=== PATIENT | female | born 1945 | race Caucasian/White ===

== ENCOUNTER 2022-11-24 15:46 | Emergency (ER) | payer MEDICARE, SELFPAY ==
[2022-11-24] VITALS (25 sets, daily range): BP systolic 111–147; BP diastolic 54–84; PULSE 69–82; RESP 18; TEMP 36.1; O2SAT 91–99; BMI 26.5
--- NOTE | 2022-11-24 16:37 | ED.DIZZY ---
HPI - Dizziness General Chief Complaint: Dizziness/Vertigo Stated Complaint: elevated heartrate Time Seen by Provider: 11/24/22 16:24 History of Present Illness HPI Narrative: This 77-year-old female comes in by ambulance because of feeling lightheaded with heart palpitations. She states that she felt some nausea and did have 1 vomiting episode yesterday. Today she was sitting at a stool with her and figuring out some health insurance issues. She began to feel lightheaded and her heart was pounding hard and fast according to her report. She did not have loss of consciousness. She did not have any chest pain. She did feel some shortness of breath. She did not report any diaphoresis. She states that she feels back to normal now. She does have a follow-up appointment tomorrow with Cardiology at [facility]. She did have a stent placed 10 years ago. She is currently taking Eliquis and aspirin. Her street engineer had her discontinue her metoprolol. She was on 50 mg twice a day and this was tapered down to where her last dose was yesterday. She does arrive with normal vital signs. Related Data Home Medications Medication Instructions Recorded Confirmed apixaban 5 mg tablet (Eliquis) 5 mg PO Q12H 11/24/22 11/24/22 atorvastatin 40 mg tablet 40 mg PO DAILY 11/24/22 11/24/22 estradiol 0.01% (0.1 mg/gram) 1 appful vaginal 11/24/22 vaginal cream metoprolol tartrate 50 mg tablet mg 11/24/22 Allergies Allergy/AdvReac Type Severity Reaction Status Date / Time No Known Drug Allergies Allergy Verified 11/24/22 16:02 Review of Systems Status of ROS: Reports: 10 or more systems reviewed and unremarkable except as noted in History and below Narrative: Constitutional: No fevers, no weight gain or loss. Eyes: No discharge. No vision changes. HENT: No congestion, no sore throat, no ear pain. Cardiovascular: No chest pain. She reports pounding heart with increased rate prior to arrival here. Respiratory: No shortness of breath, no wheezes, no cough. Gastrointestinal: No abdominal pain, no diarrhea. She has had some nausea and did have vomiting episode yesterday. Genitourinary: No dysuria, no hematuria. Musculoskeletal: Normal range of motion. Skin: No rashes, no pruritis. Neurological: No dizziness, weakness, sensory change, speech change. Endo/Heme/Allergies: No bruising or bleeding. No polydipsia. Pysch: no suicidality, no anxiety, no insomnia. All other systems reviewed and are negative. PFSH PFSH Social History Smoking Status: Former smoker How often do you have a drink containing alcohol: monthly or less How often do you have six or more drinks on one occasion: Never AUDIT-C Alcohol total score: 1 Non-prescribed substance use: denies use Exam Narrative: Exam Narrative: Constitutional: Well-developed, well-nourished, no acute distress. HEENT: Normocephalic, atraumatic. Neck: Normal range of motion. Nontender. Supple. Heart: Regular. No murmurs. Normal rate. Intact distal pulses. Lungs: Clear to auscultation. No chest discomfort. No wheezes, rhonchi, or rales. Abdomen: Normal bowel sounds. Nontender. No rebound tenderness. Genitalia: Deferred. Back: No midline tenderness. Normal range of motion. Extremities: Normal range of motion. No injury. Skin: Intact. No rash. Warm. No erythema or pallor. Neurologic: No altered sensation. No weakness. Alert and oriented. Psychiatric: No suicidality. No anxiety or depression. No insomnia. Nursing notes and vitals signs are reviewed. Const: Vital Signs, click to edit/add: Vital Signs - 24 hr 11/24/22 15:56 11/24/22 16:12 11/24/22 16:15 Temperature 97.0 F L Pulse Rate 81 69 Pulse Rate [Right Pulse Oximeter] 81 Respiratory Rate 18 Blood Pressure Blood Pressure [Ri ght Upper Arm] 147/84 H Pulse Oximetry 96 96 99 Oxygen Delivery Me thod Room Air 11/24/22 16:16 11/24/22 16:30 11/24/22 16:32 Temperature Pulse Rate 80 82 73 Pulse Rate [Right Pulse Oximeter] Respiratory Rate Blood Pressure 125/68 134/77 Blood Pressure [Ri ght Upper Arm] Pulse Oximetry 91 95 92 Oxygen Delivery Me thod 11/24/22 16:45 11/24/22 16:47 11/24/22 17:00 Temperature Pulse Rate 73 74 Pulse Rate [Right Pulse Oximeter] Respiratory Rate Blood Pressure 130/72 Blood Pressure [Ri ght Upper Arm] Pulse Oximetry 97 97 Oxygen Delivery Me thod 11/24/22 17:02 11/24/22 17:15 11/24/22 17:17 Temperature Pulse Rate 73 81 82 Pulse Rate [Right Pulse Oximeter] Respiratory Rate Blood Pressure 124/57 L 128/54 L Blood Pressure [Ri ght Upper Arm] Pulse Oximetry 98 98 97 Oxygen Delivery Me thod 11/24/22 17:18 11/24/22 17:30 11/24/22 17:32 Temperature Pulse Rate 80 73 74 Pulse Rate [Right Pulse Oximeter] Respiratory Rate Blood Pressure 113/55 L Blood Pressure [Ri ght Upper Arm] Pulse Oximetry 97 97 96 Oxygen Delivery Me thod 11/24/22 17:45 11/24/22 17:46 11/24/22 18:00 Temperature Pulse Rate 72 77 79 Pulse Rate [Right Pulse Oximeter] Respiratory Rate Blood Pressure 119/57 L Blood Pressure [Ri ght Upper Arm] Pulse Oximetry 97 97 98 Oxygen Delivery Me thod 11/24/22 18:02 11/24/22 18:15 11/24/22 18:16 Temperature Pulse Rate 77 82 74 Pulse Rate [Right Pulse Oximeter] Respiratory Rate Blood Pressure 112/78 126/58 L Blood Pressure [Ri ght Upper Arm] Pulse Oximetry 96 95 96 Oxygen Delivery Me thod 11/24/22 18:17 11/24/22 18:30 11/24/22 18:31 Temperature Pulse Rate 81 74 74 Pulse Rate [Right Pulse Oximeter] Respiratory Rate Blood Pressure 111/60 Blood Pressure [Ri ght Upper Arm] Pulse Oximetry 93 97 97 Oxygen Delivery Me thod Course Vital Signs Vital signs: Initial Vital Signs Temperature 97.0 F L 11/24/22 15:56 Temperature Source Temporal Artery Scan 11/24/22 15:56 Pulse Rate 81 11/24/22 15:56 Respiratory Rate 18 11/24/22 15:56 Blood Pressure 147/84 H 11/24/22 15:56 Blood Pressure Mean 105 11/24/22 15:56 Blood Pressure Position Sitting 11/24/22 15:56 Pulse Oximetry 96 11/24/22 15:56 Oxygen Delivery Method 11/24/22 15:56 Vital Signs Temperature 97.0 F L 11/24/22 15:56 Pulse Rate 81 11/24/22 15:56 Respiratory Rate 18 11/24/22 15:56 Blood Pressure 147/84 H 11/24/22 15:56 Pulse Oximetry 96 11/24/22 15:56 Oxygen Delivery Method 11/24/22 15:56 Temperature 97.0 F L 11/24/22 15:56 Pulse Rate 74 11/24/22 18:31 Respiratory Rate 18 11/24/22 15:56 Blood Pressure 111/60 11/24/22 18:31 Pulse Oximetry 97 11/24/22 18:31 Oxygen Delivery Method 11/24/22 15:56 MDM - Dizziness MDM Narrative Medical decision making narrative: This patient comes in reporting some palpitations and lightheadedness in an episode that occurred prior to arrival. She arrives here feeling back to normal and has normal vital signs. EKG and lab results also returned with reassuring findings. She is now finishing a taper off from metoprolol 50 mg twice a day. She followed instructions of her doctor to taper off of this medicine over these 5 days. There may be some rebound effect that contributed to her symptoms today. She was also sitting and working on a matter that was a bit stressful. Additionally she did not have much to eat or drink today. In any event amidst the various contributors toward these symptoms, she feels back to normal at this time and is okay to be discharged home. She does have a follow-up appointment with cardiology clinic tomorrow. Lab Data Labs: Lab Results 11/24/22 11/24/22 11/24/22 Range/Units 16:37 16:45 16:45 WBC 6.51 (4.50-11.00) K/uL RBC 4.85 (4.00-5.20) m/uL Hgb 15.4 (12.0-16.0) gm/dL Hct 44.4 (33.0-51.0) % MCV 92 (80-100) fL MCH 32 (26-34) pg MCHC 35 (32-36) gm/dL RDW Coeff of Shorty 11.6 (11.5-15.5) % Plt Count 218 (140-440) K/uL Neut % (Auto) 78.4 H (42.0-72.0) % Lymph % (Auto) 14.4 L (20-44) % Wilkinson % (Auto) 5.8 (0.0-11.0) % Eos % (Auto) 0.6 (0.0-7.0) % Baso % (Auto) 0.8 (0.0-3.0) % Neut # (Auto) 5.10 (1.7-7.0) K/uL Lymph # (Auto) 0.90 (0.90-2.90) K/uL Wilkinson # (Auto) 0.40 (0.00-0.90) K/UL Eos # (Auto) 0.04 (0.00-0.50) K/uL Baso # (Auto) 0.05 (0.00-0.30) K/uL Sodium 139 (135-149) mmol/L Potassium 3.7 (3.6-5.1) mmol/L Chloride 107 (96-114) mmol/L Carbon Dioxide 25 (20-32) mmol/L BUN 15 (7-30) mg/dL Creatinine 0.6 (0.5-1.5) mg/dL Estimated Creat Clear 36.67 Estimated GFR 92 ml/min Glucose 99 (60-115) mg/dL Calcium 9.4 (8.4-10.6) mg/dL POC Troponin I 0.00 L (0.01-0.04) ng/ml ECG Data Attestation: I personally reviewed and interpreted this ECG as follows: Interpretation: Sinus rhythm with premature atrial complexes. There are no ST changes but there is T-wave inversion in the inferior leads. Rate is 81 beats per minute. Discharge Plan Discharge Clinical Impression: Episodic lightheadedness, Palpitations Patient Disposition: Home w/ Parent or Adult Condition: Improved Additional Instructions: Continue current plans. Follow up with Cardiology Clinic as scheduled tomorrow. Return if worsening. Prescriptions: No Action Eliquis 5 mg tablet 5 mg PO Q12H Label Comments: TAKE 1 TABLET BY MOUTH TWICE DAILY atorvastatin 40 mg tablet 40 mg PO DAILY Label Comments: TAKE 1 TABLET BY MOUTH EVERY DAY estradiol 0.01 % (0.1 mg/gram) cream 1 appful VAGINAL Label Comments: PLACE A PEA-SIZED AMOUNT INSIDE THE VAGINAL CANAL NIGHTLY FOR 2 WEEKS THEN 2 NIGHTS PER WEEK AFTER metoprolol tartrate 50 mg tablet Label Comments: TAKE 1 TABLET BY MOUTH TWICE A DAY Follow Up/Referrals: Kathy Larose MD [Primary Care Provider] - Stand Alone Forms: [employer] Info Instructions
[2022-11-24 16:57] LABS: Basophils Absolute Auto 0.05 K/uL (0.00-0.30); Basophils Percent Auto 0.8 % (0.0-3.0); Eosinophils Absolute Auto 0.04 K/uL (0.00-0.50); Eosinophils Percent Auto 0.6 % (0.0-7.0); Hematocrit 44.4 % (33.0-51.0); Hemoglobin* 15.4 gm/dL (12.0-16.0); Lymphocytes Percent Auto 14.4 % (20-44); Mean Corpuscular HGB Conc 35 gm/dL (32-36); Mean Corpuscular Hemoglobin 32 pg (26-34); Mean Corpuscular Volume 92 fL (80-100); Monocytes Percent Auto 5.8 % (0.0-11.0); Neutrophils Percent Auto 78.4 % (42.0-72.0); Platelet Count* 218 K/uL (140-440); RDW Coefficient of Variation % 11.6 % (11.5-15.5); Red Blood Count 4.85 m/uL (4.00-5.20); White Blood Count* 6.51 K/uL (4.50-11.00)
[2022-11-24 17:05] LABS: Slide Review Reflex No
[2022-11-24 17:19] LABS: Chloride* 107 mmol/L (96-114); Potassium* 3.7 mmol/L (3.6-5.1); Sodium* 139 mmol/L (135-149)
[2022-11-24 17:21] LABS: Creatinine* 0.6 mg/dL (0.5-1.5); Est. Creatinine Clearance* 36.67; Estimated Glomerular Filt Rate 92 ml/min
[2022-11-24 17:22] LABS: Blood Urea Nitrogen* 15 mg/dL (7-30); Calcium* 9.4 mg/dL (8.4-10.6); Carbon Dioxide* 25 mmol/L (20-32); Glucose* 99 mg/dL (60-115)
== END 2022-11-24 19:23 | disposition home or self-care (01) ==
PROVIDERS: Emergency Provider Emergency Medicine Emergency Medical Services; PCP Family Medicine
DX: R42 Dizziness and giddiness (principal); R00.2 Palpitations
CPT/HCPCS: 36415; 80048; 84443; 84484; 85025; 99284; 99285

== ENCOUNTER 2023-06-04 00:30 | Emergency (ER) | payer MEDICARE, SELFPAY ==
[2023-06-04] VITALS (20 sets, daily range): BP systolic 119–144; BP diastolic 60–71; PULSE 56–75; RESP 16–18; TEMP 36.5; O2SAT 93–98; BMI 26.9
--- NOTE | 2023-06-04 00:58 | ED.GENADULT ---
HPI - General Adult General Chief complaint: Arrhythmia/Palpitations Stated complaint: irregular heartbeat Time Seen by Provider: 06/04/23 00:52 History of Present Illness HPI narrative: since about 2200 has been feeling her heart has been irregular, hx of afib. reports feeling a bit run down , states she took a nitro sublingual proir to arrival due to feeling her heartbeat felt off, denies any pain. a week ago she changed her meds and started on diltiazem. also on elequis for her afib. denies SOB or chest pain. hx stent placement in 2013 at [facility] 77-year-old woman with concern of irregular heartbeat. Underlying history of atrial fibrillation anticoagulated with Eliquis. Says was trying to go to bed tonight her heart was flip-flopping. Measured blood pressures in noting 154 systolic. Concerned about having stroke or heart attack. Did take a nitro. Was never having any chest pain or shortness of breath. I thought initially when she was describing this to me that her pulse was 154; this was not the case. She was not lightheaded or diaphoretic. No nausea. Was initiated on diltiazem a week ago. History of cardiac stenting, I believe just 1. Related Data Home Medications Medication Instructions Recorded Confirmed apixaban 5 mg tablet (Eliquis) 5 mg PO Q12H 11/24/22 11/24/22 atorvastatin 40 mg tablet 40 mg PO DAILY 11/24/22 11/24/22 estradiol 0.01% (0.1 mg/gram) 1 appful vaginal 11/24/22 vaginal cream diltiazem HCl 120 mg 120 mg PO DAILY 06/04/23 06/04/23 capsule,extended release 24 hr Allergies Allergy/AdvReac Type Severity Reaction Status Date / Time No Known Drug Allergies Allergy Verified 11/24/22 16:02 Review of Systems Status of ROS: Reports: 6 or more systems reviewed and unremarkable except as noted in History and below PFSH PFS Social History Smoking Status: Former smoker Do you use any of these nicotine containing products: None How often do you have a drink containing alcohol: monthly or less How often do you have six or more drinks on one occasion: Never AUDIT-C Alcohol total score: 1 Non-prescribed substance use: denies use Exam Narrative: Exam Narrative: Pleasant. NAD. Mildly anxious perhaps. Skin is warm and dry. Extremities are without edema. Lungs are clear heart is in a regular rhythm. Normal rate. Cranial nerves 2-12 intact. She is breathing easily. Lungs are clear. Abdomen is soft. Well-perfused peripherally. Const: Vital Signs, click to edit/add: Vital Signs - 24 hr 06/04/23 00:35 06/04/23 00:54 06/04/23 01:00 Temperature 97.7 F Pulse Rate 71 75 Pulse Rate [Pulse Oximeter] 62 Respiratory Rate 18 Blood Pressure Blood Pressure [Ri ght Upper Arm] 137/68 Pulse Oximetry 96 96 97 Oxygen Delivery Me thod Room Air 06/04/23 01:07 06/04/23 01:08 06/04/23 01:15 Temperature Pulse Rate 64 67 71 Pulse Rate [Pulse Oximeter] Respiratory Rate 16 Blood Pressure 126/67 Blood Pressure [Ri ght Upper Arm] Pulse Oximetry 96 95 95 Oxygen Delivery Me thod 06/04/23 01:17 06/04/23 01:25 06/04/23 01:30 Temperature Pulse Rate 72 56 L 72 Pulse Rate [Pulse Oximeter] Respiratory Rate 16 16 Blood Pressure 126/66 144/60 H Blood Pressure [Ri ght Upper Arm] Pulse Oximetry 96 93 94 Oxygen Delivery Me thod 06/04/23 01:32 06/04/23 01:45 06/04/23 01:47 Temperature Pulse Rate 64 58 L 65 Pulse Rate [Pulse Oximeter] Respiratory Rate 18 16 Blood Pressure 137/63 119/62 Blood Pressure [Ri ght Upper Arm] Pulse Oximetry 97 96 97 Oxygen Delivery Me thod 06/04/23 02:00 06/04/23 02:02 06/04/23 02:03 Temperature Pulse Rate 67 64 58 L Pulse Rate [Pulse Oximeter] Respiratory Rate 18 Blood Pressure 128/67 Blood Pressure [Ri ght Upper Arm] Pulse Oximetry 96 96 96 Oxygen Delivery Me thod 06/04/23 02:15 06/04/23 02:17 06/04/23 02:18 Temperature Pulse Rate 67 64 66 Pulse Rate [Pulse Oximeter] Respiratory Rate 18 Blood Pressure 132/65 Blood Pressure [Ri ght Upper Arm] Pulse Oximetry 98 96 98 Oxygen Delivery Me thod 06/04/23 02:30 06/04/23 02:32 Temperature Pulse Rate 68 66 Pulse Rate [Pulse Oximeter] Respiratory Rate Blood Pressure 142/71 H Blood Pressure [Ri ght Upper Arm] Pulse Oximetry 98 96 Oxygen Delivery Me thod Documenting provider has reviewed patient's vital signs: yes Course Vital Signs Vital signs: Initial Vital Signs Temperature 97.7 F 06/04/23 00:35 Temperature Source Temporal Artery Scan 06/04/23 00:35 Pulse Rate 62 06/04/23 00:35 Respiratory Rate 18 06/04/23 00:35 Blood Pressure 137/68 06/04/23 00:35 Blood Pressure Mean 91 06/04/23 00:35 Blood Pressure Position Supine 06/04/23 00:35 Pulse Oximetry 96 06/04/23 00:35 Oxygen Delivery Method Room Air 06/04/23 00:35 Vital Signs Temperature 97.7 F 06/04/23 00:35 Pulse Rate 62 06/04/23 00:35 Respiratory Rate 18 06/04/23 00:35 Blood Pressure 137/68 06/04/23 00:35 Pulse Oximetry 96 06/04/23 00:35 Oxygen Delivery Method Room Air 06/04/23 00:35 Temperature 97.7 F 06/04/23 00:35 Pulse Rate 66 06/04/23 02:32 Respiratory Rate 18 06/04/23 02:17 Blood Pressure 142/71 H 06/04/23 02:32 Pulse Oximetry 96 06/04/23 02:32 Oxygen Delivery Method Room Air 06/04/23 00:35 Medical Decision Making MDM Narrative Medical decision making narrative: We did place an IV. I think usually IV hydration helps in the circumstances. Was given a L normal saline. 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 Initial EKG shows normal sinus at a rate of 72 Labs are reassuring. She is already anticoagulated. Continues to feel ?better? during time in the emergency department. Then talking with her a seems to be going in and out of atrial fibrillation. Repeat EKG confirms rate controlled AFib. Was looking forward to leaving and returning home. See patient discharge plan Lab Data Lab results reviewed: Yes I reviewed the patient's lab results Labs: Lab Results 06/04/23 Range/Units 01:25 WBC 6.24 (4.50-11.00) K/uL RBC 4.65 (4.00-5.20) m/uL Hgb 14.6 (12.0-16.0) gm/dL Hct 43.5 (33.0-51.0) % MCV 94 (80-100) fL MCH 31 (26-34) pg MCHC 34 (32-36) gm/dL RDW Coeff of Shorty 11.8 (11.5-15.5) % Plt Count 193 (140-440) K/uL Neut % (Auto) 63.0 (42.0-72.0) % Lymph % (Auto) 22.4 (20-44) % Day % (Auto) 9.1 (0.0-11.0) % Eos % (Auto) 4.0 (0.0-7.0) % Baso % (Auto) 1.3 (0.0-3.0) % Neut # (Auto) 3.93 (1.7-7.0) K/uL Lymph # (Auto) 1.40 (0.90-2.90) K/uL Day # (Auto) 0.60 (0.00-0.90) K/UL Eos # (Auto) 0.25 (0.00-0.50) K/uL Baso # (Auto) 0.08 (0.00-0.30) K/uL Abs Immat Gran (auto) 0.01 (0.00-0.30) K/uL Imm/Tot Granulo (auto) 0.2 % Sodium 137 (135-149) mmol/L Potassium 3.4 L (3.6-5.1) mmol/L Chloride 106 (96-114) mmol/L Carbon Dioxide 24 (20-32) mmol/L BUN 13 (7-30) mg/dL Creatinine 0.7 (0.5-1.5) mg/dL Estimated Creat Clear 36.67 Estimated GFR 88 ml/min Glucose 103 (60-115) mg/dL Calcium 8.9 (8.4-10.6) mg/dL ECG Data Attestation: I personally reviewed and interpreted this ECG as follows: (Sinus rhythm. Rate of 72 repeat EKG then shows atrial fibrillation rate controlled at 76) Discharge Plan Discharge Clinical Impression: Paroxysmal atrial fibrillation Patient Disposition: Home w/ Parent or Adult Condition: Improved Additional Instructions: I am glad you are feeling better. Please take care to stay well-hydrated. Return for persistently rapid heart rate, persistent/increasing lightheadedness or shortness of breath. Looks like you had been in out of rate controlled atrial fibrillation during your time here. You can follow-up with your primary care provider to discuss this further. You may also call to Cardiology. Prescriptions: No Action Eliquis 5 mg tablet 5 mg PO Q12H Patient Comments: TAKE 1 TABLET BY MOUTH TWICE DAILY atorvastatin 40 mg tablet 40 mg PO DAILY Patient Comments: TAKE 1 TABLET BY MOUTH EVERY DAY estradiol 0.01 % (0.1 mg/gram) cream 1 appful VAGINAL Patient Comments: PLACE A PEA-SIZED AMOUNT INSIDE THE VAGINAL CANAL NIGHTLY FOR 2 WEEKS THEN 2 NIGHTS PER WEEK AFTER diltiazem HCl 120 mg capsule,extended release 24hr 120 mg PO DAILY Follow Up/Referrals: Kathy Larose MD [Primary Care Provider] - Stand Alone Forms: [employer] Info Instructions
[2023-06-04] MEDS: 0.9 % SODIUM CHLORIDE 1000 ml 1,000 ML IV (01:27)
[2023-06-04 01:34] LABS: Basophils Absolute Auto 0.08 K/uL (0.00-0.30); Basophils Percent Auto 1.3 % (0.0-3.0); Eosinophils Absolute Auto 0.25 K/uL (0.00-0.50); Hematocrit 43.5 % (33.0-51.0); Hemoglobin* 14.6 gm/dL (12.0-16.0); Immature Granulocytes Abs Auto 0.01 K/uL (0.00-0.30); Immature Granulocytes Pct Auto 0.2 %; Lymphocytes Percent Auto 22.4 % (20-44); Mean Corpuscular HGB Conc 34 gm/dL (32-36); Mean Corpuscular Hemoglobin 31 pg (26-34); Mean Corpuscular Volume 94 fL (80-100); Monocytes Percent Auto 9.1 % (0.0-11.0); Neutrophils Absolute Auto 3.93 K/uL (1.7-7.0); Platelet Count* 193 K/uL (140-440); RDW Coefficient of Variation % 11.8 % (11.5-15.5); Red Blood Count 4.65 m/uL (4.00-5.20); White Blood Count* 6.24 K/uL (4.50-11.00)
[2023-06-04 01:36] LABS: Slide Review Reflex No
[2023-06-04 02:04] LABS: Sodium* 137 mmol/L (135-149)
[2023-06-04 02:05] LABS: Blood Urea Nitrogen* 13 mg/dL (7-30); Calcium* 8.9 mg/dL (8.4-10.6); Carbon Dioxide* 24 mmol/L (20-32); Chloride* 106 mmol/L (96-114); Creatinine* 0.7 mg/dL (0.5-1.5); Est. Creatinine Clearance* 36.67; Estimated Glomerular Filt Rate 88 ml/min; Glucose* 103 mg/dL (60-115); Potassium* 3.4 mmol/L (3.6-5.1)
--- NOTE | 2023-06-04 02:50 | PC.NURSE ---
patient DC with , states understanding of DC instructions with no further questions
== END 2023-06-04 02:46 | disposition home or self-care (01) ==
PROVIDERS: Emergency Provider Family Medicine; PCP Family Medicine
DX: I48.0 Paroxysmal atrial fibrillation (principal)
CPT/HCPCS: 36415; 80048; 85025; 93005; 96360; 99284; J7030

== ENCOUNTER 2023-10-12 12:36 | Emergency (ER) | payer MEDICARE, SELFPAY ==
[2023-10-12 12:59] VITALS: BP 148/80; PULSE 94; RESP 18; TEMP 36.2; O2SAT 94; BMI 26.0
--- NOTE | 2023-10-12 15:54 | ED.GENADULT ---
HPI - General Adult General Chief complaint: Unspecified Complaint, Adult Stated complaint: half of head feels numb, feels bad Time Seen by Provider: 10/12/23 15:42 History of Present Illness HPI narrative: This 77-year-old female comes in reporting a mild headache this morning and had some tingling sensation in the left side of her face and head. She waited here for several hours to be seen as it was a busy day and now states at the time of my initial visit that her tingling sensations are much better. She does report a history of paroxysmal atrial fibrillation and is taking Eliquis. She does not report any speech change or unilateral weakness or other neurologic symptoms. She arrives here with normal vital signs. Her blood pressure on arrival is 148/80. She states that she measured a systolic pressure around 180 earlier today when she was not feeling right. Related Data Home Medications Medication Instructions Recorded Confirmed apixaban 5 mg tablet (Eliquis) 5 mg PO Q12H 11/24/22 11/24/22 atorvastatin 40 mg tablet 40 mg PO DAILY 11/24/22 11/24/22 estradiol 0.01% (0.1 mg/gram) 1 appful vaginal 11/24/22 vaginal cream diltiazem HCl 120 mg 120 mg PO DAILY 06/04/23 06/04/23 capsule,extended release 24 hr Allergies Allergy/AdvReac Type Severity Reaction Status Date / Time No Known Drug Allergies Allergy Verified 11/24/22 16:02 Review of Systems Status of ROS: Reports: 10 or more systems reviewed and unremarkable except as noted in History and below Narrative: Constitutional: No fevers, no weight gain or loss. Eyes: No discharge. No vision changes. HENT: No congestion, no sore throat, no ear pain. Cardiovascular: No chest pain, no palpitations. Respiratory: No shortness of breath, no wheezes, no cough. Gastrointestinal: No abdominal pain, no vomiting, no diarrhea. Genitourinary: No dysuria, no hematuria. Musculoskeletal: Normal range of motion. Skin: No rashes, no pruritis. Neurological: No dizziness, weakness, speech change. She reported some tingling sensation on the left side of her face and head which is now resolved. Endo/Heme/Allergies: No bruising or bleeding. No polydipsia. Pysch: no suicidality, no anxiety, no insomnia. All other systems reviewed and are negative. [facility] Social History Smoking Status: Former smoker Do you use any of these nicotine containing products: None How often do you have a drink containing alcohol: monthly or less How often do you have six or more drinks on one occasion: Never AUDIT-C Alcohol total score: 1 Non-prescribed substance use: denies use Exam Narrative: Exam Narrative: Constitutional: Well-developed, well-nourished, no acute distress. HEENT: Normocephalic, atraumatic. Neck: Normal range of motion. Nontender. Supple. Heart: Regular. No murmurs. Normal rate. Intact distal pulses. Lungs: Clear to auscultation. No chest discomfort. No wheezes, rhonchi, or rales. Abdomen: Normal bowel sounds. Nontender. No rebound tenderness. Genitalia: Deferred. Back: No midline tenderness. Normal range of motion. Extremities: Normal range of motion. No injury. Skin: Intact. No rash. Warm. No erythema or pallor. Neurologic: No altered sensation. No weakness. Alert and oriented. No facial asymmetry. Tongue is midline. Speech is normal. [id number] is normal. No pronator drift. 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 She is able to raise each leg to my hand. Psychiatric: No suicidality. No anxiety or depression. No insomnia. Nursing notes and vitals signs are reviewed. Const: Vital Signs, click to edit/add: Vital Signs - 24 hr 10/12/23 12:59 Temperature 97.1 F L Pulse Rate [Right Pulse Oximeter] 94 Respiratory Rate 18 Blood Pressure [Ri ght Upper Arm] 148/80 H Pulse Oximetry 94 Oxygen Delivery Me thod Room Air Course Vital Signs Vital signs: Initial Vital Signs Temperature 97.1 F L 10/12/23 12:59 Temperature Source Temporal Artery Scan 10/12/23 12:59 Pulse Rate 94 10/12/23 12:59 Respiratory Rate 18 10/12/23 12:59 Blood Pressure 148/80 H 10/12/23 12:59 Blood Pressure Mean 102 10/12/23 12:59 Blood Pressure Position Sitting 10/12/23 12:59 Pulse Oximetry 94 10/12/23 12:59 Oxygen Delivery Method Room Air 10/12/23 12:59 Vital Signs Temperature 97.1 F L 10/12/23 12:59 Pulse Rate 94 10/12/23 12:59 Respiratory Rate 18 10/12/23 12:59 Blood Pressure 148/80 H 10/12/23 12:59 Pulse Oximetry 94 10/12/23 12:59 Oxygen Delivery Method Room Air 10/12/23 12:59 Temperature 97.1 F L 10/12/23 12:59 Pulse Rate 94 10/12/23 12:59 Respiratory Rate 18 10/12/23 12:59 Blood Pressure 148/80 H 10/12/23 12:59 Pulse Oximetry 94 10/12/23 12:59 Oxygen Delivery Method Room Air 10/12/23 12:59 Medical Decision Making MDM Narrative Medical decision making narrative: This patient arrives with report of some tingling sensation on her side of her face which has now resolved. She did have a mild headache also this morning at the same time. She has not had any neurologic deficits. Her neurologic exam here today is completely normal. She also reported some palpitations and states that she has a history of paroxysmal atrial fibrillation. She is taking Eliquis. EKG today shows normal sinus rhythm without any evidence of ST or T-wave abnormalities. I did discuss other lab and imaging options with the patient but gave reassurance is regarding her exam and vital signs. In a process of shared decision-making she declined any further studies for now. She is in regular touch with a couple physicians and will follow-up as needed. ECG Data Attestation: I personally reviewed and interpreted this ECG as follows: Interpretation: Normal sinus rhythm. Rate is 62 beats per minute. There are no ST or T-wave abnormalities. Discharge Plan Discharge Clinical Impression: Feared condition not demonstrated Patient Disposition: Home, Self-Care Condition: Stable Additional Instructions: Continue current plans. Follow up with MD or return if worsening. Prescriptions: No Action Eliquis 5 mg tablet 5 mg PO Q12H Patient Comments: TAKE 1 TABLET BY MOUTH TWICE DAILY atorvastatin 40 mg tablet 40 mg PO DAILY Patient Comments: TAKE 1 TABLET BY MOUTH EVERY DAY estradiol 0.01 % (0.1 mg/gram) cream 1 appful VAGINAL Patient Comments: PLACE A PEA-SIZED AMOUNT INSIDE THE VAGINAL CANAL NIGHTLY FOR 2 WEEKS THEN 2 NIGHTS PER WEEK AFTER diltiazem HCl 120 mg capsule,extended release 24hr 120 mg PO DAILY Follow Up/Referrals: Hegland,Kathy I, MD [Primary Care Provider] - Stand Alone Forms: [employer] Info Instructions
--- OUTSIDE RECORDS SUMMARY | 2023-10-12 16:03 | XMS_ITS | Patient Health Record ---
Author Name Unknown Organization [facility] Address [id number] [place], [place] [id number] Care Team Providers Care Vc++ Developer Name Role Phone KATHERINEYOGIMARTI Primary Care Provider [phone] ALLERGIES Allergen (clinical drug ingredient) Drug/Non Drug Allergy documented on EMR Reaction Allergy Type Onset Date Status amoxicillin Amoxicillin (uncoded) Does not work Allergy Active REASON FOR REFERRAL No Information MEDICATIONS Medication SIG (Take, Route, Frequency, Duration) Notes Start Date End Date Status Eye Drops Relief Act dwaine Aldo Aspirin EC Low Dose 81 MG 1 tablet Orally Once a day Active Spironolactone 50 MG 1 tablet with food Orally Once a day Active Vitamin B-12 100 MCG Orally pt states 200mcg maybe Active Calcium 600-200 MG-UNIT Orally pt state s she take 600mg but is not sure Active Metoprolol Tartrate 25 MG 1 tablet Orally Twice a day Active Atorvastatin Calcium 40 MG 1 tablet Orally Once a day Active SOCIAL HISTORY Tobacco Use: Social History Observation Description Date Details (start date - stop date) Former Smoker NA - NA Sex Assigned At : Social History Observation Description Sex Assigned At Unknown Tobacco Use: Question Answer Notes Are you a: former smoker How long has it been since you last smoked? > 10 years Sexual Hx: Question Answer Notes Had sex in the last 12 months (vaginal, oral, or anal)? Yes with Men only Use protection? No Have you ever had an STD? No Alcohol Screening: Question Answer Notes Did you have a drink containing alcohol in the p ast year? No Points 0 Interpretation Negative PLAN OF TREATMENT No Information Insurance Providers Payer Name Payer Address Payer Phone Subscriber Number Group Number Insured Name Patient Relationship to Insured Coverage Start Date Coverage End Date NGS Medicare FQHC ATTN Claims [address] NAZARIO Connor [id number] YANICK ESPINAL Self - patient is the insured [employer] [address] [employer] [place] [id number] YANICK ESPINAL Self - patient is the insured MEDICAL (GENERAL) HISTORY Medical History History ICD Code HTN Cataracts Heart problems Surgical History Surgery Date(Month/Year) stent 2010 Hospitalization History Reason Date(Month/Year) heart
== END 2023-10-12 17:10 | disposition home or self-care (01) ==
PROVIDERS: Emergency Provider Emergency Medicine Emergency Medical Services; PCP Family Medicine
DX: R51.9 Headache, unspecified (principal); Z71.1 Person with feared health complaint in whom no diagnosis is made
CPT/HCPCS: 93005; 99284

== ENCOUNTER 2023-12-22 20:05 | Outpatient (CLI) | payer MEDICARE, SELFPAY ==
--- OUTSIDE RECORDS SUMMARY | 2023-12-22 20:10 | XMS_ITS | Clinical Summary ---
Author Name Unknown Organization [facility] Address [address] [place] [address] Care Team Providers Care Philosophy Instructor Name Role Phone Sofy Acuna PA-C Primary Care Provider Unav ailable Allergies Active Allergy Reactions Criticality Noted Date Comments Adhesive Tape Rash Medium 06/21/2018 Amoxicillin Muscle Pain (Myalgia) Medium 01/20/2017 No Known Allergies 10/25/2003 Medications Medication Sig Dispensed Refills Start Date End Date Status VITAMIN E 200 IU OR CAPS 0 10/25/2003 Active OSCAL 500/200 D-3 500-200 MG-IU OR TABS 1 TABLET DAILY 30 0 10/25/2003 Active VITAMIN C 1000 MG OR CHEW 1 TABLET DAILY 30 0 10/25/2003 Active MULTIVITAMINS OR TABS 1 qd 100 0 10/25/2003 Active OCUVITE EXTRA OR TABS 1 TABLET DAILY 30 0 10/25/2003 Active GARLIC 100 MG OR TABS 0 10/25/2003 Act dwaine ESTRACE VAGINAL 0.1 MG/GM VA CREA 0 10/25/2003 Active apixaban ANTICOAGULANT (ELIQUIS) 5 MG tablet Take 5 mg by mouth 2 times daily 0 Active atorvastatin (LIPITOR) 40 MG tablet Take 40 mg by mouth daily 0 Active spironolactone (ALDACTONE) 50 MG tablet Take 25 mg by mouth daily 0 Active cycloSPORINE (RESTASIS) 0.05 % ophthalmic emulsion Place 1 drop into both eyes 2 times daily 0 Active dexamethasone (DECADRON) 0.1 % ophthalmic suspension Place 1-2 drops into both ears 4 times daily as needed (itching) 0 Active Immunizations Name Administration Dates Next Due Influenza Vaccine 65+ (FLUAD) 09/05/2022, 021 Social History Tobacco Use Types Packs/Day Years Used Date Smoking Tobacco: Former Smokeless Tobacco: Never Alcohol Use Standard Drinks/Week Comments Not Currently 0 (1 standard drink = 0.6 oz pur e alcohol) Adolescent Education Answer Date Record ed Getting School Help Needed Not on file 08/30 Sex and Gender Information Value Date Recorded Sex Assigned at Not on file Gender Identity Not on file Sexual Orientation Not on file Last Filed Vital Signs Vital Sign Reading Time Taken Comments Blood Pressure 130/67 12/04/2022 9:38 AM MANAGEMENT PLANNER Pulse 85 12/04/2022 9:39 AM MANAGEMENT PLANNER Temperature 36.6 ??C (97.9 ??F) 12/04/2022 7:49 AM CS T Respiratory Rate 21 12/04/2022 9:39 AM MANAGEMENT PLANNER Oxygen Saturation 99% 12/04/2022 7:49 AM MANAGEMENT PLANNER Inhaled Oxygen Concentration - - Weight 70.7 kg (155 lb 13.8 oz) 03/07/2022 1:19 PM CDT Height 157.5 cm (5' 2) 03/07/2022 1:19 PM CDT Body Mass Index 28.51 03/07/2022 1:19 PM CDT Plan of Treatment Health Maintenance Due Date Last Done Comments ADVANCE CARE PLANNING 1945 ANNUAL REVIEW OF HM ORDERS 1945 DEXA 1945 HEPATITIS C SCREENING 1962 LIPID 1984 LUNG CANCER SCREENING 1994 RSV VACCINE ( & 60+) (1 - 1-dose 60+ series) 2004 FALL RISK ASSESSMENT 2009 DTAP/TDAP/TD IMMUNIZATION (2 - Td or Tdap) 08/03/2022 08/03/2012, 05/13/2006 COVID-19 Vaccine ( - season) 2023 11/13/2021, 02/01/2021, 01/04/2021 INFLUENZA VACCINE (#1) 2023 , 08/14/2021, 08/02/2020, Additional history exists MEDICARE ANNUAL WELLNESS VISIT 10/02/2023 10/02/2022, 09/11/2021 PHQ-2 (once per calendar year) 2023 GLUCOSE 12/03/2025 12/03/2022, 02/15, 02/11/2021 Pneumococcal Vaccine: 65+ Years Completed 11/02/2015, 05/28/2010 ZOSTER IMMUNIZATION Completed 09/27/2019, 01/06/2019, 08/03/2012 HPV IMMUNIZATION Aged Out No longer e ligible based on patient's age to complete this topic IPV IMMUNIZATION Aged Out No longer e ligible based on patient's age to complete this topic MENINGITIS IMMUNIZATION Aged Out No l onger eligible based on patient's age to complete this topic RSV MONOCLONAL ANTIBODY Aged Out No l onger eligible based on patient's age to complete this topic Advance Directives For more information, please contact: [phone] Latest Code Status on File Code Status Date Activated Date Inactivated Comments Full Code 12/03/2022 10:30 PM 12/04/2022 12:06 PM All basic and advanced life-sustaining interventions are performed as appropriate Question Answer Comments Code status determined by: Discussion with patient/ legal decision maker Care Teams Philosophy Instructor Relationship Specialty Start Date End Date Sofy Acuna PA-C PCP - General 02/11/21
--- OUTSIDE RECORDS SUMMARY | 2023-12-22 20:10 | XMS_ITS | Clinical Summary ---
Author Name Unknown Organization [facility] Address [address], [place] [address] Care Team Providers Care Sand Filler Name Role Phone Malka Montenegro APRN, JANAE Primary Care Prov ider Unavailable Source Comments You are receiving this document as you are listed as the primary care provider,follow-up provider, or the patient has been referred to you for consultation.This is in compliance with the Medicare and[facility] EHR Incentive Program,which states Providers who transition their patient to another setting of careor provider of care or refers their patient to another provider of care shouldprovide summary care record for each transition of care or referral. [facility] Allergies No known active allergies Medications Medication Sig Dispensed Refills Start Date End Date Status ATENOLOL 100 MG OR TABS Take one tablet by mouth every day. 0 Active RANITIDINE HCL 150 MG OR TABS Take one tablet by mouth two times each day (morning and evening). 60 11 05/20/2008 Active metoprolol tartrate (LOPRESSOR) 12.5 mg Take by mouth two times a day. 0 Active SPIRONOLACTONE OR 0 Active Social History Tobacco Use Types Packs/Day Years Used Date Smoking Tobacco: Never Smokeless Tobacco: Never Sex and Gender Information Value Date Recorded Sex Assigned at Not on file Gender Identity Not on file Sexual Orientation Not on file Last Filed Vital Signs Vital Sign Reading Time Taken Comments Blood Pressure 128/65 08/25/2018 3:39 PM CDT Pulse 58 08/25/2018 3:39 PM CDT Temperature 37.1 ??C (98.7 ??F) 08/25/2018 3:39 PM CD T Respiratory Rate 16 01/10/2017 4:24 PM WAREHOUSE DELIVERY MANAGER Oxygen Saturation 98% 08/25/2018 3:39 PM CDT Inhaled Oxygen Concentration - - Weight 72.1 kg (159 lb) 08/25/2018 3:39 PM CDT Height - - Body Mass Index - - Plan of Treatment Health Maintenance Due Date Last Done Comments Hep C Screening (Preventive Services) 1945 Medicare Annual Wellness Visit 1945 Dexa 2009 DTaP/Tdap/Td (2 - Tdap) 08/03/2022 08/03/2012, 05/13 COVID-19 Vaccine (3 - season) 2023 02/01/2021, 01/04/2021 Influenza (#1) 2023 08/02/2020, 08/16, 08/30/2018, Additional history exists Pneumococcal 65+ Yrs Completed 11/02/2015, 05/28/20 10 Zoster/Shingles Completed 09/27/2019, 12/18, 08/03/2012 HepA Aged Out No longer eligi ble based on patient's age to complete this topic HepB Aged Out No longer eligi ble based on patient's age to complete this topic Hib Aged Out No longer eligi ble based on patient's age to complete this topic IPV (Polio) Aged Out No longer eligi ble based on patient's age to complete this topic MCV4 Aged Out No longer eligi ble based on patient's age to complete this topic Care Teams Sand Filler Relationship Specialty Start Date End Date Malka Montenegro, SPACE BUYER, ROUTE SALESMAN AND DRIVER PCP - General Nurse Practitioner 01/10/17
--- OUTSIDE RECORDS SUMMARY | 2023-12-22 20:10 | XMS_ITS | Referral Summary ---
Author Name Unknown Organization [facility] Address [address] [place] [address] Care Team Providers Care Inspector Watch Train Name Role Phone Sofy Acuna PA-C Primary [...] Comments Blood Pressure 130/67 12/04/2022 9:38 AM CYBER SECURITY CONSULTANT Pulse 85 12/04/2022 9:39 AM CYBER SECURITY CONSULTANT Temperature 36.6 ??C (97.9 ??F) 12/04/2022 7:49 AM CS T Respiratory Rate 21 12/04/2022 9:39 AM CYBER SECURITY CONSULTANT Oxygen Saturation 99% 12/04/2022 7:49 AM CYBER SECURITY CONSULTANT Inhaled Oxygen Concentration - - Weight 70.7 kg (155 lb 13.8 oz) 03/07/2022 1:19 PM CDT Height 157.5 cm (5' 2) 03/07/2022 1:19 PM CDT Body Mass Index 28.51 03/07/2022 1:19 PM CDT Plan of Treatment Not on file Advance Directives For more information, please contact: [phone] Latest Code Status on File Code Status Date Activated Date Inactivated Comments Full Code 12/03/2022 10:30 PM 12/04/2022 12:06 PM All basic and advanced life-sustaining interventions are performed as appropriate Question Answer Comments Code status determined by: Discussion with patient/ legal decision maker Care Teams Inspector Watch Train Relationship Specialty Start Date End Date Sofy Acuna PA-C PCP - General 02/11/21
--- OUTSIDE RECORDS SUMMARY | 2023-12-22 20:11 | XMS_ITS | Clinical Summary ---
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 0 2 Active cyanocobalamin (VITAMIN B-12) 500 mcg tablet Take 1 tablet by mouth once daily. 0 3 Active Propylene Glycol-Glycerin (ARTIFICIAL TEARS,GLYCERIN-P EG,) 1-0.3 % drop Place into the eye(s). 0 4 Active multivitamin (DAILY MULTI-VITAMIN) tablet Take by mouth. 0 Active Calcium Citrate-Vitamin D2 1,500-200 mg-unit tablet Take 150 mg by mouth. 0 Active eucalyptus-peppe rmint oil (PONARIS) solnIndications: Rhinitis sicca 3 drops in each nostril in the morning and at bedtime. 15 mL 11 8 Active biotin 5,000 mcg TbDi Take 5,000 mcg by mouth once daily. 0 Active polyethylene glycoL (MIRALAX) 17 gram/dose powder Take 17 g by mouth once daily. 1 jar 3 8 Active famotidine (PEPCID) 20 mg tabletIndication s:Nausea Take 1 Tablet (20 mg) by mouth 2 times daily if needed for Heartburn. 180 Tablet 3 2 Active guaiFENesin (MUCINEX) 600 mg Extended-Release tablet Take 2 Tablets (1,200 mg) by mouth 2 times daily if needed for Expectoration. 0 3 Active fluticasone (50 mcg per actuation) nasal solution (FLONASE)Indicat ions:Acute non-recurrent frontal sinusitis Inhale 2 Sprays to both nostrils once daily. 16 g 0 3 Active nitroglycerin (NITROSTAT) 0.4 mg sublingual tabletIndication s:Arteriosclerot ic heart disease (ASHD) PLACE 1 UNDER THE TONGUE EVERY 5 MINUTES IF NEEDED FOR CHEST PAIN (UP TO 3 DOSES). 25 Tablet 6 3 Active azelastine 137 mcg/actuation (ASTELIN) nasal sprayIndications :Post-nasal drainage Inhale 1 [place] into affected nostril(s) two times daily. 30 mL 0 3 Active atorvastatin (LIPITOR) 40 mg tabletIndication s:Arteriosclerot ic heart disease (ASHD) TAKE 1 TABLET BY MOUTH EVERY DAY 90 Tablet 1 3 Active omeprazole (PRILOSEC) 20 mg Delayed-Release capsuleIndicatio ns:Positive occult stool blood test TAKE 1 CAPSULE BY MOUTH EVERY DAY BEFORE MEALS 90 Capsule 0 3 Active apixaban (ELIQUIS) 5 mg tabletIndication s:Paroxysmal atrial fibrillation (HC) Take 1 Tablet (5 mg) by mouth two times daily. 180 Tablet 3 3 Active cycloSPORINE (Restasis MultiDose) 0.05 % dropIndications: Bilateral keratitis sicca (HC) Place 1 Drop into the eye(s) two times daily. 5 mL 6 3 Active budesonide (PULMiCORT) 1 mg/2 mL neb suspensionIndica tions:Chronic rhinitis Put one respule in sinus rinse kit and irrigate twice daily 120 mL 0 4 Active dilTIAZem CD (CARDIZEM CD) 120 mg extended release 24 hr capsuleIndicatio ns:Paroxysmal atrial fibrillation (HC) Take 1 Capsule (120 mg) by mouth once daily AND 2 Capsules (240 mg) at bedtime. TAKE 2 CAPSULES BY MOUTH AT BEDTIME AND ONE CAPSULE IN THE MORNING.. 300 Capsule 3 4 Active cephalexin (KEFLEX) 500 mg capsuleIndicatio ns:Acute UTI Take 1 Capsule (500 mg) by mouth two times daily for 7 days. 14 Capsule 0 4 12/28/19 24 Active meclizine (ANTIVERT) 25 mg tabletIndication s:Cough Take 1 Tablet (25 mg) by mouth every 8 hours if needed for Vertigo. 30 Tablet 0 2 12/04/19 24 Discontinued(*Pa tient states no longer taking) hydrOXYzine HCL (ATARAX) 25 mg tabletIndication s:Situational stress Take 1-2 Tablets (25-50 mg) by mouth every 6 hours if needed for Anxiety. 30 Tablet 2 3 12/04/19 24 Discontinued(*Pa tient states no longer taking) budesonide (PULMiCORT) 1 mg/2 mL neb suspensionIndica tions:Chronic rhinitis Put one respule in sinus rinse kit and irrigate twice daily 120 mL 0 3 12/04/19 24 Discontinued(Reo rder (E-cancel not sent)) polyethylene glycol-electroly te (GOLYTELY) 236-22.74-6.74 -5.86 gram suspensionIndica tions:Encounter for screening colonoscopy Drink 2 liters (half the bottle) the day before colonoscopy and 2 liters (remaining prep) 6 hours prior to colonoscopy appointment. 4000 mL 0 3 11/25/19 24 Discontinued(*Pa tient states no longer taking) dilTIAZem CD (CARDIZEM CD) 120 mg extended release 24 hr capsuleIndicatio ns:Paroxysmal atrial fibrillation (HC) TAKE 2 CAPSULES BY MOUTH AT BEDTIME AND ONE CAPSULE IN THE MORNING. 90 Capsule 1 3 12/08/19 24 Discontinued Active Problems Problem Noted Date Diagnosed Date S/P hysterectomy 12/21/2023 Cystocele, unspecified 12/21/2023 Paroxysmal atrial fibrillation 10/02/2022 Chronic bronchitis, unspecified chronic bronchit is type 01/28/2022 Paroxysmal SVT (supraventricular tachycardia) Coronary artery disease of n ative artery of [place] heart with stable angina pectoris 11/27/2021 Bilateral keratitis sicca 09/11/2021 Hyperopia of both eyes with astigmatism and pres byopia 02/01/2018 Chronic thoracic back pain 12/01/2017 Bilateral pseudophakia 01/29/2017 Acute gastric erosion 01/21/2017 Overview: EGD 01/2017 erosions ASCVD (arteriosclerotic cardiovascular disease) 10/08/2015 Overview: -Stenting to diagonal one 05/2010 -Angiogram 06/2013: Patent diagonal one stent -Stress Myoview 09/2015 Small area of mild ischemia in the apical anterior wall and apex EF 65% Osteopenia 09/15/2013 Overview: 2005 Chest pain 06/27/2013 Dyslipidemia 06/06/2010 Arteriosclerotic heart disease (ASHD) 05/27/2010 Overview: - 05/27/10 Cor angio: 90% Prox D1, otherwise mild CAD, EF 65% by LV gram; s/p BMS to Diagonal Diverticulosis of colon (without mention of hemo rrhage) 05/13/2006 Overview: Colonoscopy January 2006 Colonoscopy 03/2012 diverticulosis repeat in 10 years VITREOUS DEGENERATION 03/18/2000 Essential hypertension 03/19/1999 Resolved Problems Problem Noted Date Diagnosed Date Resolved Date Palpitations 06/15/2023 10/19/2023 Episodic lightheadedness 06/15/202302/2023 Acute right-sided low back p ain without sciatica 12/01/2017 10/19/2023 Dyspnea 10/08/2015 10/19/2023 SOB (shortness of breath) 06/28/2013 Abdominal pain, epigastric 04/09/2012 1 12/20/2022 Overview: EGD 03/2012 Reactive gastropathy Other prolapse of vaginal wa lls without mention of uterine prolapse 04/12/2010 10/19/2023 HYPERCHOLESTEROLEMIA, PURE 05/24/2001 1 12/08/2014 LACRIMAL INSUFFICIENCY 03/18/200010/19 Encounters Date Type Department Care Team Description 12/21/2023 1:30 PM BOTTLE FEEDER Office Visit [facility] [address] [place] [address] Dia Glaser PA Vaginal Problem (Burning And Itching Since Thursday) 12/21/2023 Travel 12/17/2023 9:00 AM BOTTLE FEEDER Office Visit [facility] [address] [place] [address] Tammy Gregorio MD Follow Up (Abdominal pain and constipation, some relief but still having pain); Derm Problem (Purple spots on left leg and foot x 2 weeks ) 12/17/2023 Travel 12/08/2023 9:20 AM BOTTLE FEEDER Office Visit [facility] [address] [place] [address] Adarsh Degroot, OD Eye Exam (CEE) 12/08/2023 Travel 12/06/2023 Refill [facility] [address] [place] [address] Hayden Arcos MD Refill Request (Diltiazem Cd) 12/04/2023 10:00 AM BOTTLE FEEDER Office Visit [facility] [address] [place] [address] Parul Gambino, Sinus Problem (ongoing sinus issues for over a year. using a humidifier and nasal spray with little to no relief ) 12/04/2023 Travel 11/25/2023 2:40 PM BOTTLE FEEDER Ancillary Procedure [facility] [address] [place] [address] 11/25/2023 2:10 PM BOTTLE FEEDER Office Visit [facility] [address] [place] [address] Leola Jacob NP Gi Problem 11/25/2023 Travel 11/04/2023 Telephone [facility] [address] [place] [address] Damien Gates MD Appointment 10/19/2023 11:20 AM BOTTLE FEEDER Office Visit [facility] [address] [place] [address] Yeni Thompson MD [employer] Exam (Frequency and voiding in small amounts. Also, pt states has a prolapse. Tried a pessary fitting 3 months ago and all of them fell out. ) 10/19/2023 Travel 10/12/2023 Telephone [facility] [address] [place] [address] Kathy Larose MD Refill Request (METOPROLOL TARTRATE) 10/11/2023 Refill [facility] [address] [place] [address] Cortney Alcantar DO Refill Request (Omeprazole) 10/11/2023 Refill [facility] [address] [address] Paulie Valdovinos MD Refill Request (Eliquis, Atorvastatin) 10/10/2023 4:50 PM BOTTLE FEEDER Office Visit [address] [phone] Fatemeh Kumar NP Vaginal Problem 10/10/2023 Travel 10/09/2023 Refill [facility] [address] [place] [address] Hayden Arcos MD Refill Request (Diltiazem Cd) 10/02/2023 8:45 AM BOTTLE FEEDER Procedure Only [facility] [address] [place] [address] Wilfrid Rosales MD Procedure (Colonoscopy) 10/02/2023 Travel 09/30/2023 10:30 AM BOTTLE FEEDER Office Visit [facility] [address] [address] Paulie Valdovinos MD Heart Problem (Paroxysmal atrial fibrillation (HC)); Primary MD (Kathy Larose MD/) 09/30/2023 Travel 09/28/2023 Telephone [facility] [address] [place] [address] Wilfrid Rosales MD Screening 09/25/2023 11:30 AM BOTTLE FEEDER Office Visit [facility] [address] [place], [place] [phone] Rachel Norman PA Sinus Problem (Chronic sinusitis) 09/25/2023 Travel 09/21/2023 7:00 AM BOTTLE FEEDER Orders Only [facility] [address] [place], [place] [address] Lab from Last 3 Months Immunizations Name Administration Dates Next Due AMB Influenza, IIV3 (Age >=3 years)(Flu Clinic Only) 09/06/2013,09/20/2011,09/06/2008 COVID-19 vaccine (Moderna 100mcg/0.5mL) PF, MDV 02/01/2021,01/04/2021 COVID-19 vaccine (Pfizer-Bio NTech 30mcg/0.3mL) PF, MDV 11/13/2021 Hepatitis B (Peds) 06/30/2000,01/23/2000, 000 Influenza, High-dose Inactivated 020,08/25/2019,07/29/2016,2014,09/06/2014 Influenza, High-dose Quadriv alent Inactivated 12/14/2022 Influenza, IIV3 (Age 6-35 mos) 09/20/2011,2008 Influenza, IIV3 (Age >=3 years) 09/06/20 13,08/03/2012,09/25/2010,2007,09/23/2007,10/17/2005,09/27/2002 Influenza, Inactivated AIIV4 (Age 65+ Years) Preserv Free 07/17/2023,09/05/2022,08/14/2021 Influenza, Inactivated IIV3 (Age 65+ Years) Preserv Free 08/30/2018,07/27/2017 Pneumococcal Poly,23-Valent (Pneumovax) 05/28/2010 Pneumococcal conj 13-Valent (Prevnar 13) 11/02/2015 Td, Preservative Free (age > = 7 Years) 05/13/2006 Tdap 12/14/2022,08/03/2012 Zoster (Shingrix-RZV, recombinant) 09/27/2019, Zoster (Zostavax-ZVL, live) 08/03/2012 Family History Medical History Relation Name Comments Hypertension Brother 1 Hypertension Brother 2 Depression Brother 3 Mark Heart Disease Brother 3 Mark Hypertension Brother 3 Mark Thyroid Disease Daughter Other Father vascular dis Arthritis Mother Genetic Other cataract-sister s, mother~detached retina-sister~hypertension- mother, sisters~CAD- sister Hypertension Sister 1 Macular degeneration Sister 1 Hypertension Sister 2 Hypertension Sister 3 Cancer-breast No Family History Cancer-ovarian No Family History Relation Name Status Comments Brother 1 Alive Brother 2 Alive Brother 3 Mark Daughter Father lived till 90 Mother lived till 90 Other Sister 1 Sister 2 Sister 3 Alive Social History Tobacco Use Types Packs/Day Years Used Date Smoking Tobacco: Former Cigarettes 1 20 0 11/16/1959 - 11/16/1979 Smokeless Tobacco: Never Tobacco Cessation:Counseling Given: Yes Alcohol Use Standard Drinks/Week Comments Not Currently 0 (1 standard drink = 0.6 oz pur e alcohol) PHQ-2 Answer Date Recorded PHQ-2 TOTAL SCORE 1 08/13/2023 Social Connections Answer Date Recorded Frequency of Communication with Friends and Fami ly 0 09/09/2023 Financial Resource Strain Answer Date R ecorded Difficulty of Paying Living Expenses 3 09/09/2023 Difficulty of Paying Living Expenses Not on file 09/09/2023 Food Insecurity Answer Date Recorded Worried About Running Out of Food in the Last Ye ar 1 09/09/2023 Transportation Needs Answer Date Record ed Lack of Transportation (Medical) 1 09/09/2023 Housing Stability Answer Date Recorded Unable to Pay for Housing in the Last Year 1 09/09/2023 Sex and Gender Information Value Date Recorded Sex Assigned at Not on file Gender Identity Not on file Sexual Orientation Not on file Obstetrics History Para Term AB IAB SAB Ectopic Multiple Livin g Live Births 5 3 3 2 2 3 Date Outcome GA Total Labor Labor/2nd/3rd Weight Sex Delivery Anes PTL Rin A1 A5 Name Cl in SAB SAB Term Term Term Last Filed Vital Signs Vital Sign Reading Time Taken Comments Blood Pressure 130/62 12/21/2023 1:28 PM BOTTLE FEEDER Pulse 93 12/21/2023 1:28 PM BOTTLE FEEDER Temperature 36.6 ??C (97.9 ??F) 12/21/2023 1:28 PM CS T Respiratory Rate 16 12/21/2023 1:28 PM BOTTLE FEEDER Oxygen Saturation 96% 12/21/2023 1:28 PM BOTTLE FEEDER Inhaled Oxygen Concentration - - Weight 66.7 kg (147 lb) 12/21/2023 1:28 PM BOTTLE FEEDER Height 160 cm (5' 3) 09/30/2023 10:20 AM BOTTLE FEEDER Body Mass Index 26.04 09/30/2023 10:20 AM BOTTLE FEEDER Plan of Treatment Upcoming Encounters Date Type Department Care Team (Late st Contact Info) Description 12/23/2023 9:30 AM BOTTLE FEEDER Procedure Only [facility] [address] [place] [address] 01/08/2024 12:45 PM BOTTLE FEEDER Office Visit [facility] [address] [place] [address] Carlos Newman MD [address] [place] [address] 02/15/2024 10:00 AM CDT Office Visit [facility] [address] [place] [address] Damien Gates MD [address] [place] [address] Health Maintenance Due Date Last Done Comments COVID-19 vaccine series ( season) 2023 11/13/2021, 02/01/2021, 01/04/2021 Medicare Wellness for age 65+ 10/03/2023, 09/11/2021, 08/30/2018, Additional history exists Depression screening for age 12+ 08/14/2024 08/14/2023, 08/13/2023, 05/15/2023, Additional history exists BMI (ht and wt on same day) for age 18+ 09/30/2024 09/30/2023, 08/20/2023, 08/13/2023, Additional history exists Tetanus booster 12/14/2032 12/14/2022, 07/17, 05/13/2006 DEXA/DXA scan for age 65+ Completed 2012, 05/28/2011 (Declined) Pneumococcal series for age 65+ Completed 5, 05/28/2010 Zoster (shingles) series for age 50+ Completed 09/27/2019, 01/06/2019, 08/03/2012 Hepatitis C screening for ag e 18-79 Completed 09/11/2021 Tdap Completed 12/14/2022, 08/03/2012 Influenza for age 65+ Completed 07/17/2023 , 12/14/2022, 09/05/2022, Additional history exists Medical Devices Implanted Type Area [place] Device Identifier Shelf Expiration Date Model / Serial / Lot Lens Iol 22.0 Wf [id number]. 0 - [id number] Implanted:Qty: 1 on 09/18/2014 by Efrem Norman MD at [facility] Right: Eye [employer] 05/15/2019 [id number]-89. 0# / [id number] 180 / Lens Iol 22.5 Wf [id number]. 5 - [id number] Implanted:Qty: 1 on 02/18/2016 by Efrem Norman MD at [facility] Left: Eye [employer] 10/15/2020 [id number]. 5# / [id number] 112 / Procedures Procedure Name Priority Date/Time Associated Diagnosis Comments TRICHOMONAS, ANYA, AND BACTERIAL VAGINOSIS BY LENO Routine 12/21/2023 2:00 PM BOTTLE FEEDER Vaginal itching URINALYSIS MICROSCOPIC Routine 12/21/2023 1:54 PM BOTTLE FEEDER Dysuria URINE CULTURE Routine 12/21/2023 1:54 PM BOTTLE FEEDER Dysuria UA W/ SEDIMENT EXAM REFLEXED PER CRITERIA Routine 12/21/2023 1:54 PM BOTTLE FEEDER Dysuria XR ABDOMEN 1 VIEW Patient wait 11/25/2023 2:4 3 PM BOTTLE FEEDER Abdominal pain, LLQ (left lower quadrant) CBC WITH AUTO DIFFERENTIAL Routine 11/25/2023 2:39 PM BOTTLE FEEDER Abdominal pain, LLQ (left lower quadrant) COMP METABOLIC PANEL Routine 11/25/2023 2:39 PM BOTTLE FEEDER Abdominal pain, LLQ (left lower quadrant) CBC WITH AUTO DIFFERENTIAL Routine 11/25/2023 2:39 PM BOTTLE FEEDER Abdominal pain, LLQ (left lower quadrant) TRICHOMONAS, ANYA, AND BACTERIAL VAGINOSIS BY LENO Routine 10/10/2023 7:00 PM BOTTLE FEEDER Vaginal discharge URINALYSIS MICROSCOPIC STAT 10/10/2023 6:18 PM BOTTLE FEEDER Dysuria URINE CULTURE STAT 10/10/2023 6:18 PM BOTTLE FEEDER Dysuria UA W/ SEDIMENT EXAM REFLEXED PER CRITERIA STAT 10/10/2023 6:18 PM BOTTLE FEEDER Dysuria COLONOSCOPY 10/02/2023 8:41 AM BOTTLE FEEDER COLONOSCOPY DIAGNOSTIC LEROY 10/02/2023 8:20 AM BOTTLE FEEDER Fecal occult blood test positive OCCULT BLOOD IFOBT STOOL Routine 09/21/2023 10:24 AM BOTTLE FEEDER Dark stools from Last 3 Months Results * TRICHOMONAS, ANYA, AND BACTERIAL VAGINOSIS BY LENO (12/21/2023 2:00 PM BOTTLE FEEDER) Only the most recent of2 resultswithin the time period is included. ANYA SPECIES Negative Negative 10:29 PM BOTTLE FEEDER [facility] ANYA GLABRATA Negative Negative 12/21/2023 10:29 PM BOTTLE FEEDER [facility] TRICHOMONAS VVA Negative Negative 10:29 PM BOTTLE FEEDER [facility] BACTERIAL VAGINOSIS Negative Negative 12/21/2023 10:29 PM BOTTLE FEEDER [facility] TR[facility] LAB[facility] Other VAGINAL SWAB / Unknown Non-Blood / Unknown 12/21/2023 2:00 PM BOTTLE FEEDER 12/21/2023 2:07 PM BOTTLE FEEDER Dia [facility]IZ MICROBIOLOGY Performing Organization Address City/[facility]/ZIP Co de Phone Number [facility] [address] [place] [address], [place] * (ABNORMAL) URINALYSIS MICROSCOPIC (12/21/2023 1:54 PM BOTTLE FEEDER) Only the most recent of2 resultswithin the time period is included. RBC 3-5(A) 0-2, None Seen /HPF 12/21/2023 2:03 PM BOTTLE FEEDER [facility] WBC 11-25(A) 0-2, 3-5, None Seen /HPF 12/21/2023 2:03 PM BOTTLE FEEDER [facility] BACTERIA Moderate(A ) None Seen, Rare, Few Bacteria/H PF 12/21/2023 2:03 PM BOTTLE FEEDER [facility] EPITHELIAL CELLS Few None Seen, Few Epi/HPF 12/21/2023 2:03 PM BOTTLE FEEDER [facility] WHITE CELL CLUMPS Present(A) (none) 12/21/2023 2:03 PM BOTTLE FEEDER [facility] Urine URINE SPECIMEN / Unknown Non-Blood / Unknown 12/21/2023 1:54 PM BOTTLE FEEDER 12/21/2023 1:54 PM BOTTLE FEEDER Dia FELIZ URINE Performing Organization Address City/[facility]/ZIP Co de Phone Number [facility] [address] [place] [address], [place] [phone] * URINE CULTURE (12/21/2023 1:54 PM BOTTLE FEEDER) Only the most recent of2 resultswithin the time period is included. CULTURE <10,000 CFU/mL multiple organisms 12/22/2023 3:48 PM BOTTLE FEEDER [facility] TRAL LABORATORY Urine URINE SPECIMEN / Unknown Non-Blood / Unknown 12/21/2023 1:54 PM BOTTLE FEEDER 12/21/2023 1:54 PM BOTTLE FEEDER Dia [facility]ELIZ MICROBIOLOGY [facility] [facility] LAB[facility]AT[facility]-CENTRAL LABORATORY [address] [place] [address], [place] * (ABNORMAL) UA W/ SEDIMENT EXAM REFLEXED PER CRITERIA (12/21/2023 1:54 PM BOTTLE FEEDER) Only the most recent of2 resultswithin the time period is included. COLOR Yellow Yellow Color 12/21/2023 2:00 PM BOTTLE FEEDER [facility] CLARITY Slightly Cloudy(A) Clear Clarity 12/21/2023 2:00 PM BOTTLE FEEDER [facility] SPECIFIC GRAVITY,URINE 1.010 1.010, 1.015, 1.020, 1.025 12/21/2023 2:00 PM BOTTLE FEEDER [facility] PH,URINE 6.0 6.0, 7.0, 8.0, 5.5, 6.5, 7.5, 8.5 12/21/2023 2:00 PM BOTTLE FEEDER [facility] UROBILINOGEN, QUALITATIVE Normal Normal EU/dl 12/21/2023 2:00 PM BOTTLE FEEDER [facility] PROTEIN, URINE Negative Negative mg/dL 12/21/2023 2:00 PM BOTTLE FEEDER [facility] GLUCOSE, URINE Negative Negative mg/dL 12/21/2023 2:00 PM BOTTLE FEEDER [facility] KETONES,URINE Negative Negative mg/dL 12/21/2023 2:00 PM BOTTLE FEEDER [employer] KADIE BILIRUBIN,URI NE Negative Negative 12/21/2023 2:00 PM BOTTLE FEEDER [facility] OCCULT BLOOD,URINE Trace(A) Negative 12/21/2023 2:00 PM BOTTLE FEEDER [employer] KADIE NITRITE Negative Negative 12/21/2023 2:00 PM BOTTLE FEEDER [employer] KADIE LEUKOCYTE ESTERASE Large(A) Negative 12/21/2023 2:00 PM BOTTLE FEEDER [employer] KADIE Urine URINE SPECIMEN / Unknown Non-Blood / Unknown 12/21/2023 1:54 PM BOTTLE FEEDER 12/21/2023 1:54 PM BOTTLE FEEDER Dia Cristiana Alfredito FELIZ URINE [facility]AHMAN ENGLE [address] [place] [address], * XR ABDOMEN 1 VIEW (11/25/2023 2:43 PM BOTTLE FEEDER) Anatomical Region Laterality Modality Abdomen Computed Radiogr aphy 11/26/2023 2:36 PM BOTTLE FEEDER Narrative 11/26/2023 2:36 PM BOTTLE FEEDER For Patients: ??As a result of the Cures Act, medical imaging exams and procedure reports are released immediately into your electronic medical record. ??You may view this report before your referring provider. ??If you have questions, please contact your health care provider. INDICATION: Abdominal pain. TECHNIQUE: Supine abdomen IMPRESSION : Prior exam December 16, 2019 The bowel gas pattern is nonobstructive. Upright exam shows no free air under the hemidiaphragms. Moderate-large volume of colonic stool. No pathologic abdominal calcifications. Stable phleboliths in the pelvis Dictated by Presley Martinez MD @ Nov 26 2023 ??2:36PM (Electronically Signed) Pediatric and Body Radiology [email or web address] ?? Procedure Note Presley Martinez MD - 11/26/2023 For Patients: As a result of the Cures Act, medical imagingexams and procedure reports are released immediately into your electronicmedical record. You may view this report before your referring provider.If you have questions, please contact your health care provider. INDICATION: Abdominal pain. TECHNIQUE: Supine abdomen IMPRESSION : Prior exam December 16, 2019 The bowel gas pattern is nonobstructive. Upright exam shows no free air under the hemidiaphragms. Moderate-large volume of colonic stool. No pathologic abdominal calcifications. Stable phleboliths in the pelvis Dictated by Presley Martinez MD @ Nov 26 2023 2:36PM (Electronically Signed) Pediatric and Body Radiology [email or web address] Leola Jacob CASE FITTER GENERAL IMAGING * CBC WITH AUTO DIFFERENTIAL (11/25/2023 2:39 PM BOTTLE FEEDER) WHITE BLOOD COUNT 7.8 4.5 - 11.0 thou/cu mm 11/25/2023 2:42 PM [facility] RED BLOOD COUNT 4.65 4.00 - 5.20 mil/cu mm 11/25/2023 2:42 PM [facility] HEMOGLOBIN 14.5 12.0 - 16.0 g/dL 11/25/2023 2:42 PM [facility] HEMATOCRIT 43.2 33.0 - 51.0 % 11/25/2023 2:42 PM [facility] MCV 93 80 - 100 fL 11/25/2023 2:42 PM [facility] MCH 31.2 26.0 - 34.0 pg 11/25/2023 2:42 PM [facility] MCHC 33.6 32.0 - 36.0 g/dL 11/25/2023 2:42 PM [facility] RDW 12.9 11.5 - 15.5 % 11/25/2023 2:42 PM [facility] PLATELET COUNT 231 140 - 440 thou/cu mm 11/25/2023 2:42 PM [facility] MPV 9.5 6.5 - 11.0 fL 11/25/2023 2:42 PM [facility] % NEUT 70.9 % 11/25/2023 2:42 PM [facility] % LYMPH 18.0 % 11/25/2023 2:42 PM [facility] % MONO 6.7 % 11/25/2023 2:42 PM [facility] % EOS 3.6 % 11/25/2023 2:42 PM [facility] % BASO 0.8 % 11/25/2023 2:42 PM [facility] ABSOLUTE NEUTROPHILS 5.5 1.7 - 7.0 thou/cu mm 11/25/2023 2:42 PM [facility] ABSOLUTE LYMPHOCYTES 1.4 0.9 - 2.9 thou/cu mm 11/25/2023 2:42 PM [facility] ABSOLUTE MONOCYTES 0.5 <0.9 thou/cu mm 11/25/2023 2:42 PM [facility] ABSOLUTE EOSINOPHILS 0.3 <0.5 thou/cu mm 11/25/2023 2:42 PM [facility] ABSOLUTE BASOPHILS 0.1 <0.3 thou/cu mm 11/25/2023 2:42 PM [facility] Blood BLOOD SPECIMEN / Unknown Venipuncture / Unknown 11/25/2023 2:39 PM BOTTLE FEEDER 11/25/2023 2:39 PM BOTTLE FEEDER Leola Jacob NP HEMATOLOGY [facility] [address] [place] [address], * (ABNORMAL) COMP METABOLIC PANEL (11/25/2023 2:39 PM BOTTLE FEEDER) SODIUM 140 136 - 145 mmol/L 11/25/2023 10:06 PM [facility]AL [facility] POTASSIUM 3.8 3.5 - 5.1 mmol/L 11/25/2023 10:06 PM [facility] CHLORIDE 104 98 - 107 mmol/L 11/25/2023 10:06 PM [facility] CO2,TOTAL 26 22 - 29 mmol/L 11/25/2023 10:06 PM [facility] ANION GAP 10 5 - 18 11/25/2023 10:06 PM [facility] GLUCOSE 136(H) 70 - 99 mg/dL 11/25/2023 10:06 PM [facility] CALCIUM 9.1 8.8 - 10.2 mg/dL 11/25/2023 10:06 PM [facility] BUN 13 8 - 23 mg/dL 11/25/2023 10:06 PM [facility] CREATININE 0.68 0.50 - 0.90 mg/dL 11/25/2023 10:06 PM [facility] TRA LABORATORY BUN/CREAT RATIO 19 10 - 20 10:06 PM [facility] eGFR 89(L) >90 mL/min/1.7 3m2 11/25/2023 10:06 PM [facility] Comment:As of 2022, eG FR is calculated by the CKD-EPI creatinine equation without race adjustment. ??eGFR can be influenced by muscle mass, exercise, and diet. ??The reported eGFR is an estimation only and is only applicable if the renal function is stable. ALBUMIN 4.3 4.0 - 4.9 g/dL 11/25/2023 10:06 PM [facility] PROTEIN,TOTAL 6.6 6.0 - 8.0 g/dL 11/25/2023 10:06 PM [facility] BILIRUBIN,TOTAL 0.3 0.0 - 1.2 mg/dL 11/25/2023 10:06 PM [facility] ALK PHOSPHATASE 85 35 - 104 IU/L 11/25/2023 10:06 PM [facility] ALT (SGPT) 19 10 - 35 IU/L 11/25/2023 10:06 PM [facility] AST (SGOT) 26 10 - 35 IU/L 11/25/2023 10:06 PM [facility] Blood BLOOD SPECIMEN / Unknown Venipuncture / Unknown 11/25/2023 2:39 PM BOTTLE FEEDER 11/25/2023 2:39 PM BOTTLE FEEDER Leola Jacob NP CHEMISTRY [facility] [address] [place] [address], * COLONOSCOPY (10/02/2023 8:41 AM BOTTLE FEEDER) 10/02/2023 8:41 AM BOTTLE FEEDER Narrative Transcriptions Wilfrid Rosales MD - 10/02/2023 10:01 AM CST Patient Name: Maryellen Garland Procedure Date: 10/02/2023 Gender: Female Date of : 1945 Admit Type: Outpatient Procedure: Colonoscopy Proceduralist: Wilfrid Rosales MD , Lizteh Thibodeaux RN (Nurse), Angelic Haywood (Nurse) Indications/Pre-Op Diagnosis: Evaluation of unexplained GI bleeding presenting with Hematochezia, Lastcolonoscopy: January 2020, Positive fecal immunochemicaltest Medications: Fentanyl 100 micrograms IV, Midazolam 2 mgIV, The level of sedation administered wasmoderate Procedure Description: The patient had risks, benefits and alternatives explained to andgave informed consent. The patient had a stable cardiopulmonary status and judged an adequate candidate for conscious sedation. The [id number] was passed through the anus and advanced to the cecum, identified by appendiceal orifice and ileocecal valve. Thecolonoscopy was performed without difficulty. The patient tolerated the procedure well. The quality of the bowel preparation was good. The ileocecal valve, appendiceal orifice, and rectum were photographed. Complications: No immediate complications. Estimated Blood Loss & Specimen: Estimated blood loss: none. Specimen collected - None Findings: The perianal and digital rectal examinations were normal. Multiple medium-mouthed and small-mouthed diverticula were found inthe entire colon. There was no evidence of diverticular bleeding. The exam was otherwise without abnormality. Impressions/Post-Op Diagnosis: - Moderate diverticulosis in the entire examined colon. There was no evidence of diverticular bleeding. - The examination was otherwise normal. - No specimens collected. Recommendation: - Patient has a contact number available for emergencies. The signsand symptoms of potential delayed complications were discussed with the patient. Return to normal activities tomorrow. Written discharge instructions were provided to the patient. - Resume previous diet. - Continue present medications. - No repeat colonoscopy due to current age (66 years or older) andthe absence of colonic polyps. - Miralax 1 capful (17 grams) in 8 ounces of water PO dailyindefinitely. Moderate Sedation: A time out was performed before the procedure. Moderate (conscious) sedation was administered by the endoscopy nurse and supervised bythe endoscopist. The following parameters were monitored: oxygensaturation, heart rate, blood pressure, EKG, CO2, respiratory rate, adequacy of pulmonary ventilation and reponse to care. Please refer to the patient's medical record flowsheets and nursing notes for moderate sedation details. Total physician intraservice time was 23 minutes. Wilfrid Rosales MD 10/02/2023 10:01:10 AM This report has been signed electronically. Note Initiated On: 10/02/2023 8:41 AM Procedure Code(s): --- Professional --- 88951, Colonoscopy, flexible; diagnostic, including collection of specimen(s) bybrushing or washing, when performed (separateprocedure) Diagnosis Code(s): --- Professional --- K92.1, Melena (includes Hematochezia) R19.5, Other fecal abnormalities K57.30, Diverticulosis of large intestine without perforation or abscess withoutbleeding CPT copyright 2021 [employer]. All rights reserved. The codes documented in this report are preliminary and upon rice cleaning machine tender reviewmay be revised to meet current compliance requirements. Scope In: 9:21:21 AM Scope Withdrawal Time 0 hours 6 minutes 39 seconds Scope Out: 9:42:13 AM Wilfrid Rosales MD PROCEDURE ORD * (ABNORMAL) OCCULT BLOOD IFOBT STOOL (09/21/2023 10:24 AM BOTTLE FEEDER) STOOL BLOOD ,IFOBT Positive(A ) Negative 09/25/2023 11:17 AM BOTTLE FEEDER [facility] Stool STOOL SPECIMEN / Unknown Non-Blood / Unknown 09/21/2023 10:24 AM BOTTLE FEEDER 09/25/2023 10:24 AM BOTTLE FEEDER Cortney Alcantar LABORATORY [facility] [address] [place] [address], from Last 3 Months Advance Directives Latest Code Status on File Code Status Date Activated Date Inactivated Comments Full Code 07/05/2018 2:00 PM 07/06/2018 2:10 AM Code Status History Code Status Date Activated Date Inactivated Comments Full Code 06/21/2018 1:10 PM 06/22/2018 2:15 AM Full Code 02/18/2016 6:45 AM 02/18/2016 11:14 AM Full Code 10/08/2015 7:35 AM 10/08/2015 2:37 PM Full Code 09/18/2014 8:04 AM 09/18/2014 12:50 PM Care Teams Poultry Field Service Technician Relationship Specialty Start Date End Date Kathy Larose MD [address] [place] [address] PCP - General Family Practice 10/02/22
--- OUTSIDE RECORDS SUMMARY | 2023-12-22 20:11 | XMS_ITS | Patient Health Record ---
Author Name Unknown Organization [facility] Address [id number] [place], [place] [id number] Care Team Providers Care External Grinder Name Role Phone KATHERINEYOGIMARTI Primary Care Provider ALLERGIES Allergen (clinical drug ingredient) Drug/Non Drug [...] ATTN Claims [address] NAZARIO Connor [id number] YANICK ESPINAL Self - patient is the insured coin4ce [address] [place] [id number] YANICK ESPINAL Self - patient is the insured MEDICAL (GENERAL) HISTORY Medical History History ICD Code HTN Cataracts Heart problems Surgical History Surgery Date(Month/Year) stent 2010 Hospitalization History Reason Date(Month/Year) heart
== END 2023-12-22 20:06 | disposition home or self-care (01) ==
LOC: SLEEP 20:08
PROVIDERS: PCP Family Medicine; Visit Provider Internal Medicine
DX: G47.10 Hypersomnia, unspecified (principal)
CPT/HCPCS: 95810

== ENCOUNTER 2025-07-27 10:02 | Emergency (ER) | payer MEDICARE, SELFPAY ==
--- OUTSIDE RECORDS SUMMARY | 2025-06-27 13:12 | XMS_ITS | Encounter Summary ---
Author Organization [facility] Address [address] [place] [address] Care Team Providers Care Garnett Room Worker Name Role Phone Unavailable Primary Care Provider Unavailabl e Reason for Visit * Reason Comments Urinary Problem Presents with urethr al burning for 2 days Encounter Details Date Type Department Care Team (Late st Contact Info) Description 06/27/2025 1:12 PM CDT - 06/27/2025 2:24 PM CDT Emergency [facility] [address] [place] [id number] Nghia Anders, PKojoAKojo-C., P.A. 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 - 06/27/2025 2:18 PM CDT Take the antibiotics as prescribed. Consider azo for the pain with urination. Make sure to drink plenty of fluids. Come back to the emergency department if you worsen. * Attachments The following attachments cannot be sent through Care Everywhere. * Urinary Tract Infection Female (Botswanan) documented in this encounter Medications at Time of Discharge nitrofurantoin monohydrate (Macrobid) 100 mg capsuleIndication s:Cystitis Acute Take 1 capsule (100 mg total) by mouth 2 (two) times a day for 5 days. 10 capsule 06/27/2025 07/02/2025 documented as of this encounter ED Notes * Nghia Anders P.A.-C., P.A. - 06/27/2025 1:48 PM CDT SUBJECTIVE CHIEF COMPLAINT/REASON FOR VISIT Urinary Problem (Presents with urethral burning for 2 days) HISTORY OF PRESENT ILLNESS Maryellen Garland is an 79-year-old female presents to the Emergency Department with a two-day history of dysuria, increased urinary frequency, and urgency. She reports associated abdominal bloating and constipation, for which she has been using stool softeners and MiraLax. She attributes her constipation and overall symptoms to decreased activity and poor fluid intake. She denies fever, chills, flank pain, hematuria, specific abdominal pain, or diarrhea. Her past medical history is significant foratrial fibrillation, a remote pelvic fracture, and a mild cystocele. Her medications include Eliquis, atorvastatin, diltiazem, losartan, pantoprazole, and Fosamax. 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 HENT: Negative for congestion, ear pain, rhinorrhea and sore throat. Respiratory: Negative for cough, chest tightness and shortness of breath. Cardiovascular: Negative for chest pain. Gastrointestinal: Positive for abdominal distention and constipation. Negative for abdominal pain, diarrhea, nausea and vomiting. Genitourinary: Positive for dysuria, frequency and urgency. Negative for flank pain and hematuria. Musculoskeletal: Negative for back pain. Skin: Negative for rash. OBJECTIVE Initial Vitals [06/27/25 1318] Temperature 36.8 ??C Pulse Rate 68 Heart Rate Resp Rate 16 Blood Pressure 132/63 SpO2 98 % Pain Score 2 PHYSICAL EXAMINATION Constitutional: Nursing note and vitals reviewed. Vital signs are normal. She is active. She does not appear ill. No distress. HENT: Head: Normocephalic and atraumatic. Eyes: Conjunctivae and lids are normal. Neck: Phonation normal. Cardiovascular: Normal rate. Pulmonary/Chest: Effort normal. No tachypnea. No respiratory distress. Abdominal: Normal appearance. exhibits no distension. There is no abdominal tenderness. There is norebound and no guarding. Musculoskeletal: Cervical back: No pain with movement. Neurological: Alert and oriented to person, place, and time. Normal speech. Skin: Skin is warm, dry and normal color. No rash noted. Psychiatric: She has a normal mood and affect. Relaxed. ASSESSMENT/PLAN Assessment and Plan Maryellen Garland is a 79-year-old female presenting with classic symptoms of a urinary tract infection(UTI). Her urinalysis is consistent with this diagnosis, showing moderate leukocyte esterase, traceblood, and greater than 50 WBCs per high-power field. Given her history of a mild cystocele and recent constipation with decreased fluid intake, these factors likely contributed to the development ofthe UTI. Her vital signs are stable, and she is afebrile and non-toxic appearing, without any signsof pyelonephritis (e.g., CVA tenderness) or sepsis. Due to her age, a urinary culture with sensitivities was sent to ensure appropriate antibiotic coverage. She is being discharged home with oral anti biotics and clear return precautions. Plan: Labs: Urinalysis with microscopic (results reviewed), and urine culture with sensitivities sent. Treatment: The patient was started on a course of nitrofurantoin (Macrobid) 100 mg orally twice daily for 5 days. Discharge: The patient is stable for discharge to home. She was instructed on the importance of completing the full course of antibiotics, increasing her fluid intake, and using her stool softeners as needed. Detailed discharge instructions, including signs and symptoms of worsening infection, were provided.. DIFFERENTIAL DIAGNOSES Urinary Tract Infection (UTI): This is the leading diagnosis based on the patient's classic symptoms of dysuria, frequency, and urgency, along with a urinalysis showing significant pyuria (WBC >50), positive leukocyte esterase, and bacteria. Pyelonephritis: This is less likely given the patient is afebrile and denies any flank pain or CVA tenderness. However, given her age, a less pronounced presentation is possible, and it remains in the differential until ruled out by her stable clinical course and urinalysis findings without systemic signs of infection. Vaginitis/Atrophic Urethritis: In an 79-year-old female, these conditions can present with similar symptoms. However, the urinalysis showing significant pyuria makes an infectious etiology more probable. Interstitial Cystitis: This is a chronic condition and is not likely to present with an acute onsetof symptoms with a pyuric urinalysis. Urethral Syndrome: This is a diagnosis of exclusion for symptoms of UTI with a sterile urine culture. Given the current findings, this is less likely. Nephrolithiasis (Kidney Stones): Although hematuria is present, the absence of acute, severe flank pain makes this less likely.. PROBLEMS ADDRESSED THIS VISIT Dysuria/Urinary Tract Infection: Diagnosed clinically and with urinalysis. Treated with antibiotics. Abdominal Bloating/Constipation: Addressed with non-pharmacological advice (increased fluids) and reinforcement of current home medications (stool softeners, MiraLax).. I reviewed the following external records: primary care records. ED Course as of 06/27/251651Jun 27, 2025 1403 Urinalysis with Microscopic if Indicated: Urine, Midstream(!): Source Urine, Urine, Midstream Clarity Clear Color, U Yellow Blood Trace(!) Nitrite, U Negative Leukocyte Esterase Moderate(!) Protein Urine Random Negative Glucose Negative Ketones, QL(U) Negative Bilirubin Negative pH 6.5 Specific Golden 1.010 Urobilinogen 0.2 1413 Microscopic Manual(!): White Blood Cells 51-100(!) Red Blood Cells 3-10(!) Dysmorphic Red Blood Cells <=25 Bacteria Present(!) Final Diagnoses: as of 06/27/251651 Cystitis Acute The following tests were considered but ultimately not performed: Comprehensive Metabolic Panel (CMP): Considered but not performed due to the absence of vomiting, diarrhea, or other signs of dehydration or electrolyte imbalance. The patient is non-toxic and tolerating oral intake. Blood Cultures: Not performed as the patient is afebrile, hemodynamically stable, and does not exhibit signs of systemic inflammatory response syndrome (SIRS) or sepsis.. Escalation of care, including admission/observation, considered: Admission was not warranted. The patient is hemodynamically stable, tolerating oral intake, and does not show signs of systemic infection or pyelonephritis. She has a safe home environment and the ability to follow up.. Nghia Anders P.A.-C., P.A. 06/27/251654 documented in this encounter Plan of Treatment Not on file documented as of this encounter Procedures Procedure Name Priority Date/Time Associated Diagnosis Comments URINALYSIS WITH MICROSCOPIC IF INDICATED, U STAT 06/27/2025 1:50 PM CDT HC URINALYSIS AUTO W MICRO STAT 06/27/2025 1:50 PM CDT BACTERIAL CULTURE, AEROBIC + SUSC, URINE STAT 06/27/2025 1:40 PM CDT documented in this encounter Results * (ABNORMAL) Microscopic Manual (06/27/2025 1:50 PM CDT) White Blood Cells 51-100(A) /hpf 06/27/2025 2:12 PM CDT CNFL Comment: ----REFERENCE VALUE---- Males: 0-3 Females: 0-10 Unknown: 0-10 Red Blood Cells 3-10(A) 0 - 2 /hpf 2:12 PM CDT CNFL Dysmorphic Red Blood Cells <=25 <=25 % 06/27/2025 2:12 PM CDT [facility] Bacteria Present(A) None Seen 06/27/2025 2:12 PM CDT CNFL Urine 06/27/2025 1:50 PM CDT 06/27/2025 1:50 PM CDT us Nghia Anders P.A.-C. P.A. LAB URINE ORDERABL ES Final Result [facility] [address] [place] [address], [facility] CNFL [facility] [place] [address] * (ABNORMAL) Urinalysis with Microscopic if Indicated: Urine, Midstream (06/27/2025 1:50 PM CDT) Source Urine, Urine, Midstream 06/27/2025 1:50 PM CDT CNFL Clarity Clear Clear 06/27/2025 1:53 PM CDT CNFL Color Yellow 06/27/2025 1:53 PM CDT CNFL Comment: ----REFERENCE VALUE---- Colorless Yellow Lisa Blood Trace(A) Negative 06/27/2025 1:53 PM CDT CNFL Nitrite Negative Negative 06/27/2025 1:53 PM CDT CNFL Leukocyte Esterase Moderate(A) Negative 06/27/2025 1:53 PM CDT CNFL Protein Negative mg/dL 06/27/2025 1:53 PM CDT CNFL Comment: ----REFERENCE VALUE---- Negative Trace Glucose Negative Negative mg/dL 06/27/2025 1:53 PM CDT CNFL Ketones, QI(U) Negative Negative mg/dL 06/27/2025 1:53 PM CDT CNFL Bilirubin Negative Negative 06/27/2025 1:53 PM CDT CNFL pH 6.5 5.0 - 8.0 06/27/2025 1:53 PM CDT CNFL Specific Golden 1.010 1.001 - 1.035 06/27/2025 1:53 PM CDT CNFL Urobilinogen 0.2 0.2 - 1.0 mg/dL 06/27/2025 1:53 PM CDT CNFL Urine (Urine, Midstream) 06/27/2025 1:50 PM CDT 06/27/2025 1:50 PM CDT us Nghia Anders P.A.-C., P.A. LAB URINE ORDERABL ES Final Result [facility] [address] [place] [id number], [facility] in [address] [address] * (ABNORMAL) Bacterial Culture, Aerobic + Susceptibility, Urine (06/27/2025 1:40 PM CDT) Urine Culture ESCHERICHIA COLI >100,000 cfu/mL (A) 06/29/2025 8:31 AM CDT ECLR Urine (Urine, Midstream) 06/27/2025 1:40 PM CDT 06/27/2025 8:46 PM CDT Comment:Specimen Source Site : Urine Narrative Organism Antibiotic Method Susceptibility Escherichia coli Ampicillin SUSCEPTIBILITY, KAIT (MCG/ML) 8 mcg/mL: Susceptible Escherichia coli Piperacillin + Tazobactam SUSCE PTIBILITY, KAIT (MCG/ML) <=4 mcg/mL: Susceptible Escherichia coli Cefazolin SUSCEPTIBILITY, KAIT (MCG/ML) <=4 mcg/mL: Susceptible Comment: The interpretation applies to uncomplicated urinary tract infections only. It also applies to these oral cephalosporins: cefuroxime, cephalexin, and cefprozil. Escherichia coli Ceftazidime SUSCEPTIBILITY, KAIT (MCG/ML) <=1 mcg/mL: Susceptible Escherichia coli Ceftriaxone SUSCEPTIBILITY, KAIT (MCG/ML) <=1 mcg/mL: Susceptible Escherichia coli Cefepime SUSCEPTIBILITY, KAIT (MCG/ML) <=1 mcg/mL: Susceptible Escherichia coli Aztreonam SUSCEPTIBILITY, KAIT (MCG/ML) <=1 mcg/mL: Susceptible Escherichia coli Ertapenem SUSCEPTIBILITY, KAIT (MCG/ML) <=0.5 mcg/mL: Susceptible Escherichia coli Meropenem SUSCEPTIBILITY, KAIT (MCG/ML) <=0.25 mcg/mL: Susceptible Escherichia coli Gentamicin SUSCEPTIBILITY, KAIT (MCG/ML) <=1 mcg/mL: Susceptible Escherichia coli Tobramycin SUSCEPTIBILITY, KAIT (MCG/ML) <=1 mcg/mL: Susceptible Escherichia coli Levofloxacin SUSCEPTIBILITY, KAIT (MCG/ML) <=0.12 mcg/mL: Susceptible Escherichia coli Nitrofurantoin SUSCEPTIBILITY, KAIT (MCG/ML) <=16 mcg/mL: Susceptible Escherichia coli Trimethoprim + Sulfamethoxazole SUSCEPTIBILITY, KAIT (MCG/ML) <=20 mcg/mL: Susceptible Nghia Anders P.A.-C., P.A. LAB MICROBIOLOGY - GENERAL ORDERABLES Final Result [facility] [address] [place] [id number], [facility] ECLR [facility] in [address] [address] documented in this encounter Visit Diagnoses Diagnosis Cystitis Acute- Primary documented in this encounter
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
--- OUTSIDE RECORDS SUMMARY | 2025-07-27 10:05 | XMS_ITS | Encounter Summary ---
Author Organization [facility] Address [address] [place] [address] Care Team Providers Care Reduction Plant Supervisor Name Role Phone Unavailable Primary Care Provider Unavailabl e Encounter Details Date Type Department Care Team (Late st Contact Info) Description 06/29/2025 Results Follow-Up [facility] [address] [place] [address] Jaimee Casanova M.S.N., R.N. 

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
[2025-07-27 10:11] VITALS: BP 145/83; PULSE 78; RESP 18; TEMP 36.8; O2SAT 97; BMI 25.3
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
--- NOTE | 2025-07-27 11:23 | ED.GENADULT ---
HPI - General Adult General Date Seen: 07/27/25 Chief complaint: Abdominal Pain Stated complaint: pain in lower stomach Time Seen by Provider: 07/27/25 11:01 History of Present Illness HPI narrative: Patient is an 79-year-old here for evaluation of some generalized lower abdominal pain which she thinks has been there for 2 or 3 weeks. She says she was seen about a month ago with some urinary symptoms at [facility], diagnosed with UTI and took 5 days of an antibiotic. She feels that the urinary symptoms have resolved, and she does not recall having abdominal pain like this when she was having her bladder infection. She says she has had a normal appetite, she has been eating and drinking fine, has had occasional nausea but no significant vomiting. She has not had any black or bloody stools. She does tend have bouts of constipation alternating with diarrhea, was constipated a couple of days ago but uses MiraLax and suppositories and says she did have a bowel movement earlier today. This does not seem to have any effect on her pain. She denies any prior abdominal surgeries. She last had a colonoscopy many years ago but that was unremarkable. Her weight has been stable. She does note that she feels fatigued and somewhat weaker than usual. She lives independently, does not smoke or drink. Related Data Home Medications ?Medication ?Instructions ?Recorded ?Confirmed apixaban 5 mg tablet (Eliquis) 5 mg PO Q12H 11/24/22 07/27/25 atorvastatin 40 mg tablet 40 mg PO DAILY 11/24/22 07/27/25 estradiol 0.01% (0.1 mg/gram) 1 appful vaginal 11/24/22 vaginal cream diltiazem HCl 120 mg 120 mg PO DAILY 06/04/23 07/27/25 capsule,extended release 24 hr Allergies Allergy/AdvReac Type Severity Reaction Status Date / Time No Known Drug Allergies Allergy Verified 07/27/25 10:20 Review of Systems Status of ROS: Reports: 10 or more systems reviewed and unremarkable except as noted in History and below PFSH PFS Social History Smoking Status: Former smoker Do you use any of these nicotine containing products: None How often do you have a drink containing alcohol: monthly or less How often do you have six or more drinks on one occasion: Never AUDIT-C Alcohol total score: 1 Non-prescribed substance use: denies use Exam Narrative: Exam Narrative: Vital signs reviewed In general, alert, nontoxic Head: Normocephalic, atraumatic. Eyes: Sclera clear. Pupils equal and reactive. ENT: Mucous membranes moist. Neck: Supple without adenopathy. Heart: Regular rate and rhythm without murmur. Lungs: Clear. No increased work of breathing, crackles or wheezes. Abdomen: Soft, nontender to palpation. No masses. Bowel sounds present, active. Extremities: Well perfused, pulses intact. No significant edema. Neurologic: Alert, conversant. Speech fluent, face symmetric. Moves all extremities equally. Skin: Warm, dry well perfused. Affect: Normal. Const: Vital Signs, click to edit/add: Vital Signs - 24 hr 07/27/25 10:11 Temperature 98.3 F Pulse Rate [Right Pulse Oximeter] 78 Respiratory Rate 18 Blood Pressure [Le ft Upper Arm] 145/83 H Pulse Oximetry 97 Oxygen Delivery Me thod Room Air Course Course ED Course: We established an IV, give 500 mL of normal saline. Abdominal exam is really quite benign, diagnostic considerations would include recurrent UTI, diverticulitis, colitis, colon cancer, uterine fibroids, other mass or inflammation among others. I did elect to do CT scan given her age and duration of symptoms. Labs are all reviewed and are normal including a CBC, lactate, CRP. Urinalysis shows trace leukocytes and few bacteria but no red cells or white cells. CT scan by my review shows a couple bubbles of air in the bladder, radiology report reviewed, no little bit of air in the bladder which could be due to recent catheterization but double checking with her she says she has not had a catheter recently. Other considerations would be gas producing bacteria or fistula. She does note a history of bladder prolapse but does not seem to have significant prolapse, does not seem that that is likely to be related to the air in her bladder. To be cautious, I am going to put her on some Keflex to cover for possible infection, but reviewed with her do not think we have a clear diagnosis yet. I have asked her to follow-up closely with primary care, urology follow-up for cystoscopy or other evaluation may be warranted to look for fistula or other abnormalities in the bladder. Return any time for severe pain, fevers, chills, vomiting or other worsening. Vital Signs Vital signs: Initial Vital Signs Temperature 98.3 F 07/27/25 10:11 Temperature Source Temporal Artery Scan 07/27/25 10:11 Pulse Rate 78 07/27/25 10:11 Pulse Rhythm Regular, Irregular 07/27/25 10:11 Respiratory Rate 18 07/27/25 10:11 Blood Pressure 145/83 H 07/27/25 10:11 Blood Pressure Mean 103 07/27/25 10:11 Blood Pressure Position Sitting 07/27/25 10:11 Pulse Oximetry 97 07/27/25 10:11 Oxygen Delivery Method Room Air 07/27/25 10:11 Vital Signs Temperature 98.3 F 07/27/25 10:11 Pulse Rate 78 07/27/25 10:11 Respiratory Rate 18 07/27/25 10:11 Blood Pressure 145/83 H 07/27/25 10:11 Pulse Oximetry 97 07/27/25 10:11 Oxygen Delivery Method Room Air 07/27/25 10:11 Temperature 98.3 F 07/27/25 10:11 Pulse Rate 78 07/27/25 10:11 Respiratory Rate 18 07/27/25 10:11 Blood Pressure 145/83 H 07/27/25 10:11 Pulse Oximetry 97 07/27/25 10:11 Oxygen Delivery Method Room Air 07/27/25 10:11 Medications Administered Medications: Discontinued Medications Generic Name Dose Route Start Last Admin Trade Name Freq PRN Reason Stop Dose Admin Sodium Chloride 500 mls @ 500 mls/hr 07/27/25 11:10 07/27/25 11:44 0.9 % Sodium Chloride 500 Ml IV 07/27/25 12:09 500 mls/hr .Q1H ONE Administration Medical Decision Making Lab Data Labs: Lab Results 07/27/25 07/27/25 Range/Units 11:12 11:45 WBC 4.94 (4.50-11.00) K/uL RBC 4.92 (4.00-5.20) m/uL Hgb 15.4 (12.0-16.0) gm/dL Hct 46.0 (33.0-51.0) % MCV 94 (80-100) fL MCH 31 (26-34) pg MCHC 34 (32-36) gm/dL RDW Coeff of Shorty 11.8 (11.5-15.5) % Plt Count 206 (140-440) K/uL Neut % (Auto) 68.7 (42.0-72.0) % Lymph % (Auto) 19.2 L (20-44) % [place] % (Auto) 8.5 (0.0-11.0) % Eos % (Auto) 2.6 (0.0-7.0) % Baso % (Auto) 1.0 (0.0-3.0) % Neut # (Auto) 3.39 (1.7-7.0) K/uL Lymph # (Auto) 0.90 (0.90-2.90) K/uL [place] # (Auto) 0.40 (0.00-0.90) K/UL Eos # (Auto) 0.13 (0.00-0.50) K/uL Baso # (Auto) 0.05 (0.00-0.30) K/uL Abs Immat Gran (auto) 0.00 (0.00-0.30) K/uL Imm/Tot Granulo (auto) 0.0 % Sodium 140 (135-149) mmol/L Potassium 4.5 (3.6-5.1) mmol/L Chloride 106 (96-114) mmol/L Carbon Dioxide 27 (20-32) mmol/L Anion Gap 7 (7-15) mEq/L BUN 9 (7-30) mg/dL Creatinine 0.6 (0.5-1.5) mg/dL Estimated Creat Clear 35.49 Estimated GFR 91 ml/min Glucose 84 (60-115) mg/dL Lactate 1.1 (0.5-1.9) mmol/L Calcium 9.5 (8.4-10.6) mg/dL Total Bilirubin 0.5 (0.1-1.5) mg/dL Direct Bilirubin 0.0 (0.0-0.5) mg/dL AST 39 H (12-35) U/L ALT 26 (4-35) U/L Alkaline Phosphatase 47 (40-150) U/L C-Reactive Protein < 0.5 L (0.5-1.0) mg/dL Total Protein 7.8 (6.0-8.3) g/dL Albumin 4.5 (3.3-5.0) g/dL Lipase 96 (23-300) U/L Urine Color Yellow (Yellow) Urine Appearance Clear (Clear) Urine pH 7.0 (5.0-8.5) Ur Specific [place] 1.015 (1.000-1.030) Urine Protein Negative (Negative) Urine Glucose (UA) Negative (Negative) Urine Ketones Negative (Negative) Urine Blood Negative (Negative) Urine Nitrite Negative (Negative) Urine Bilirubin Negative (Negative) Urine Urobilinogen 0.2 (0.2-1.0) Ur Leukocyte Esterase Trace A (Negative) Urine RBC 0-2 (0-2) Urine WBC 0-2 (0-5) Ur Squamous Epith Cells Few (None-Few) Urine Bacteria Few A (None) POC Creatinine 0.7 (0.6-1.3) mg/dl Discharge Plan Discharge Clinical Impression: Abdominal pain, Abnormal CT scan, bladder Patient Disposition: Home, Self-Care Condition: Stable Instructions: Abdominal Pain (ED) Additional Instructions: Your CT scan today shows some air in the bladder, of indeterminate cause. Sometimes this can be related to bacteria in the bladder, but other possibilities such as a fistula between the bladder and the bowel have not been ruled out. Please make a follow-up appointment with your primary clinic in the next week for recheck. Take the antibiotic, Keflex, as prescribed. If you have more severe abdominal pain, new symptoms such as fevers, chills, vomiting, return to the ER at any time. Prescriptions: No Action Eliquis 5 mg tablet 5 mg PO Q12H Patient Comments: TAKE 1 TABLET BY MOUTH TWICE DAILY atorvastatin 40 mg tablet 40 mg PO DAILY Patient Comments: TAKE 1 TABLET BY MOUTH EVERY DAY estradiol 0.01 % (0.1 mg/gram) cream 1 appful VAGINAL Patient Comments: PLACE A PEA-SIZED AMOUNT INSIDE THE VAGINAL CANAL NIGHTLY FOR 2 WEEKS THEN 2 NIGHTS PER WEEK AFTER diltiazem HCl 120 mg capsule,extended release 24hr 120 mg PO DAILY Follow Up/Referrals: Kathy Larose MD [Primary Care Provider, Obstetrics] Stand Alone Forms: [facility] Info Instructions
[2025-07-27 11:24] LABS: Appearance Urine Clear (Clear)
[2025-07-27] MEDS: 0.9 % SODIUM CHLORIDE 500 ML 500 ML IV (11:44)
[2025-07-27 11:57] LABS: Lactate Sepsis w/Reflex* 1.1 mmol/L (0.5-1.9)
[2025-07-27 11:58] LABS: Hematocrit* 46.0 % (33.0-51.0); Hemoglobin* 15.4 gm/dL (12.0-16.0); Immature Granulocytes Abs Auto 0.00 K/uL (0.00-0.30); Immature Granulocytes Pct Auto 0.0 %; Mean Corpuscular HGB Conc 34 gm/dL (32-36); Mean Corpuscular Hemoglobin 31 pg (26-34); Mean Corpuscular Volume 94 fL (80-100); RDW Coefficient of Variation % 11.8 % (11.5-15.5); Red Blood Count* 4.92 m/uL (4.00-5.20); White Blood Count* 4.94 K/uL (4.50-11.00)
[2025-07-27 12:00] LABS: Creatinine, Point-of-Care* 0.7 mg/dl (0.6-1.3)
[2025-07-27 12:01] LABS: Lymphocytes Absolute Auto 0.90 K/uL (0.90-2.90); Slide Review Reflex No
[2025-07-27 12:13] LABS: Albumin* 4.5 g/dL (3.3-5.0); Chloride* 106 mmol/L (96-114)
[2025-07-27 12:14] LABS: Potassium* 4.5 mmol/L (3.6-5.1); Sodium* 140 mmol/L (135-149)
[2025-07-27 12:16] LABS: Blood Urea Nitrogen* 9 mg/dL (7-30); Creatinine* 0.6 mg/dL (0.5-1.5); Est. Creatinine Clearance* 35.49; Estimated Glomerular Filt Rate 91 ml/min
[2025-07-27 12:17] LABS: Alanine Aminotransferase* 26 U/L (4-35); Alkaline Phosphatase* 47 U/L (40-150); Anion Gap 7 mEq/L (7-15); Aspartate Amino Transferase* 39 U/L (12-35); Bilirubin Direct* 0.0 mg/dL (0.0-0.5); Bilirubin Total* 0.5 mg/dL (0.1-1.5); Calcium* 9.5 mg/dL (8.4-10.6); Carbon Dioxide* 27 mmol/L (20-32); Glucose* 84 mg/dL (60-115); Total Protein* 7.8 g/dL (6.0-8.3)
== END 2025-07-27 13:25 | disposition home or self-care (01) ==
PROVIDERS: Emergency Provider Emergency Medicine; PCP Family Medicine
DX: R10.30 Lower abdominal pain, unspecified (principal); R93.41 Abnormal radiologic findings on diagnostic imaging of renal pelvis, ureter, or bladder
CPT/HCPCS: 36415; 74177; 80048; 80076; 81001; 82565; 83605; 83690; 85025; 86140; 87086; 99284; J7030; Q9967

== ENCOUNTER 2025-09-27 13:20 | Emergency (ER) | payer MEDICARE, SELFPAY ==
[2025-09-27 13:31] VITALS: BP 166/72; PULSE 72; RESP 16; TEMP 36.8; O2SAT 98; BMI 25.1
--- NOTE | 2025-09-27 13:41 | ED.GENADULT ---
HPI - General Adult General Date Seen: 09/27/25 Chief complaint: Abdominal Pain Stated complaint: stomach ache, weak, tired, sent by clinic Time Seen by Provider: 09/27/25 13:22 History of Present Illness HPI narrative: 79-year-old female with a history of paroxysmal AFib, on Eliquis and diltiazem, Per medical record... House in ER on 07/27/2025 about 2 months ago for abdominal pain. Or workup showed a white count of 4.9, hemoglobin 15.4, platelet count 206. Sodium 140, potassium 4.5, BUN 9, creatinine 0.6. Lactic 1.1. Total bili 0.5. AST 39, ALT 26. Lipase 96. Urinalysis normal. CT scan whowed: 1. There is gas within the bladder. No wall thickening. The 2 most common cause of this are infection or recent instrumentation. Urinary tract otherwise unremarkable. Correlate with urinalysis. Per [facility] medical record she has a history of hypertension, arteriosclerotic cardiovascular disease, paroxysmal AFib, dyslipidemia, osteopenia, her gastric erosions, duodenal polyps, diverticulosis She did have a visit on August 28 to her primary care provider, Dr. Almonte. Per that note she had several symptoms including dizziness, constipation, swelling and pain in her prolapse bladder, urinary frequency Was seen in the clinic on 09/25 for URI symptoms with a week of cough, congestion, generalized weakness. She had had an episode of AFib several days ago which self-resolved. She had some ?heart pain? 2 days ago and took a nitro. In clinic she had a chest x-ray that showed no acute findings. Diagnosed with viral URI shortness of breath. COVID swab was taken but resulted as ?invalid. ? BMP showed sodium 138, potassium 4.0, bicarb 28, glucose 91, BUN 13, creatinine 0.67, glucose 91. TSH was normal at 3.46. Vitamin-D was normal at 57. White blood cell count was 6.3, hemoglobin 14.8, platelet count 249. She had a follow-up nasal swab done yesterday that was negative for COVID, influenza a and B, RSV. She apparently developed lower abdominal pain more on the right side today. She called the [facility] clinic and was told to come to the ER. She says she has been having some abdominal pain off and on for the past few months. It sounds like it had been better for a while but has been flaring up again for the past several days and in particular was much more severe today. This morning the pain was mostly in her right lower quadrant note seems to have moved, ?like a mouse walking around in there!? And is now mostly centered in her left upper quadrant. She is not nauseous. No vomiting but she has had a poor appetite. Bowel movements have been soft. She had been having having trouble with constipation so has been on her regimen of MiraLax and stool softeners and has resultant is now having soft, nonbloody stools. She does have urinary frequency which she thinks is related to her previously known bladder prolapse. No definite dysuria. No bloody urine. No fever. Related Data Home Medications ?Medication ?Instructions ?Recorded ?Confirmed apixaban 5 mg tablet (Eliquis) 5 mg PO Q12H 11/24/22 09/27/25 atorvastatin 40 mg tablet 40 mg PO DAILY 11/24/22 09/27/25 estradiol 0.01% (0.1 mg/gram) 1 appful vaginal 11/24/22 vaginal cream diltiazem HCl 120 mg 120 mg PO DAILY 06/04/23 09/27/25 capsule,extended release 24 hr alendronate 70 mg tablet mg PO 09/27/25 budesonide 1 mg/2 mL suspension mg BID 09/27/25 for nebulization losartan 25 mg tablet 25 mg PO DAILY 09/27/25 09/27/25 nitroglycerin 0.4 mg sublingual 0.4 mg sublingual DAILY 09/27/25 09/27/25 tablet pantoprazole 40 mg tablet,delayed 40 mg PO DAILY 09/27/25 09/27/25 release Previous Rx's ?Medication ?Instructions ?Recorded omeprazole 40 mg capsule,delayed 40 mg PO DAILY #30 caps 09/27/25 release Allergies Allergy/AdvReac Type Severity Reaction Status Date / Time No Known Drug Allergies Allergy Verified 09/27/25 16:53 [facility] Social History Smoking Status: Former smoker Do you use any of these nicotine containing products: None How often do you have a drink containing alcohol: monthly or less How often do you have six or more drinks on one occasion: Never AUDIT-C Alcohol total score: 1 Non-prescribed substance use: denies use Exam Narrative: Exam Narrative: Constitutional: Appears well-developed and well-nourished. Alert. Conversant and polite. Non toxic. HENT: Head: Atraumatic. Nose: Nose normal. Mouth/Throat: Oral mucosa is clear and moist. no trismus. Pharynx normal Eyes: Conjunctivae normal. EOM normal. Pupils equal, round, and reactive to light. No scleral icterus. Neck: Normal range of motion. Neck supple. No tracheal deviation present. Cardiovascular: Normal rate, regular rhythm. No gallop. No friction rub. No murmur heard. Symmetric radial artery pulses Pulmonary/Chest: Effort normal. No stridor. No respiratory distress. No wheezes. No rales. No rhonchi . No tenderness. Abdominal: Soft. Bowel sounds normal. No distension. No mass. Left upper> right lower quadrant> Suprapubic tenderness. No rebound. No guarding. No CVA tenderness. No definite mass. Musculoskeletal: RUE: Normal range of motion. No tenderness. No deformity LUE: Normal range of motion. No tenderness. No deformity RLE: Normal range of motion. No edema. No tenderness. No deformity LLE: Normal range of motion. No edema. No tenderness. No deformity Neurological: Alert and oriented to person, place, and time. Normal strength. CN II-VII intact. No sensory deficit. GCS eye subscore is 4. GCS verbal subscore is 5. GCS motor subscore is 6. Normal coordination Skin: Skin is warm and dry. No rash noted. No pallor. Normal capillary refill. Psychiatric: Normal mood. Normal affect. Const: Vital Signs, click to edit/add: Vital Signs - 24 hr 09/27/25 13:31 Temperature 98.2 F Pulse Rate [Pulse Oximeter] 72 Respiratory Rate 16 Blood Pressure [Ri ght Upper Arm] 166/72 H Pulse Oximetry 98 Oxygen Delivery Me thod Room Air Course Course ED Course: Recheck- patient and family requesting discharge. Waiting on CT. Reevaluation(s) Reevaluation #1: Recheck - discussed with patient and . They are here for discharge. Discussed plan of care for outpatient follow-up. Vital Signs Vital signs: Initial Vital Signs Temperature 98.2 F 09/27/25 13:31 Temperature Source Temporal Artery Scan 09/27/25 13:31 Pulse Rate 72 09/27/25 13:31 Respiratory Rate 16 09/27/25 13:31 Blood Pressure 166/72 H 09/27/25 13:31 Blood Pressure Mean 103 09/27/25 13:31 Pulse Oximetry 98 09/27/25 13:31 Oxygen Delivery Method Room Air 09/27/25 13:31 Vital Signs Temperature 98.2 F 09/27/25 13:31 Pulse Rate 72 09/27/25 13:31 Respiratory Rate 16 09/27/25 13:31 Blood Pressure 166/72 H 09/27/25 13:31 Pulse Oximetry 98 09/27/25 13:31 Oxygen Delivery Method Room Air 09/27/25 13:31 Temperature 98.2 F 09/27/25 13:31 Pulse Rate 72 09/27/25 13:31 Respiratory Rate 16 09/27/25 13:31 Blood Pressure 166/72 H 09/27/25 13:31 Pulse Oximetry 98 09/27/25 13:31 Oxygen Delivery Method Room Air 09/27/25 13:31 Medications Administered Medications: Discontinued Medications Generic Name Dose Route Start Last Admin Trade Name Freq PRN Reason Stop Dose Admin Omeprazole 20 mg 09/27/25 18:52 09/27/25 18:57 Omeprazole [address] PO 09/27/25 18:53 20 mg ONCE ONE Administration Ondansetron HCl 4 mg 09/27/25 14:35 09/27/25 18:57 Ondansetron 2 Mg/Ml Inj IVP 09/27/25 14:36 Not Given ONCE ONE Medical Decision Making MDM Narrative Medical decision making narrative: Presented to the Emergency Department with abdominal pain. She has actually had abdominal pain it sounds like off and on for the past couple of months but it has been worse again today initially in the right lower quadrant and now mostly in the left upper quadrant.The differential diagnosis of abdominal pain includes: Appendicitis, Bowel Obstruction, Ulcer, Ischemia, Cholecystitis, Diverticulitis, Pancreatitis, UTI, kidney stone, Enteritis/Colitis, amongst many other etiologies. Laboratory testing does not reveal a cause for the patient's pain. CTImaging is noted to be normal. previous gas in the bladder that was noted on her last ER visit is now gone. No other signs of new pathology on CT. The exact etiology of the abdominal pain is not clear at this time. No life threatening cause or need for emergent surgery or hospital admission is detected today. Would recommend close outpatient follow-up with PCP with consideration for endoscopy. Will start the patient empirically on a PPI in case her left upper quadrant pain might be a symptom of gastritis or peptic ulcer disease. She is not having any radiographic signs of perforation and no history, exam, or laboratory findings suggesting a recent GI bleeding.The patient was advised that if symptoms do not completely resolve within another 24-36 hours re-evaluation with primary care or return to the ED is indicated. The patient also understands that if they worsen, they should return to the ER right away. I discussed the uncertainty about the diagnosis and answered the patient's questions. Abdominal pain return precautions discussed. Lab Data Labs: Lab Results 09/27/25 09/27/25 Range/Units 15:29 Unknown WBC 6.93 (4.50-11.00) K/uL RBC 4.94 (4.00-5.20) m/uL Hgb 15.5 (12.0-16.0) gm/dL Hct 46.1 (33.0-51.0) % MCV 93 (80-100) fL MCH 31 (26-34) pg MCHC 34 (32-36) gm/dL RDW Coeff of Shorty 11.9 (11.5-15.5) % Plt Count 185 (140-440) K/uL Neut % (Auto) 72.7 H (42.0-72.0) % Lymph % (Auto) 18.2 L (20-44) % [place] % (Auto) 6.2 (0.0-11.0) % Eos % (Auto) 1.6 (0.0-7.0) % Baso % (Auto) 0.7 (0.0-3.0) % Neut # (Auto) 5.00 (1.7-7.0) K/uL Lymph # (Auto) 1.30 (0.90-2.90) K/uL [place] # (Auto) 0.40 (0.00-0.90) K/UL Eos # (Auto) 0.11 (0.00-0.50) K/uL Baso # (Auto) 0.05 (0.00-0.30) K/uL Abs Immat Gran (auto) 0.04 (0.00-0.30) K/uL Imm/Tot Granulo (auto) 0.6 % Sodium 137 (135-149) mmol/L Potassium 3.8 (3.6-5.1) mmol/L Chloride 100 (96-114) mmol/L Carbon Dioxide 25 (20-32) mmol/L Anion Gap 12 (7-15) mEq/L BUN 13 (7-30) mg/dL Creatinine 0.6 (0.5-1.5) mg/dL Estimated Creat Clear 35.49 Estimated GFR 91 ml/min Glucose 98 (60-115) mg/dL Lactate 1.1 (0.5-1.9) mmol/L Calcium 9.4 (8.4-10.6) mg/dL Total Bilirubin 0.8 (0.1-1.5) mg/dL AST 32 (12-35) U/L ALT 19 (4-35) U/L Alkaline Phosphatase 61 (40-150) U/L Total Protein 7.7 (6.0-8.3) g/dL Albumin 4.5 (3.3-5.0) g/dL Lipase 123 (23-300) U/L Urine Color Yellow (Yellow) Urine Appearance Cloudy A (Clear) Urine pH 7.0 (5.0-8.5) Ur Specific [place] 1.015 (1.000-1.030) Urine Protein Negative (Negative) Urine Glucose (UA) Negative (Negative) Urine Ketones Negative (Negative) Urine Blood Negative (Negative) Urine Nitrite Negative (Negative) Urine Bilirubin Negative (Negative) Urine Urobilinogen 0.2 (0.2-1.0) Ur Leukocyte Esterase 1+ A (Negative) Urine RBC 0-2 (0-2) Urine WBC 2-5 (0-5) Ur Squamous Epith Cells Few (None-Few) Urine Bacteria None (None) Imaging Data CT scan - abdomen: Attestation: I have reviewed the pertinent imaging results. Radiologist's impression: IMPRESSION: 1. No acute findings, no explanation for the patient`s left upper quadrant pain. 2. Resolved prior foci of gas within the bladder. Discharge Plan Discharge Clinical Impression: Abdominal pain Patient Disposition: Home, Self-Care Condition: Stable Instructions: Abdominal Pain (ED) Additional Instructions: As we discussed, so far your workup is reassuring but we do not have an explanation for your pain. I wonder if he might be having acid contreras on the inner lining of your stomach or intestine. For now we will start you on a stomach acid medicine. Take it once per day. Please follow-up with your doctor at the [facility] within the next 1-2 days for recheck. Ask your doctor to reassess her abdominal pain and consider whether not you might need a camera into your stomach ( called an endoscopy ). as we discussed, please come back to the ER right away if you get worse -especially if you have worsening pain, fever, vomiting, bloody or black stools, or if have any other problems. Prescriptions: New omeprazole 40 mg capsule,delayed release(DR/EC) 40 mg PO DAILY Qty: 30 2RF No Action alendronate 70 mg tablet PO pantoprazole 40 mg tablet,delayed release (DR/EC) 40 mg PO DAILY losartan 25 mg tablet 25 mg PO DAILY nitroglycerin 0.4 mg tablet, sublingual 0.4 mg sublingual DAILY budesonide 1 mg/2 mL suspension for nebulization BID Eliquis 5 mg tablet 5 mg PO Q12H Patient Comments: TAKE 1 TABLET BY MOUTH TWICE DAILY atorvastatin 40 mg tablet 40 mg PO DAILY Patient Comments: TAKE 1 TABLET BY MOUTH EVERY DAY estradiol 0.01 % (0.1 mg/gram) cream 1 appful VAGINAL Patient Comments: PLACE A PEA-SIZED AMOUNT INSIDE THE VAGINAL CANAL NIGHTLY FOR 2 WEEKS THEN 2 NIGHTS PER WEEK AFTER diltiazem HCl 120 mg capsule,extended release 24hr 120 mg PO DAILY Follow Up/Referrals: Kathy Larose MD [Primary Care Provider, Obstetrics] Stand Alone Forms: [employer] Info Instructions
--- OUTSIDE RECORDS SUMMARY | 2025-09-27 13:50 | XMS_ITS | Clinical Summary ---
Author Organization [facility] Address [address] [place] [id number] Care Team Providers Care Bond Manager Name Role Phone No Ref-Primary, Physician Primary [...] in an abandoned building, in an overnight care home, or couch-surfing.) Yes 08/05/2024 Are you worried [...] on file Legal Sex Female 4:31 AM [employer] Gender Identity Not on file Sexual Orientation [...] BLOOD ORDERABLES F inal Result [facility] [address] [facility] (1st floor, no room number) [place] [address], [facility] from Last 3 Months or Most Recently Relevant to Health Maintenance Insurance [employer] MEDICARE AD[facility]ANTAGE [facility] Advance Directives For more information, please contact: [phone] * Full Code (Latest Code Status on [...] adin nt/ legal decision maker Care Teams Bond Manager Relationship Specialty Start Date End Date No Ref-Primary, Physician PCP - General 08/09/24
--- OUTSIDE RECORDS SUMMARY | 2025-09-27 13:50 | XMS_ITS | Clinical Summary ---
Author Organization [facility] Address [address] [place] [address] Care Team Providers Care Harp Repairer Name Role Phone Kathy Larose MD Primary Care Provider [phone] Source Comments You are receiving this document as you are listed as the primary care provider,follow-up provider, or the patient has been referred to you for consultation.This is in compliance with the Medicare and[facility] Clinic[facility] EHR Incentive Program,which states Providers who transition their patient to another setting of careor provider of care or refers their patient to another provider of care shouldprovide summary care record for each transition of care or referral. [employer] Allergies No known active allergies Medications ATENOLOL [...] pelvic fract ures without disruption of pelvic [place] 07/23/2024 Social History Tobacco Use Types Packs/Day Years Used Date Smoking Tobacco: Never Smokeless Tobacco: Never [facility] Utilities Answer Date Recorded In the [...] any time in the past [address] [facility], were you homeless or living in a care home (including now)? No 07/24/2024 Comments No Sex [...] to complete this topic Insurance MEDICARE ADVANTAGE [place] [id number] MEDICARE ADVANTAGE [place] [id number] C MEDICARE ADVANTAGE Advance Directives * Full Code (Latest Code Status on File) Date Activated Date Inactivated Comments 07/23/2024 9:23 PM 07/27/2024 5:23 PM Care Teams Harp Repairer Relationship Specialty Start Date End Date Kathy Larose MD [address] [place] [address] PCP - General Obstetrics Gynecology 07/26/24
--- OUTSIDE RECORDS SUMMARY | 2025-09-27 13:50 | XMS_ITS | Clinical Summary ---
Author Organization [facility] Address [address] [place] [address] Care Team Providers Care Information Management Officer Name Role Phone Unavailable Primary Care Provider Unavailabl e Source Comments Patient records contain information from all sites at [facility]. For routine questions regarding patient records, call [phone] during business hours, M-F 8:00 AM - 5:00 PM Central Time. 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 Bacterial Culture, Aerobic + Susceptibility, Urine 06/27/2025 1:12 PM CDT - 06/27/2025 2:24 PM CDT Emergency [facility] [address] [place] [address], [place] [address] Nghia Anders, P.A.-C., P.A. 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 Gender Identity Not on file Sexual [...] 1945 RSV vaccine - (32-36 weeks) or 50+ years (1 - 1-dose 75+ series) 2019 Depression Screening (Annual PHQ-2) 11/16/2024 Fall Risk Screen (Annual) 11/16/2024 COVID-19 Vaccine (2024- season) 2025 11/13/2021, 02/01/2021, 01/04/2021 Influenza Vaccine (#1) 2025 , 07/17/2023, 12/14/2022, Additional history exists Creatinine Level (Kidney Function Test) 11/22/2025 11/22/2024, 08/06/2024, 08/05/2024, Additional history exists Potassium Level 11/22/2025 11/22/2024, 0911/2023, 08/05/2024, Additional history exists Sodium Level 11/22/2025 [...] 8.0 06/27/2025 1:53 PM CDT [facility] Specific [place] 1.010 1.001 - 1.035 06/27/2025 1:53 PM CDT [facility] Urobilinogen 0.2 0.2 - 1.0 mg/dL 06/27/2025 1:53 PM CDT [facility] Urine (Urine, Midstream) 06/27/2025 1:50 PM CDT 06/27/2025 1:50 PM CDT Nghia Anders P.A.-C., P.A. LAB URINE ORDERABL ES Final Result Performing Organization Address [facility] [place] [address], [facility] CNFL [facility] [place] [address] * (ABNORMAL) Microscopic Manual (06/27/2025 1:50 PM [...] P.A. LAB URINE ORDERABL ES Final Result Performing Organization Address [facility]/ZIP Co de Phone Number [address] [address], [facility] in [address] [address] * (ABNORMAL) Bacterial Culture, Aerobic + Susceptibility, [...] Sulfamethoxazole SUSCEPTIBILITY, KAIT (MCG/ML) <=20 mcg/mL: Susceptible us Nghia Anders P.A.-C. P.AKojo LAB MICROBIOLOGY - GENERAL ORDERABLES Final Result [facility] [address] [place] [address], [place] ECLR [facility] in [place] [address] [place] [address] from Last 3 Months Insurance [employer] [facility]
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
--- NOTE | 2025-09-27 14:35 | CRLHL7_ITS ---
For Patients: As a result of the Century Cures Act, medical imaging exams and procedure reports are released immediately into your electronic medical record. You may view this report before your referring provider. If you have questions, please contact your health care provider. INDICATION: Left upper quadrant abdominal pain TECHNIQUE: CT abdomen and pelvis acquired with 67 cc Isovue 370 IV contrast. COMPARISON: CT abdomen pelvis 07/27/2025 and 01/15/2017 FINDINGS: Lower chest: Bibasilar atelectasis. Coronary artery calcifications Liver: Scattered subcentimeter hypoattenuating lesions are grossly unchanged compared to 2017 and likely cysts in the absence of malignancy history. Normal in size and attenuation. No suspicious masses. Gallbladder and bile ducts: Unremarkable. No stones or inflammation. No biliary dilatation. Pancreas: Unremarkable. No mass or inflammation. Spleen: Unremarkable. Normal in size. No masses. Adrenal glands: Unremarkable. No nodules. Kidneys: Bilateral renal hypoattenuating lesions are likely cysts. No suspicious masses, stones, or hydronephrosis. GI tract: Unremarkable. Normal in caliber. No sign of mass or inflammation. Normal appendix. Vasculature: Abdominal aorta is normal in caliber. Mesenteric arteries are patent. Moderate atherosclerotic calcifications Lymph nodes: No lymphadenopathy. Peritoneum/Abdominal Wall: Unremarkable. No sign of mass or infiltration. No free air or significant free fluid. Pelvis: Resolved prior foci of within bladder. Prior hysterectomy Bones: Healed left pubic rami fractures IMPRESSION: 1. No acute findings, no explanation for the patient`s left upper quadrant pain. 2. Resolved prior foci of gas within the bladder. Please note that all CT scans at this facility use dose modulation, iterative reconstruction, and/or weight-based dosing when appropriate to reduce radiation dose to as low as reasonably achievable. Dictated by Iram Lorenzana MD @ 09/27/2025 5:35:55 PM (Electronically Signed)
[2025-09-27 15:33] LABS: Lactate* 1.1 mmol/L (0.5-1.9)
[2025-09-27 15:37] LABS: Hematocrit* 46.1 % (33.0-51.0); Hemoglobin* 15.5 gm/dL (12.0-16.0); Immature Granulocytes Abs Auto 0.04 K/uL (0.00-0.30); Immature Granulocytes Pct Auto 0.6 %; Mean Corpuscular HGB Conc 34 gm/dL (32-36); Mean Corpuscular Hemoglobin 31 pg (26-34); Mean Corpuscular Volume 93 fL (80-100); RDW Coefficient of Variation % 11.9 % (11.5-15.5); Red Blood Count* 4.94 m/uL (4.00-5.20); White Blood Count* 6.93 K/uL (4.50-11.00)
[2025-09-27 15:41] LABS: Lymphocytes Absolute Auto 1.30 K/uL (0.90-2.90); Slide Review Reflex No
[2025-09-27 16:04] LABS: Appearance Urine Cloudy (Clear)
[2025-09-27 16:43] LABS: Albumin* 4.5 g/dL (3.3-5.0); Chloride* 100 mmol/L (96-114); Potassium* 3.8 mmol/L (3.6-5.1); Sodium* 137 mmol/L (135-149)
[2025-09-27 16:46] LABS: Alanine Aminotransferase* 19 U/L (4-35); Alkaline Phosphatase* 61 U/L (40-150); Anion Gap 12 mEq/L (7-15); Aspartate Amino Transferase* 32 U/L (12-35); Bilirubin Total* 0.8 mg/dL (0.1-1.5); Blood Urea Nitrogen* 13 mg/dL (7-30); Calcium* 9.4 mg/dL (8.4-10.6); Carbon Dioxide* 25 mmol/L (20-32); Creatinine* 0.6 mg/dL (0.5-1.5); Est. Creatinine Clearance* 35.49; Estimated Glomerular Filt Rate 91 ml/min; Glucose* 98 mg/dL (60-115); Total Protein* 7.7 g/dL (6.0-8.3)
[2025-09-27] MEDS: OMEPRAZOLE 20 MG CAPSULE DR PO (18:57)
== END 2025-09-27 19:03 | disposition home or self-care (01) ==
PROVIDERS: Emergency Provider Emergency Medicine; PCP Family Medicine
DX: R10.9 Unspecified abdominal pain (principal)
CPT/HCPCS: 36415; 74177; 80053; 81001; 83605; 83690; 85025; 87086; 99283; 99284; 99285; A9270; Q9967

== ENCOUNTER 2025-10-27 10:22 | Outpatient (CLI) | payer MEDICARE, SELFPAY ==
--- NOTE | 2025-10-27 12:06 | P.ANES_ITS ---
Anesthesia Charges Start Date/Time Anesthesia Start Date: 10/27/25 Anesthesia Start Time: 11:50 Stop Date/Time Anesthesia Stop Date: 10/27/25 Anesthesia Stop Time: 12:03 Summary Extremes of Age - Over 70 or under 1: SENIOR ANIMAL TRAINER Coding CPT Codes CPT Codes: ANES UPR GI NDSC PX NOS - 24577 ([id number]) P3 - PATIENT W/SEVERE SYS DISEASE, QK - OIL HEATER OPERATOR 2-4 CNCRNT ANES PROC, QX - SENIOR ANIMAL TRAINER SVC W/ MD MED DIRECTION Additional Codes: Summary - Extremes of Age - Over 70 or under 1: SENIOR ANIMAL TRAINER ([id number])
--- NOTE | 2025-10-27 12:06 | W.ANESCHARGE ---
Anesthesia Charges Start Date/Time Anesthesia Start Date: 10/27/25 Anesthesia Start Time: 11:50 Stop Date/Time Anesthesia Stop Date: 10/27/25 Anesthesia Stop Time: 12:03 Summary Extremes of Age - Over 70 or under 1: BAR FINISH OPERATOR Coding CPT Codes CPT Codes: ANES UPR GI NDSC PX NOS - 93364 ([id number]) P3 - PATIENT W/SEVERE SYS DISEASE, QK - END STAPLER 2-4 CNCRNT ANES PROC, QX - BAR FINISH OPERATOR SVC W/ MD MED DIRECTION Additional Codes: Summary - Extremes of Age - Over 70 or under 1: BAR FINISH OPERATOR ([id number])
--- NOTE | 2025-10-27 12:44 | P.ANES_ITS ---
Anesthesia Charges Start Date/Time Anesthesia Start Date: 10/27/25 Anesthesia Start Time: 11:50 Stop Date/Time Anesthesia Stop Date: 10/27/25 Anesthesia Stop Time: 12:03 Summary Extremes of Age - Over 70 or under 1: MDA Coding CPT Codes CPT Codes: ANES UPR GI NDSC PX NOS - 41724 ([id number]) QK - YARN COMBER 2-4 CNCRNT ANES PROC, QX - AUTOMOTIVE REPAIR TECHNICIAN SVC W/ MD MED DIRECTION, P3 - PATIENT W/SEVERE SYS DISEASE Additional Codes: Summary - Extremes of Age - Over 70 or under 1: MDA ([id number])
== END 2025-10-27 10:23 | disposition home or self-care (01) ==
LOC: OP CLINIC 10:23
PROVIDERS: PCP Family Medicine; Visit Provider Internal Medicine Gastroenterology
DX: R10.13 Epigastric pain (principal); K31.7 Polyp of stomach and duodenum; K31.89 Other diseases of stomach and duodenum
CPT/HCPCS: 00731; 43239; 99100; J2704; J3490

== ENCOUNTER 2025-11-01 22:03 | Emergency (ER) | payer MEDICARE, SELFPAY ==
--- OUTSIDE RECORDS SUMMARY | 2025-11-01 22:05 | XMS_ITS | Encounter Summary ---
Author Organization [place] Address [facility] [place] [address] Care Team Providers Care Final Inspection Supervisor Name Role Phone No Ref-Primary, Physician Primary Care Provider Reason for Visit * ReasonOnset DateCommentsFollow Up11/01/2025 Encounter Details DateTypeDepartmentCare Team (Latest Contact Info)Dqgqbspfvzz39/17/2025Telephone [facility] [address] [place] [address] Juaquin Alvarado, RN Follow Up Social History Tobacco UseTypesPacks/DayYears UsedDateSmoking Tobacco: FormerSmokeless Tobacco: NeverAlcohol UseStandard Drinks/WeekCommentsNot Currently0 (1 standard drink = 0.6 oz pure alcohol)Adolescent EducationAnswerDate RecordedGetting School Help NeededNot on file08/30/2023Food InsecurityAnswerDate RecordedWithin the past 12 months, did you worry that your food would run out before you got money to buy more?No08/05/2024Within the past 12 months, did the food you bought just not last and you didn???t have money to getmore?No08/05/2024Housing StabilityAnswer Date RecordedDo you have housing? (Housing is defined as stable permanent housing and does not include staying outside in a car, in a tent, in an abandoned building, in an overnight intermediate, or couch-surfing.)Yes08/05/2024re you worried about losing your housing?No08/05/2024Financial Resource Strain AnswerDate RecordedWithin the past 12 months, have you or your family members you live with been unable to get utilities (heat, electricity) when it was really needed?No08/05/2024Transportation NeedsAnswerDate RecordedWithin the past 12 months, has lack of transportation kept you from medical appointments, getting your medicines, non-medical meetings or appointments, work, or from getting things that you need?No08/05/2024CommentsNoSex and Gender InformationValueDate RecordedSex Assigned at BirthNot on fileLegal SexFemale 09/19/2012 4:31 AM CSTGender IdentityNot on fileSexual OrientationNot on file documented as of this encounter Miscellaneous Notes * Telephone Encounter - Juaquin Alvarado, RN - 11/01/2025 9:27 PM CST Patient reports she was seen at [facility] 5 days ago for an endoscopy and was informed while there is she experiences stomach pain then she should return. Patient she reports she is bloatedand her stomach hurts all over RN advised that if she was instructed to return to the hospital then that is what she should do. Patient verbalized understanding and agreed with recommendation. BUILDER documented in this encounter Plan of Treatment Not on file documented as of this encounter Visit Diagnoses Not on filedocumented in this encounter Care Teams Team MemberRelationshipSpecialtyStart DateEnd Date No Ref-Primary, Physician PCP - General08/09/24documented as of this encounter
--- OUTSIDE RECORDS SUMMARY | 2025-11-01 22:05 | XMS_ITS | Clinical Summary ---
Author Organization [facility] Address [address] [place] [address] Care Team Providers Care Certified Substance Abuse Counselor Name Role Phone Rommel Larose MD Primary Care Provider [phone] Allergies Active AllergyReactionsCriticalityNoted DateCommentsAdhesive Tape-SiliconesRash Ltvzuk3406/21/20188465YnqkgihdjwrNevkquuLcclli67/07/2017 Medications MedicationSigDispense QuantityRefillsLast FilledStart DateEnd DateStatus acetaminophen (TYLENOL EXTRA STRGTH) 500 mg tablet Take 2 Tablets (1,000 mg) by mouth three times daily. Max acetaminophen dose: 4000mg in 24 hrs.07/27/2024ctive methocarbamoL (ROBAXIN) 500 mg tablet Take 1 Tablet (500 mg) by mouth every 6 hours if needed (muscle pain and spasm). 07/27/2024ctive polyethylene glycoL (MIRALAX) 17 gram/scoop powder Mix 1 scoop (17 g) in liquid then take by mouth once daily if needed for Constipation.07/27/2024ctive lidocaine 4 % topical patch Apply topically to L chest wall for 12hr per 24hr period.08/06/2024ctive diclofenac topical (VOLTAREN) 1 % gel Apply 2 g topically to affected area(s) 4 times daily if needed.08/06/2024ctive Graduated Compression Stockings Indications:Bilateral lower extremity edemaFor personal use. Length: calf Strength: 20-30 mmHg 2 Packet 4Active calcium carbonate-vitamin D3, 600 mg-400 unit, 600 mg-10 mcg (400 unit) tablet Indications:Age-related osteoporosis without current pathological fractureTake 1 Tablet by mouth two times daily with meals. 200 Tablet 4Active nitroglycerin (NITROSTAT) 0.4 mg sublingual tablet Indications:Arteriosclerotic heart disease (ASHD)PLACE 1 UNDER THE TONGUE EVERY 5 MINUTES IF NEEDED FOR CHEST PAIN (UP TO 3 DOSES). 25 Tablet 605Active apixaban (ELIQUIS) 5 mg tablet Indications:Paroxysmal atrial fibrillation (HC)Take 1 Tablet (5 mg) by mouth two times daily. 200 Tablet 5Active pantoprazole (PROTONIX) 40 mg delayed-release tablet Indications:Acute gastric erosionTake 1 Tablet (40 mg) by mouth once daily. 100 Tablet 5Active atorvastatin 40 mg tablet Indications:Arteriosclerotic heart disease (ASHD)Take 1 Tablet (40 mg) by mouth once daily. 93 Tablet 5Active losartan 25 mg tablet Indications:Essential hypertensionTake 1 Tablet (25 mg) by mouth once daily. 90 Tablet 5Active Restasis MultiDose 0.05 % drop Indications:Bilateral keratitis siccaINSTILL 1 DROP INTO THE AFFECTED EYE(S) TWICE DAILY 16.5 mL 5Active mometasone (NASONEX) (50 mcg each actuation) nasal spray Indications:Chronic nasal congestionInhale 2 Sprays in both nostrils once daily. 17 g 5Active alendronate (FOSAMAX) 70 mg tablet Indications:Age related osteoporosis, unspecified pathological fracture presence Take 1 Tablet (70 mg) by mouth once a week in the morning. Take on empty stomach with full glass ofwater. Do not lie down for 1 hr. 13 Tablet 5Active dilTIAZem CD (CARDIZEM CD) 120 mg extended release 24 hr capsule Indications:Paroxysmal atrial fibrillation (HC)TAKE 1 CAPSULE BY MOUTH ONCE DAILY AND 2 CAPSULES BY MOUTH AT BEDTIME 300 Capsule 5Active fluticasone (50 mcg per actuation) nasal solution (FLONASE) Indications:Acute non-recurrent frontal sinusitisInhale 2 Sprays in both nostrils once daily if needed for Rhinitis (Sinus Pressure or Nasal Congestion). 9.9 mL 5Active FLUoxetine (PROZAC) 10 mg capsule Indications:AnxietyTake 1 Capsule (10 mg) by mouth once daily in the morning. 30 Capsule 5Active budesonide 1 mg/2 mL neb suspension Indications:Chronic rhinitisPut one respule in sinus rinse kit and irrigate twice daily 120 mL 110/03/2025Discontinued(*Med complete/Regimen complete/Level of care change) omeprazole (PRILOSEC) 40 mg Delayed-Release capsule Take 40 mg by mouth./11/2024Discontinued(*Med complete/Regimen complete/Level of care change) FLUoxetine (PROZAC) 10 mg capsule Indications:AnxietyTake 1 Capsule (10 mg) by mouth once daily in the morning. 30 Capsule /Discontinued(*Availability/Formulary change/Cost of medication) nitrofurantoin macrocrystals/monohydrate (Macrobid) 100 mg capsule Indications:Acute cystitis with hematuriaTake 1 Capsule (100 mg) by mouth two times daily for 9 doses. Next dose 8pm tonight 9 Capsule Expired doxycycline 100 mg tablet Indications:Acute non-recurrent frontal sinusitisTake 1 Tablet (100 mg) by mouth two times daily for 5 days. 10 Tablet Expired Active Problems ProblemNoted DateDiagnosed DateOpen nondisplaced fracture of anterior wall of left acetabulum with routine smigzik8201/04/2025Open nondisplaced fracture of anterior wall of left acetabulum with routine zqgvtau6501/04/2025Open nondisplaced fracture of anterior wall of left acetabulum with routine ruvtgps0412/07/2024Pubic ramus fracture, left, with routine healing, subsequent oucshbemy54/10/2024TV accident causing injury, subsequent gktvrzcaq15/10/2024Sacral fracture, closed 09/23/2024Nondisplaced fracture of anterior wall of left acetabulum, initial encounter for closed gtemgrkw59/08/2024Pubic ramus fracture, left, closed, initial iuhhxxnlf48/08/2024TV accident causing injury, initial encounter 09/23/2024denomatous duodenal polyp03/22/2024 Overview (03/22/2024): EGD 03/2024 duodenal TA, repeat EGD in 1 year S/P gqqjvnzwzems47/05/2024Cystocele, gyduyulqvyi72/05/2024aroxysmal atrial omysfcagjklk19/17/2022aroxysmal SVT (supraventricular tachycardia)11/27/2021 Bilateral keratitis sicca1Hyperopia of both eyes with astigmatism and kkdpsgxeuu86/19/2018Chronic thoracic back pain12/01/2017Bilateral pseudophakia 01/29/2017Acute gastric gppzahv6701/21/2017 Overview (01/21/2017): EGD 01/2017 erosions ASCVD (arteriosclerotic cardiovascular disease)10/08/2015 Overview (10/08/2015): -Stenting to diagonal one 05/2010 -Angiogram 06/2013: Patent diagonal one stent -Stress Myoview 09/2015 Small area of mild ischemia in the apical anterior wall and apex EF 65% Xwkndjasxn46/31/2013 Overview (09/15/2013): 2005 Llqixzgtgjzq10/22/2010Diverticulosis of colon (without mention of hemorrhage) 05/13/2006 Overview (04/08/2012): Colonoscopy January 2006 Colonoscopy 03/2012 diverticulosis repeat in 10 years VITREOUS MDJLKIPBAHLG72/03/2000Essential lwiycebcirdc27/04/1999 Resolved Problems ProblemNoted DateDiagnosed DateResolved ErldZsfkzhihbmzt91/31/202312/02/2023 Episodic azzktqxeeedzktk61/31/202312/hronic bronchitis, unspecified chronic bronchitis type/oronary artery disease of [place] artery of [place] heart with stable angina cgvljehm25/cute right-sided low back pain without rskxruyo63yspnea10/08/2015 10/19/2023SOB (shortness of breath)hest pain06/27/2013 09/15/2024bdominal pain, rtrbrzuubn03 Overview (04/09/2012): EGD 03/2012 Reactive gastropathy Arteriosclerotic heart disease (ASHD) Overview (05/27/2010): - 05/27/10 Cor angio: 90% Prox D1, otherwise mild CAD, EF 65% by LV gram; s/p BMS to Diagonal Other prolapse of vaginal eaton without mention of uterine ypiyojpw00/28/2010 10/19/2023HYPERCHOLESTEROLEMIA, PURELACRIMAL INSUFFICIENCY Encounters DateTypeDepartmentCare AxguIhsybhyfchu07/16/2025Refill [facility] [address] [place] [address] Lizeth Horta DO Refill Request (Mometasone)10/27/2025 10:45 AM CSTProcedure Only [facility] at [facility] [address] [place] [address] Wilfrid Rosales MD 10/27/2025Refill [facility] [address] [place] [address] Rommel Larose MD Refill Request (Fluoxetine)10/27/20254466Bhypza27/08/2025Telephone [facility] [address] [place] [address] Wilfrid Rosales MD Questions (ANTIBIOTICS)10/20/2025 1:15 PM CSTOffice Visit [facility] [address] [place] [phone] Clementine Gutierrez MD Cough (The patient reports having a cough/sinus issues for about a week now. ) 10/20/2025Nurse Triage [facility] [address] [facility] [place] [address] Rommel Larose MD Sinus Ttmwhll9010/19/2025 8:00 AM CSTAncillary Procedure [facility] [address] [place] [address] 10/19/20254472Kxqenu19/01/2025 12:40 PM CSTOffice Visit [facility] [address] [place] [address] Rommel Larose MD Pre-Op Exam (10/27/2025); Hospital F/U (Seen on 10/12/2025 for UTI patient has medication concerns.)10/16/20254435Zmexgb22/27/2025 7:29 AM INVESTIGATIONS CHIEF - 10/12/2025 8:34 AM CSTEmergency [address] [address] Yesenia Walker MD Acute cystitis with hematuria (Primary Dx) Discharge Disposition: Home Self Care10/12/20258918Otelwu97/21/2025Telephone [facility] [address] [place] [address] Wilfrid Rosales MD Bscbzfeic91/20/2025 1:40 PM CSTAncillary Procedure [facility] [address] [place] [address] 10/05/2025 12:40 PM CSTOffice Visit [facility] [address] [place] [address] Rommel Larose MD ER Follow up (from stomach pain)10/05/20257226Nynmij25/14/2025Refill [facility] [address] [place] [address] Rommel Larose MD Refill Request (Diltiazem Cd)09/27/2025Orders Only [facility] Scanner 1 scan: (1-Ord) [place], ABDOMEN PELVIS W CON, 5111/27/2024Nurse Triage [facility] [address] [place] [address] Rommel Larose MD Abdominal Pain (Lower abdominal pain with greater pain on right side); Abdominal Pain/problem (Has bloating of the abdomen and stated she looks and has to unbutton her pants to sit down.)09/26/2025 1:10 PM CSTNurse/Clinic Staff Only [address] [address] Testing (VIRAL PANEL)09/26/2025Telephone [address] [address] Jailene Galdamez PA Pwfnsxn0509/25/2025 3:15 PM CSTAncillary Procedure [address] [address] 09/25/2025 2:30 PM CSTOffice Visit [facility] [address] [place] [address] Jailene Galdamez PA URI (x1 week, cough, weak, congestion)09/25/20251634Sxlrwa89/20/2025Refill [address] [address] Rommel Larose MD Refill Request (Alendronate)08/28/2025 10:00 AM CDTOffice Visit [address] [address] Rommel Larose MD Follow Up (sinus /lower back x3 days/)08/28/20255491Jofscb89/07/2025 10:30 AM CDT Procedure Only [facility] [address] [place] [address] Testing (Visual field and results)08/22/2025Travelfrom Last 3 Months Immunizations ImmunizationAdministration DatesNext DueAMB Influenza, IIV3 (Age >=3 years)(Flu Clinic Only)09/06/2013,09/20/2011,09/06/2008COVID-19 vaccine (Moderna 100mcg/0.5mL) PF, MDV02/01/2021,01/04/2021OVID-19 vaccine (Pfizer-BioNTech 30mcg/0.3mL) PF, MDV1Hepatitis B (Peds)06/30/2000,01/23/2000,12/18/1999 Influenza, High-dose Vaaxununnyl51/17/2020,08/25/2019,07/29/2016,08/02/2015, 09/06/2014Influenza, High-dose Quadrivalent Cthljhvzjlf34/29/2023Influenza, IIV3 (Age 6-35 mos)09/20/2011,10/09/2009Influenza, IIV3 (Age >=3 years)09/06/2013, 08/03/2012,09/25/2010,09/06/2008,09/23/2007,10/17/2005,09/27/2002Influenza, Inactivated AIIV4 (Age 65+ Years) Preserv Free07/17/2023,09/05/2022,08/14/2021 Influenza, Inactivated IIV3 (Age 65+ Years) Preserv Free08/30/2025,09/15/2024, 08/30/2018,07/27/2017Pneumococcal Conj 21-Valent (Capvaxive)09/04/2025 Pneumococcal Poly,23-Valent (Pneumovax)05/28/2010Pneumococcal conj 13-Valent (Prevnar 13)11/02/2015RSV, Recombinant ADJ Reconstituted (Arexvy 120MCG/0.5mL) 11/19/2024Td, Preservative Free (age >= 7 Years)05/13/2006Tdap12/14/2022, 08/03/2012Zoster (Shingrix-RZV, recombinant)09/27/2019,01/06/2019Zoster (Zostavax-ZVL, live)08/03/2012 Family History Medical HistoryRelationNameCommentsHypertensionBrother 1HypertensionBrother 2 DepressionBrother 3CharlieHeart DiseaseBrother 3CharlieHypertensionBrother 3 CharlieThyroid DiseaseDaughterOtherFathervascular disArthritisMotherGeneticOther cataract-sisters, mother~detached retina-sister~hypertension- mother, sisters~CAD- sisterHypertensionSister 1Macular degenerationSister 1Hypertension Sister 2HypertensionSister 3Cancer-breastNo Family HistoryCancer-ovarianNo Family HistoryRelationNameStatusCommentsBrother 1AliveBrother 2AliveBrother 3 CharlieDeceasedDaughterFatherDeceasedlived till 90MotherDeceasedlived till 90 OtherSister 1DeceasedSister 2DeceasedSister 3Alive Social History Tobacco UseTypesPacks/DayYears UsedDateSmoking Tobacco: SntfvuNoiptdzwnx481 11/16/1959 - 11/16/1979mokeless Tobacco: Never Tobacco Cessation:Counseling Given: Yes Alcohol UseStandard Drinks/WeekCommentsNot Currently0 (1 standard drink = 0.6 oz pure alcohol)PHQ-2AnswerDate RecordedPHQ-2 TOTAL LRLJU905Social ConnectionsAnswerDate RecordedDo you often feel lonely or isolated from those around you?lcohol UseAnswerDate RecordedHow often do you have a drink containing alcohol?How many drinks containing alcohol do you have on a typical day when you are drinking?How often do you have five or more drinks on one occasion?Financial Resource StrainAnswer Date RecordedDifficulty of Paying Living Eampiqxf033/20/2025Difficulty of Paying Living ExpensesNot on file10/05/2025Food InsecurityAnswerDate RecordedDo you worry your food will run out before you are able to buy more? Transportation NeedsAnswerDate RecordedDoes lack of transportation keep you from medical appointments?Does lack of transportation keep you from work, meetings or getting things that you need?Housing StabilityAnswerDate RecordedWhat is your housing situation today?Interpersonal Safety AnswerDate RecordedAre you being hit, kicked, pushed or yelled at (see row info)?No10/12/2025Interpersonal Safety Abuse 12 - 18Not on file10/12/2025 Interpersonal Safety Ambulatory VulnerabilityNot on file10/12/2025Utilities AnswerDate RecordedDo you have trouble paying for utilities (for example, heat, electricity, water, phone)?CommentsNoSex and Gender InformationValueDate RecordedSex Assigned at BirthNot on fileLegal SexFemale 11/29/2012 5:25 AM CSTGender IdentityNot on fileSexual OrientationNot on file 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 on fileNot on file Not on file Obstetrics History GravidaParaTermPretermABIABSABEctopicMultipleLivingLive Bqiqtb136469NkivTsgszwi GATotal LaborLabor/2nd/9amZzvioaPzdByfuEnuqKQTUsxV7D5KtvwIlzcGJPZLBYhbzKahsZuih Last Filed Vital Signs Vital SignReadingTime TakenCommentsBlood Oubmoenv735/6210/20/2025 1:59 PM INVESTIGATIONS CHIEF Wkloa319210/20/2025 1:59 PM KJABkzgermnpcc43.9 ??C (96.6 ??F)10/12/2025 7:36 AM CSTRespiratory Fuqd165512/12/2024 7:36 AM CSTOxygen Shcswohhtu26%10/20/2025 1:59 PM CSTInhaled Oxygen Concentration--Bhjqsg50.8 kg (134 lb)10/20/2025 1:59 PM INVESTIGATIONS CHIEF Iynuge870 cm (5' 2.21)10/16/2025 12:45 PM CSTBody Mass Index24.35112/17/2024 12:45 PM INVESTIGATIONS CHIEF Plan of Treatment DateTypeDepartmentCare Team (Latest Contact Info)Ckgkvtjxbff54/05/2026 10:50 AM CSTOffice Visit [facility] [address] [place] [address] Rommel Larose MD [address] [place] [address] 02/28/2026 11:00 AM CDTOffice Visit [facility] [address] [place] [address] [place] [address] [place] [address] Health MaintenanceDue DateLast DoneCommentsCOVID-19 vaccine series ( season), 02/01/2021, 01/04/2021Medicare Wellness for age 65+ , 10/02/2022, 09/11/2021, Additional history exists Depression screening for age 12+, 12/15/2024, 09/15/2024, Additional history existsBMI (ht and wt on same day) for age 18+10/16/2026 10/16/2025, 10/05/2025, 08/28/2025, Additional history existsTetanus booster /, 08/03/2012, 05/13/2006Hepatitis B series for 19+Aged Out 06/30/2000, 01/23/2000, 12/18/1999No longer eligible based on patient's age to complete this topicZoster (shingles) series for age 50+Bqgqbihjy91/12/2019, 01/06/2019, 08/03/2012DEXA/DXA scan for age 65+Lyhhnhzvb30/14/2024, 09/16/2013, 05/28/2011 (Declined)RSV vaccine for adults or joemqsphnKxavrlfzl28/04/2025 Influenza RmembwbWxynypuaw52/15/2025, 09/15/2024, 07/17/2023, Additional history existsPneumococcal series for age 50+Glsfvxjpz76/20/2025, 11/02/2015, 05/28/2010 Medical Devices ImplantedTypeAreaManufacturerDevice IdentifierShelf Expiration DateModel / Serial / LotLens Iol 22.0 Wf Qcgtvcusu42qs-17.0 - [id number] Implanted:Qty: 1 on 09/18/2014 [facility]: [employer]05/15/[id number]-35.0# / [id number] / Lens Iol 22.5 Wf Bylqainkd80uo-57.5 - [id number] Implanted:Qty: 1 on 02/18/2016 by [facility]: [employer]10/15/[id number]-60.5# / [id number] / Procedures Procedure NamePriorityDate/TimeAssociated DiagnosisComments TSDMUWXRMVFGEKQZBLFMDODJJBWxvmism50/12/2025 12:00 AM INVESTIGATIONS CHIEF Adenomatous duodenal polyp ECHO TTE COMPLETE WO DJKSKYFQATUF63/04/2025 8:09 AM INVESTIGATIONS CHIEF PRADO (dyspnea on exertion) URINE AENQZKOGccwsny34/01/2025 1:53 PM INVESTIGATIONS CHIEF Dysuria URINE CULTURE INDICATED (QUEST REFLEX ONLY)Vejlmec1410/16/2025 1:53 PM INVESTIGATIONS CHIEF Dysuria CBC WITH AUTO UTEEDFGKBDCQGowaelr68/01/2025 1:53 PM INVESTIGATIONS CHIEF Pre-op exam Dizziness PRADO (dyspnea on exertion) CBC WITH AUTO MQQIZVEZSMCGXjxavqp48/01/2025 1:53 PM INVESTIGATIONS CHIEF Pre-op exam Dizziness PRADO (dyspnea on exertion) COMP METABOLIC SGJETJbakcaa07/01/2025 1:53 PM INVESTIGATIONS CHIEF Pre-op exam Dizziness PRADO (dyspnea on exertion) URINALYSIS HWDPXHQKXDELzbtess06/01/2025 1:53 PM INVESTIGATIONS CHIEF Dysuria UA DIP W/REFLEX TO CULTURE (QUEST)Kpazqyv7710/16/2025 1:53 PM INVESTIGATIONS CHIEF Dysuria URINE LFOLYMYAXLE08/27/2025 7:54 AM INVESTIGATIONS CHIEF URINALYSIS CQXRHSKDQZBCmyrq02/27/2025 7:54 AM INVESTIGATIONS CHIEF UA W/ SEDIMENT EXAM REFLEXED PER BVSQEMFNIqvxv25/27/2025 7:54 AM INVESTIGATIONS CHIEF XR MAMMO GAY BILAT VEREABHumgiiu16/20/2025 2:03 PM INVESTIGATIONS CHIEF Encounter for other screening for malignant neoplasm of breast SCAN-CT FANWGRLYKSOXDU63/12/2025 12:00 AM CSTPR READING EKG - NO CHARGE, COMP DBJRYcygirg83/11/2025 4:24 PM INVESTIGATIONS CHIEF SOB (shortness of breath) Dizziness Chest pain, unspecified type EKG 12 CVMUJkixpsf32/11/2025 4:24 PM INVESTIGATIONS CHIEF SOB (shortness of breath) Dizziness Chest pain, unspecified type COVID/FLU/RSV OEFJMIwvypdc95/11/2025 2:09 PM INVESTIGATIONS CHIEF Viral URI XR CHEST 2 VIEWS PA AND UOZAVPBRIJN03/10/2025 3:23 PM INVESTIGATIONS CHIEF Viral URI SOB (shortness of breath) Chest pain, unspecified type CBC WITH AUTO MVRHYXSFWBXJZvoyste49/10/2025 3:09 PM INVESTIGATIONS CHIEF SOB (shortness of breath) Fatigue, unspecified type VITAMIN D 25 (DEFICIENCY)Tcfhsze4509/25/2025 3:09 PM INVESTIGATIONS CHIEF Vitamin D deficiency TSH WITH KJKIBFMfgjfpu77/10/2025 3:09 PM INVESTIGATIONS CHIEF Fatigue, unspecified type BASIC METABOLIC KNXZQXrpcuyw12/10/2025 3:09 PM INVESTIGATIONS CHIEF Fatigue, unspecified type Dizziness CBC WITH AUTO KGRJMHHPWJVALmkpyje58/10/2025 3:09 PM INVESTIGATIONS CHIEF SOB (shortness of breath) Fatigue, unspecified type COVID/FLU/RSV YOMLUFrfwopj59/10/2025 2:30 PM INVESTIGATIONS CHIEF Viral URI URINALYSIS LNRISFXTYHDDyoowoy28/13/2025 10:50 AM CDT Dysuria URINE VCZEFPXQbcxlzf58/13/2025 10:50 AM CDT Dysuria URINALYSIS MACROSCOPIC - [facility] ONLY POC DIP (QUEST)Tqfxeiu8608/28/2025 10:50 AM CDT Dysuria XR DXA BONE DENSITY 2 SITES CIBSWQviklgw66/14/2024 3:07 PM INVESTIGATIONS CHIEF Postmenopausal from Last 3 Months or Most Recently Relevant to Health Maintenance Results * ESOPHAGOGASTRODUODENOSCOPY (10/27/2025 12:00 AM INVESTIGATIONS CHIEF) Narrative Authorizing ProviderResult TypeResult StatusRobyn Scarlet MAGUIRE PROCEDURE ORD Edited Result - Final * ECHO TTE COMPLETE WO CONTRAST (10/19/2025 8:09 AM INVESTIGATIONS CHIEF)ComponentValueRef Range Test MethodAnalysis TimePerformed AtPathologist SignatureAORTIC VALVE MEAN PG5 mmHgEJECTION JWUXTNAD25%LVEDD3.8cmEJECTION UJTXVFRK64 - 65%Anatomical Region LateralityModalityUltrasoundSpecimen (Source)Anatomical Location / Laterality Collection Method / VolumeCollection TimeReceived Time10/19/2025 7:52 AM INVESTIGATIONS CHIEF Narrative 10/19/2025 8:23 AM INVESTIGATIONS CHIEF ECHOCARDIOGRAM MARYELLEN D MISSYOUGH ?Accession#: ?? [id number] : ?1945 79 years Study Date: ?? 10/19/2025 7:52:56 AM Gender: F ? BP: ? 147/68 mmHg Height: 157.00 cm ? BSA: ?1.60 m? Weight: 60.00 kg ?Tech: ? MJS ?Referring MD: ROMMEL LAROSE Site: ? [facility] Reading Location: Mobile OP Patient Location: Outpatient. Procedure: 2D, Color Doppler and Spectral Doppler. Indication for study: D.O.E. Cardiac Rhythm: Normal sinus.Study quality: Good. Final Impressions: 1. Normal LV size, normal wall thickness, normal global systolic function with an estimated EF of 60 - 65%. 2. Mildly enlarged left atrium. 3. Right ventricular cavity size is normal, global systolic RV function is normal. 4. No significant valve disease detected. Chamber Sizes and Function Normal left ventricular size, normal wall thickness, normal global systolic function with an estimated EF of 60 - 65%. No resting regional wall motion abnormality visualized. Left atrial size is mildly enlarged. Right ventricular cavity size is normal, global systolic RV function is normal. The right atrium is normal. Right atrial area is 14 cm?. The pulmonary artery is of normal size and origin. The sinus of Valsalva is normal sized. The ascending aorta is normal sized. Valves, RV Pressures and Diastolic Function The aortic valve is trileaflet, no stenosis and trivial regurgitation. The mitral valve is normal in structure, trace mitral regurgitation. Normal diastolic function. The tricuspid valve is normal instructure, regurgitation is not evident tricuspid regurgitation. The pulmonic valve is normal. Trace pulmonary regurgitation. TTE images do not appear adequate for transcather intervention with patient supine. Masses, Effusion, Shunts There is no pericardial effusion. The inferior vena cava is normal sized, respiratory size variation greater than 50%. No left to right shunting was detected by limited color flow Doppler interrogation of the interatrial septum. MEASUREMENTS AND CALCULATIONS 2-D Measurements and LV Function: LVID (d) ? 3.8 cm ? LV FS% (2D) ?? 33 % LVID (s) ? 2.6 cm ? LVOT diameter 2.0 cm IVS (d) ?1.0 cm ? HR ?64 bpm LVPW (d) ? 1.1 cm ? LA Vol index ??36 ml/m2 Ao Sinus ? 3.2 cm ? RA area ? 14 cm? Ao Sinus ULN 3.6 cm * ? RV Basal Diam 2.8 cm Asc Ao ? 3.7 cm ? RV Mid Diam ?? 1.6 cm Asc Ao ULN ?? 3.9 cm * * Input age outside of range, reported values correspond to Age = 79 Diastology: Mitral ?Tissue Doppler E Peak 1.0 m/s ??e', Septum ? 0.10 m/s A Peak 1.1 m/s ??e', Lateral ?0.11 m/s E/A ?0.9 ?E/e' Average ?? 9.23 DT ? 207 msec Aortic Valve: Vmax ? 1.5 m/s ??REMEDIOS (V) ?? 2.64 cm? VTI ?0.41 m ?? REMEDIOS (I) ?? 2.45 cm? LVOT V max 1.3 m/s ??Max PG ?9 mmHg LVOT VTI ?? 0.31 m ?? Mean PG ?? 5 mmHg SV ? 100 ml ?? Dim Index 0.77 SV index ?? 62 ml/m? CO ?6.4 l/min ?CI ?4.0 l/min/m? Mitral Valve: MVA ?3.7 cm? MV P 1/2 60 msec Tricuspid Valve and estimated PA pressures: TAPSE 3.0 cm . This study was interpreted by an [facility] accredited facility. ??Final ?? Procedure Note Carla Araujo MD - 10/19/2025 ECHOCARDIOGRAM MARYELLEN GARLAND : 1945 79 years Study Date: 10/19/2025 7:52:56 AM Gender: F BP: 147/68 mmHg Height: 157.00 cm BSA: 1.60 m? Weight: 60.00 kg Tech: CINTHYA Referring MD: ROMMEL LAROSE Site: [facility] Reading Location: Mobile OP Patient Location: Outpatient. Procedure: 2D, Color Doppler and Spectral Doppler. Indication for study: D.O.E. Cardiac Rhythm: Normal sinus.Study quality: Good. Final Impressions: 1. Normal LV size, normal wall thickness, normal global systolic functionwith an estimated EF of 60 - 65%. 2. Mildly enlarged left atrium. 3. Right ventricular cavity size is normal, global systolic RV functionis normal. 4. No significant valve disease detected. Chamber Sizes and Function Normal left ventricular size, normal wall thickness, normal globalsystolic function with an estimated EF of 60 - 65%. No resting regionalwall motion abnormality visualized. Left atrial size is mildly enlarged.Right ventricular cavity size is normal, global systolic RV function isnormal. The right atrium is normal. Right atrial area is 14 cm?. Thepulmonary artery is of normal size and origin. The sinus of Valsalva isnormal sized. The ascending aorta is normal sized. Valves, RV Pressures and Diastolic Function The aortic valve is trileaflet, no stenosis and trivial regurgitation. Themitral valve is normal in structure, trace mitral regurgitation. Normaldiastolic function. The tricuspid valve is normal in structure,regurgitation is not evident tricuspid regurgitation. The pulmonic valveis normal. Trace pulmonary regurgitation. TTE images do not appearadequate for transcather intervention with patient supine. Masses, Effusion, Shunts There is no pericardial effusion. The inferior vena cava is normal sized, respiratory size variation greater than 50%. No left to right shunting was detected by limited color flow Doppler interrogation of the interatrialseptum. MEASUREMENTS AND CALCULATIONS 2-D Measurements and LV Function: LVID (d) 3.8 cm LV FS% (2D) 33% LVID (s) 2.6 cm LVOT diameter2.0 cm IVS (d) 1.0 cm HR 64bpm LVPW (d) 1.1 cm LA Vol index 36ml/m2 Ao Sinus 3.2 cm RA area 14cm? Ao Sinus ULN 3.6 cm * RV Basal Diam2.8 cm Asc Ao 3.7 cm RV Mid Diam1.6 cm Asc Ao ULN 3.9 cm * * Input age outside of range, reported values correspond to Age = 79 Diastology: Mitral Tissue Doppler E Peak 1.0 m/s e', Septum 0.10 m/s A Peak 1.1 m/s e', Lateral 0.11 m/s E/A 0.9 E/e' Average 9.23 DT 207 msec Aortic Valve: Vmax 1.5 m/s REMEDIOS (V) 2.64 cm? VTI 0.41 m REMEDIOS (I) 2.45 cm? LVOT V max 1.3 m/s Max PG 9 mmHg LVOT VTI 0.31 m Mean PG 5 mmHg SV 100 ml Dim Index 0.77 SV index 62 ml/m? CO 6.4 l/min CI 4.0 l/min/m? Mitral Valve: MVA 3.7 cm? MV P 1/2 60 msec Tricuspid Valve and estimated PA pressures: TAPSE 3.0 cm . This study was interpreted by an IAC accredited facility. Final Authorizing ProviderResult TypeResult StatusRommel FLOOD ORDFinal Result * (ABNORMAL) UA Dip w/ reflex* to [[id number]] (10/16/2025 1:53 PM INVESTIGATIONS CHIEF) ComponentValueRef RangeTest MethodAnalysis TimePerformed AtPathologist BqhjsxqpbCZQBVTRMNJVFRBTPH34/01/2025 2:18 PM CSTALTA [facility]IST[facility]ION[facility] HOSPITALAPPEARANCESLIGHTLY CLOUDY(A)CLEAR10/16/2025 2:18 PM CSTTSAILE HEALTH CENTERPECIFIC GRAVITY1.0201.001 - 1.8939210/16/2025 2:18 PM INVESTIGATIONS CHIEF [facility] CLINICPH6.05.0 - 8.012 2:[address] [facility]ENTERGLUCOSENEGATIVENEGATIVE10/16/2025 2:[address] [facility] CENTERBILIRUBINNEGATIVENEGATIVE10/16/2025 2:18 PM CSTALTA VISTA REGIONAL HOSPITALKETONESNEGATIVENEGATIVE10/16/2025 2:18 PM CSTALTA [facility] HOSPITALOCCULT NNHNMLIQFSPNIAXRBFELH30/01/2025 2:18 PM INVESTIGATIONS CHIEF [facility]OSPITALPROTEINNEGATIVENEGATIVE10/16/2025 2:18 PM INVESTIGATIONS CHIEF [facility]OSPITALNITRITENEGATIVENEGATIVE10/16/2025 2:18 PM INVESTIGATIONS CHIEF [facility] HOSPITALLEUKOCYTE SAATYTQYEYKGMAFKRPOQWCAD24/01/2025 2:18 PM CSTTSAILE HEALTH CENTERpecimen (Source)Anatomical Location / LateralityCollection Method / VolumeCollection TimeReceived TimeUrineURINE SPECIMEN / UnknownNon-Blood / Zlbrlhd5310/16/2025 1:53 PM CST10/16/2025 1:53 PM INVESTIGATIONS CHIEF Narrative Authorizing ProviderResult TypeResult Lyudmila Larose MDURINEFinal ResultPerforming OrganizationAddressCity/State/ZIP CodePhone Number [facility] [address] [address], [address] [place] [address], [place] [phone] * URINE CULTURE INDICATED ([facility] REFLEX ONLY) (10/16/2025 1:53 PM INVESTIGATIONS CHIEF)Component ValueRef RangeTest MethodAnalysis TimePerformed AtPathologist SignatureURINE CULTURE INDICATEDSEE NOTE10/16/2025 2:18 PM CSTQUEST DIAGNOSTICSComment: CULTURE INDICATED - RESULTS TO FOLLOWSpecimen (Source)Anatomical Location / LateralityCollection Method / VolumeCollection TimeReceived TimeUrineURINE SPECIMEN / UnknownNon-Blood / Dkdjfxl9710/16/2025 1:53 PM CST10/16/2025 1:53 PM INVESTIGATIONS CHIEF Narrative Authorizing ProviderResult TypeResult StatusRobyn Scarlet Larose MDURINEFinal ResultPerforming OrganizationAddressCity/State/ZIP CodePhone Number [facility] [address] [place] [address], [place] [phone] * CBC WITH AUTO DIFFERENTIAL (10/16/2025 1:53 PM INVESTIGATIONS CHIEF) Only the most recent of2 resultswithin the time period is included. ComponentValueRef RangeTest MethodAnalysis TimePerformed AtPathologist Signature WHITE BLOOD CELL COUNT6.93.8 - 10.8 Thousand/uL10/17/2025 5:20 AM CSTQUEST DIAGNOSTICSRED BLOOD CELL COUNT4.513.80 - 5.10 Million/uL10/17/2025 5:20 AM INVESTIGATIONS CHIEF [facility] BYRHYJFQGVIGSICRPUZUW04.611.7 - 15.5 g/dL10/17/2025 5:20 AM CSTQUEST DSGZTXYZMMVLRMRLONJSX71.835.9 - 46.0 %10/17/2025 5:20 AM CSTQUEST DIAGNOSTICSMCV 94.981.4 - 101.7 fL10/17/2025 5:20 AM CSTQUEST PXGTHWJPXGQIXL35.427.0 - 33.0 pg 10/17/2025 5:20 AM CSTQUEST ILENQFCZGUHQWDV73.131.6 - 35.4 g/dL10/17/2025 5:20 AM CSTQUEST DIAGNOSTICSComment: For adults, a slight decrease in the calculated MCHC value (in the range of 30 to 32 g/dL) is most likely not clinically significant; however, it should be interpreted with caution in correlation with other red cell parameters and the patient's clinical condition. RDW12.011.0 - 15.0 %10/17/2025 5:20 AM CSTQUEST DIAGNOSTICSPLATELET RBRTL803653 - 400 Thousand/uL10/17/2025 5:20 AM CSTQUEST SRKYYLTNYWUJRU00.37.5 - 12.5 fL 10/17/2025 5:20 AM CSTQUEST VFVBLKNXUDXBEXGXECXIQC09.7%10/17/2025 5:20 AM INVESTIGATIONS CHIEF [facility] RXYJXTIDGFSPIVFIHDHHBP02.6%10/17/2025 5:20 AM [facility] MONOCYTES7.6%10/17/2025 5:20 AM CSTQUEST DIAGNOSTICSEOSINOPHILS4.1%10/17/2025 5:20 AM CSTQUEST DIAGNOSTICSBASOPHILS1.0%10/17/2025 5:20 AM [facility]ST[facility] ABSOLUTE TYUPKHNDFAG36778243 - 7800 cells/uL10/17/2025 5:20 AM CSTQUEST DIAGNOSTICSABSOLUTE CBJZEBURVGM738877 - 3900 cells/uL10/17/2025 5:20 AM CSTQUEST DIAGNOSTICSABSOLUTE ITFPXBLVJ116769 - 950 cells/uL10/17/2025 5:20 AM CSTQUEST DIAGNOSTICSABSOLUTE WUUINWKJKRV68189 - 500 cells/uL10/17/2025 5:20 AM CSTQUEST DIAGNOSTICSABSOLUTE IXKTALOAF293 - 200 cells/uL10/17/2025 5:20 AM CSTQUEST DIAGNOSTICSSpecimen (Source)Anatomical Location / LateralityCollection Method / VolumeCollection TimeReceived TimeBloodBLOOD SPECIMEN / UnknownQuest Collect / Njolgmc5210/16/2025 1:53 PM CST10/16/2025 1:53 PM INVESTIGATIONS CHIEF Narrative Authorizing ProviderResult TypeResult StatusRobyn Scarlet Larose MDHEMATOLOGYFinal ResultPerforming OrganizationAddressCity/State/ZIP CodePhone Number [facility] [place] [address], * UA Micro [[id number]] (10/16/2025 1:53 PM INVESTIGATIONS CHIEF) Only the most recent of3 resultswithin the time period is included. ComponentValueRef RangeTest MethodAnalysis TimePerformed AtPathologist Signature WBC UANONE SEEN< OR = 5 /HPF10/17/2025 4:11 AM CSTQUEST DIAGNOSTICSRBC UANONE SEEN< OR = 2 /HPF10/17/2025 4:11 AM CSTQUEST DIAGNOSTICSBACTERIA UANONE SEENNONE SEEN /HPF10/17/2025 4:11 AM CSTQUEST DIAGNOSTICSHYALINE CASTNONE SEENNONE SEEN /LPF112/18/2024 4:11 AM CSTQUEST DIAGNOSTICSSQUAMOUS EPITHELIAL CELLS UANONE SEEN < OR = 5 /HPF10/17/2025 4:11 AM CSTQUEST DIAGNOSTICSNOTE UASEE NOTE10/17/2025 4:11 AM CSTQUEST DIAGNOSTICSComment: This urine was analyzed for the presence of WBC, RBC, bacteria, casts, and other formed elements. Only those elements seen were reported. Specimen (Source)Anatomical Location / LateralityCollection Method / Volume Collection TimeReceived TimeUrineURINE SPECIMEN / UnknownNon-Blood / Unknown 10/16/2025 1:53 PM CST10/16/2025 1:53 PM INVESTIGATIONS CHIEF Narrative Authorizing ProviderResult TypeResult StatusRoblexii Larose MDURINEFinal ResultPerforming OrganizationAddressCity/State/ZIP CodePhone Number [facility] [address] [address], * URINE CULTURE (10/16/2025 1:53 PM INVESTIGATIONS CHIEF) Only the most recent of3 resultswithin the time period is included. ComponentValueRef RangeTest MethodAnalysis TimePerformed AtPathologist Signature CULTURE, URINE, ROUTINESEE NOTE10/18/2025 3:30 AM CSTQUEST DIAGNOSTICSComment: ??CULTURE, URINE, ROUTINE ?Micro Number: ?[id number] ??Test Status: ? Final ??Specimen Source: ?? Urine ??Specimen Quality: ??Adequate ??Result: ?No Growth Specimen (Source)Anatomical Location / LateralityCollection Method / Volume Collection TimeReceived TimeUrineURINE SPECIMEN / UnknownNon-Blood / Unknown 10/16/2025 1:53 PM CST10/16/2025 1:53 PM INVESTIGATIONS CHIEF Narrative Authorizing ProviderResult TypeResult StatusRobyn Scarlet Hegland MDMICROBIOLOGY Final ResultPerforming OrganizationAddressCity/State/ZIP CodePhone Number [facility] [place] [address] [place] [address], * (ABNORMAL) COMP METABOLIC PANEL (10/16/2025 1:53 PM INVESTIGATIONS CHIEF)ComponentValueRef RangeTest MethodAnalysis TimePerformed AtPathologist MfwzlyzdyIGLBIV231076 - 146 mmol/L112/18/2024 3:55 AM CSTQUEST DIAGNOSTICSPOTASSIUM3.53.5 - 5.3 mmol/L 10/17/2025 3:55 AM CSTQUEST OYBIMHLMJLODMYONEKS77539 - 110 mmol/L112/18/2024 3:55 AM CSTQUEST DIAGNOSTICSCARBON WVINRWA8852 - 32 mmol/L112/18/2024 3:55 AM CSTQUEST AMKRNXECBAYNGFAZHL925(H)65 - 99 mg/dL10/17/2025 3:55 AM CSTQUEST DIAGNOSTICSComment: ? Fasting reference interval For someone without known diabetes, a glucose value between 100 and 125 mg/dL is consistent with prediabetes and should be confirmed with a follow-up test. CALCIUM9.18.6 - 10.4 mg/dL10/17/2025 3:55 AM CSTQUEST DIAGNOSTICSCREATININE0.56 (L)0.60 - 0.95 mg/dL10/17/2025 3:55 AM CSTQUEST DIAGNOSTICSBUN/CREATININE RATIO 206 - 22 (calc)10/17/2025 3:55 AM CSTQUEST ETREJWMRTRCNLTY64> OR = 60 mL/min/1.23x65410/17/2025 3:55 AM CSTQUEST DIAGNOSTICSALBUMIN4.33.6 - 5.1 g/dL 10/17/2025 3:55 AM CSTQUEST DIAGNOSTICSPROTEIN, TOTAL6.96.1 - 8.1 g/dL10/17/2025 3:55 AM CSTQUEST DIAGNOSTICSBILIRUBIN, TOTAL0.70.2 - 1.2 mg/dL10/17/2025 3:55 AM CSTQUEST DIAGNOSTICSALKALINE LGHXLHVSLYC3833 - 153 U/L112/18/2024 3:55 AM INVESTIGATIONS CHIEF [facility] HXYAGZQFZOPZBD893 - 29 U/L112/18/2024 3:55 AM CSTQUEST VJAZYKINUVZIMV4577 - 35 U/L112/18/2024 3:55 AM CSTQUEST DIAGNOSTICSUREA NITROGEN (BUN)117 - 25 mg/dL 10/17/2025 3:55 AM CSTQUEST DIAGNOSTICSGLOBULIN2.61.9 - 3.7 g/dL (calc) 10/17/2025 3:55 AM CSTQUEST DIAGNOSTICSALBUMIN/GLOBULIN RATIO1.71.0 - 2.5 (calc) 10/17/2025 3:55 AM CSTQUEST DIAGNOSTICSSpecimen (Source)Anatomical Location / LateralityCollection Method / VolumeCollection TimeReceived TimeBloodBLOOD SPECIMEN / UnknownQuest Collect / Ayylgjq4910/16/2025 1:53 PM CST10/16/2025 1:53 PM INVESTIGATIONS CHIEF Narrative Authorizing ProviderResult TypeResult StatusRobyn Scarlet Larose MDCHEMISTRYFinal ResultPerforming OrganizationAddressCity/State/ZIP CodePhone Number [facility] [address] [address], * (ABNORMAL) UA W/ SEDIMENT EXAM REFLEXED PER CRITERIA (10/12/2025 7:54 AM INVESTIGATIONS CHIEF) ComponentValueRef RangeTest MethodAnalysis TimePerformed AtPathologist SignatureCOLORYellowYellow Color10/12/2025 8:13 AM [facility] LABCLARITYSlightly Cloudy(A)Clear Clarity 10/12/2025 8:13 AM [facility] SPECIFIC GRAVITY,URINE>=1.030(A)1.010, 1.015, 1.020, 1.3740710/12/2025 8:13 AM [facility] LABPH,URINE6.06.0, 7.0, 8.0, 5.5, 6.5, 7.5, 8. 8:13 AM [facility] LABUROBILINOGEN,QUALITATIVENormalNormal EU/dl 10/12/2025 8:13 AM [facility] PROTEIN, OKWUI561(A)Negative mg/dL10/12/2025 8:13 AM [facility] LABGLUCOSE, URINENegativeNegative mg/dL 10/12/2025 8:13 AM [facility] KETONES,URINENegativeNegative mg/dL10/12/2025 8:13 AM [facility] LABBILIRUBIN,CNSPTOysrpoplMsfszqro61/27/2025 8:13 AM [facility] LABOCCULT BLOOD,URINELarge(A)Wizvwqbp04/27/2025 8:13 AM [facility] UDOFZYKZXQPopfvoclEktpqpye42/27/2025 8:13 AM [facility] LABLEUKOCYTE ESTERASE Moderate(A)Rpqwwabg36/27/2025 8:[address] [facility] LABSpecimen (Source)Anatomical Location / Laterality Collection Method / VolumeCollection TimeReceived TimeUrineURINE SPECIMEN / UnknownNon-Blood / Lynicsl7110/12/2025 7:54 AM CST10/12/2025 7:54 AM INVESTIGATIONS CHIEF Narrative Authorizing ProviderResult TypeResult StatusKelly Marilyn Walker MDURINEFinal Result Performing OrganizationAddressCity/State/ZIP CodePhone Number [facility] [address] [place] [address], * XR MAMMO GAY BILAT SCREEN (10/05/2025 2:03 PM INVESTIGATIONS CHIEF)Anatomical RegionLaterality ModalityBREASTS, Breast Left, Breast RightBilateralMammographySpecimen (Source)Anatomical Location / LateralityCollection Method / VolumeCollection TimeReceived Time Impressions 10/05/2025 3:37 PM INVESTIGATIONS CHIEF There is no radiographic evidence for malignancy. Recommend annual mammograms. MAMMOGRAM ASSESSMENT: ??ACR 1 Negative PATIENTS: You will also receive a letter with your examination results in an easy to read format. ??If you have questions about your results, please contact your referring provider. Narrative 10/05/2025 3:37 PM INVESTIGATIONS CHIEF For Patients: As a result of the Century Cures Act, medical imaging exams and procedure reports are released immediately into your electronic medical record. You may view this report before your referring provider. If you have questions, please contact your health care provider. XR MAMMO GAY BILAT SCREEN [[id number]] CLINICAL HISTORY: ??This is an asymptomatic 79 y.o. patient. INDICATION FOR EXAM: Mammogram Screening. TECHNIQUE: CC and MLO views were obtained. ??This study was evaluated with the assistance of Computer-Aided Detection. Breast Tomosynthesis was used in interpretation. COMPARISON FILM: Yes 09/29/24 [facility] 06/09/23 wireWAX FINDINGS: ??There are scattered areas of fibroglandular density. There are no dominant masses, suspicious micro calcifications or areas of architectural distortion. Authorizing ProviderResult TypeResult StatusRobyn Scarlet Hegland MDMAMMOFinal Result * SCAN-CT INTERPRETATION (09/27/2025 12:00 AM INVESTIGATIONS CHIEF)Anatomical RegionLaterality ModalityOther Narrative Authorizing ProviderResult TypeResult StatusScannerOTHERFinal Result * EKG 12 LEAD (09/26/2025 4:24 PM INVESTIGATIONS CHIEF) Narrative Authorizing ProviderResult TypeResult StatusAbby Marcela Galdamez PAEKG ORD Final Result * OK READING EKG - NO CHARGE, COMP ONLY (09/26/2025 4:24 PM INVESTIGATIONS CHIEF) Narrative Authorizing ProviderResult TypeResult StatusAbby Marcela Galdamez PAPB - PROVIDER READINGSFinal Result * COVID/FLU/RSV PANEL (09/26/2025 2:09 PM INVESTIGATIONS CHIEF) Only the most recent of2 resultswithin the time period is included. ComponentValueRef RangeTest MethodAnalysis TimePerformed AtPathologist Signature COVID 19 [place] LQNRRXKGLUpqyuhtjYyynrsqy90/12/2025 2:12 AM [facility]-CENTRAL LABORATORYINFLUENZA A WXUOvsdpknh50/12/2025 2:12 AM [facility]-CENTRAL LABORATORYINFLUENZA B BJRNjhyyxuy18/12/2025 2:12 AM [facility] LABORATORYRespiratory Syncytial Virus Vlmxtbpo03/12/2025 2:12 AM [facility] Specimen (Source)Anatomical Location / LateralityCollection Method / Volume Collection TimeReceived TimeSwabNASOPHARYNGEAL SWAB / UnknownNon-Blood / Unknown 09/26/2025 2:09 PM CST09/26/2025 2:17 PM INVESTIGATIONS CHIEF Narrative Authorizing ProviderResult TypeResult StatusAbby Marcela FELIZ MICROBIOLOGYFinal ResultPerforming OrganizationAddressCity/State/ZIP CodePhone Number [facility] [address] [place] [address], [place] * XR CHEST 2 VIEWS PA AND LATERAL (09/25/2025 3:23 PM INVESTIGATIONS CHIEF)Anatomical Region LateralityModalityCHEST, THORAX, Lung, HEARTComputed RadiographySpecimen (Source)Anatomical Location / LateralityCollection Method / VolumeCollection TimeReceived Time09/25/2025 3:40 PM INVESTIGATIONS CHIEF Impressions 09/25/2025 3:40 PM INVESTIGATIONS CHIEF Stable negative study. Dictated by Carrington Mane MD @ 09/25/2025 3:40:29 PM (Electronically Signed) Narrative 09/25/2025 3:40 PM INVESTIGATIONS CHIEF For Patients: As a result of the Cures Act, medical imaging exams and procedure reports are released immediately into your electronic medical record. You may view this report before your referring provider. If you have questions, please contact your health care provider. INDICATION: Viral URI. Shortness of breath. TECHNIQUE: Chest 2 views. COMPARISON: July 22, 2024 FINDINGS: Tubes and devices: None. Lungs: ??Lungs are clear. ??No sign of infiltrate or mass. ?? Pleura: No pleural effusion. ??No pneumothorax. ?? Heart: ??Heart size and vasculature are normal in caliber and appearance. ?? Vielka and Mediastinum: No enlargement. Bones and soft tissues: ??No significant findings. ?? Procedure Note Carrington Mane MD - 09/25/2025 [...] MD @ 09/25/2025 3:40:29 PM (Electronically Signed) Authorizing ProviderResult TypeResult StatusAbby Marcela Galdamez PAGENERAL IMAGINGFinal Result * TSH WITH REFLEX (09/25/2025 3:09 PM INVESTIGATIONS CHIEF)ComponentValueRef RangeTest Method Analysis TimePerformed AtPathologist SignatureTSH W/REFLEX TO FT43.460.40 - 4.50 mIU/L111/26/2024 7:38 AM CSTQUEST DIAGNOSTICSSpecimen (Source)Anatomical Location / LateralityCollection Method / VolumeCollection TimeReceived Time BloodBLOOD SPECIMEN / UnknownQuest Collect / Ubzdvja0309/25/2025 3:09 PM INVESTIGATIONS CHIEF 09/25/2025 3:09 PM INVESTIGATIONS CHIEF Narrative Authorizing ProviderResult TypeResult StatusAbby Marcela Galdamez PACHEMISTRY Final ResultPerforming OrganizationAddressCity/State/ZIP CodePhone Number [facility] [address] [address], * VITAMIN D 25 (DEFICIENCY) (09/25/2025 3:09 PM INVESTIGATIONS CHIEF)ComponentValueRef RangeTest MethodAnalysis TimePerformed AtPathologist SignatureVITAMIN D,25-OH,TOTAL,IA57 30 - 100 ng/mL09/26/2025 7:38 AM CSTQUEST DIAGNOSTICSComment: Vitamin D Status ? 25-OH Vitamin D: Deficiency: <20 ng/mL Insufficiency: ? 20 - 29 ng/mL Optimal: > or = 30 ng/mL For 25-OH Vitamin D testing on patients on D2-supplementation and patients for whom quantitation of D2 and D3 fractions is required, the QuestAssureD(TM) 25-OH VIT D, (D2,D3), LC/MS/MS is recommended: order code 10648 (patients >2yrs). See Note 1 Note 1 For additional information, please refer to http://education.linkedFA.Mazu Networks/faq/WUW171 (This link is being provided for informational/ educational purposes only.) Specimen (Source)Anatomical Location / LateralityCollection Method / Volume Collection TimeReceived TimeBloodBLOOD SPECIMEN / UnknownQuest Collect / Unknown 09/25/2025 3:09 PM CST09/25/2025 3:09 PM INVESTIGATIONS CHIEF Narrative Authorizing ProviderResult TypeResult StatusAbby Marcela Galdamez PASEND OUTS Final ResultPerforming OrganizationAddressCity/State/ZIP CodePhone Number [employer] [id number] [place] [address], * BASIC METABOLIC PANEL (09/25/2025 3:09 PM INVESTIGATIONS CHIEF)ComponentValueRef RangeTest MethodAnalysis TimePerformed AtPathologist RzjjrbyajHHUDEI737515 - 146 mmol/L 09/26/2025 3:38 AM CSTQUEST DIAGNOSTICSPOTASSIUM4.03.5 - 5.3 mmol/L111/26/2024 3:38 AM CSTQUEST DIAGNOSTICSCARBON CERMGHU5625 - 32 mmol/L111/26/2024 3:38 AM CSTQUEST LXDEVUPARDUSKSLJTN7868 - 99 mg/dL09/26/2025 3:38 AM CSTQUEST DIAGNOSTICSComment: ? Fasting reference interval CALCIUM9.38.6 - 10.4 mg/dL09/26/2025 3:38 AM CSTQUEST DIAGNOSTICSCREATININE0.67 0.60 - 0.95 mg/dL09/26/2025 3:38 AM CSTQUEST DIAGNOSTICSBUN/CREATININE RATIOSEE NOTE:6 - 22 (calc)09/26/2025 3:38 AM CSTQUEST DIAGNOSTICSComment: ?? Not Reported: BUN and Creatinine are within ?? reference range. ? EGFR88> OR = 60 mL/min/1.17v69409/26/2025 3:38 AM CSTQUEST DIAGNOSTICSUREA NITROGEN (BUN)137 - 25 mg/dL09/26/2025 3:38 AM CSTQUEST DIAGNOSTICSELECTROLYTE VPEHJBR32 - 17 mmol/L (calc)09/26/2025 3:38 AM CSTQUEST BLLFYBDUXEQOQRCMWQP40675 - 110 mmol/L111/26/2024 3:38 AM CSTQUEST DIAGNOSTICSSpecimen (Source)Anatomical Location / LateralityCollection Method / VolumeCollection TimeReceived TimeBlood BLOOD SPECIMEN / UnknownQuest Collect / Ywtkndx2009/25/2025 3:09 PM CST09/25/2025 3:09 PM INVESTIGATIONS CHIEF Narrative Authorizing ProviderResult TypeResult StatusAbby Marcelamariah Galdamez PACHEMISTRY Final ResultPerforming OrganizationAddressCity/State/ZIP CodePhone Number [facility] [place] [facility] [address] [place] [address], * (ABNORMAL) POCT Urinalysis Dipstick Only [[id number]] (08/28/2025 10:50 AM CDT) ComponentValueRef RangeTest MethodAnalysis TimePerformed AtPathologist SignatureSPECIFIC GRAVITY1.0101.001 - 1.0313408/28/2025 11:16 AM [facility] OHBYYGGJOANYGTMXAMRFPBCRQNMVK79/13/2025 11:[address] [facility]ENTERGLUCOSENEGATIVENEGATIVE08/28/2025 11:16 AM [facility] XSWCEQZAHQJWVTPWUMGONBERGFIRI40/13/2025 11:[address] [facility] CENTERBILIRUBINNEGATIVENEGATIVE08/28/2025 11:[address] [facility] CENTEROCCULT CAGCDQCVAHWFTSACZVEUO70/13/2025 11:16 AM CDT [facility] UMVFMZQLFXRLGIUXYSMJTQWZQRTTF82/13/2025 11:16 AM CDT [facility] CLINICPH6.55.0 - 8.[address] 11:[address] [facility] CENTERLEUKOCYTE ESTERASETRACE(A)RAQSHTPV41/13/2025 11:16 AM [facility]ENTERpecimen (Source)Anatomical Location / LateralityCollection Method / VolumeCollection TimeReceived TimeUrineURINE SPECIMEN / UnknownNon-Blood / Mtyathu3508/28/2025 10:50 AM CDT1 11:08 AM CDT Narrative Authorizing ProviderResult TypeResult StatusRobyn Scarlet Larose MDURINEFinal ResultPerforming OrganizationAddressCity/State/ZIP CodePhone Number [facility] [place] [facility]LA [facility] [place] [address], [place] [phone] [facility] [address] [facility] [place] [address], [place] [phone] * (ABNORMAL) XR DXA BONE DENSITY 2 SITES AXIAL (09/29/2024 3:07 PM INVESTIGATIONS CHIEF) Anatomical RegionLateralityModalitySpine, HIPS, HIPL, HIPROtherSpecimen (Source)Anatomical Location / LateralityCollection Method / VolumeCollection TimeReceived Time Impressions 10/03/2024 4:29 PM INVESTIGATIONS CHIEF Osteoporosis. RECOMMENDATIONS: The National Osteoporosis Foundation recommends [...] to assess therapeutic efficacy. Linsey Rodriguez PA-C [facility] 10/03/2024 ?? Narrative 10/03/2024 4:29 PM INVESTIGATIONS CHIEF For Patients: Results are automatically released to your wireWAX (Lysanda) account once available, in compliance with federal regulations. This means that you may see your results before your provider has had a chance to review them. Please allow 2-3 business days for your provider to comment on the results. XR DXA Bone Mineral Density (BMD) EXAM LOCATION: [facility] [address] [facility] [address] PATIENT NAME: Maryellen Garland DATE OF : 1945 EXAM DATE: 09/29/2024 REQUESTING PROVIDER: Rommel Larose MD GENDER AT : female HEIGHT: 5' 4 (09/15/2024) WEIGHT: ??136 lb (09/28/2024) MENOPAUSAL STATUS: Postmenopausal RACE/ETHNICITY: White [...] two scanners are made by the same photograph mounter. PROCEDURE: Dual-energy x-ray absorptiometry performed with routine [...] - 10.4 Change from prior in 2013: ??Decrease 10.4%. RESULTS FEMUR Left femoral neck BMD: 0.685 g/cm2 T-Score: - 2.5 Z-Score: - 0.3 Change from prior in 2012: ??Decrease 15.7%. Right femoral neck BMD: 0.712 g/cm2 T-Score: - 2.3 Z-Score: - 0.1 Change from prior in 2013: ??Decrease 9.1%. Left hip BMD: 0.691 g/cm2 T-Score: - 2.5 Z-Score: - 0.4 Change from prior in 2013: ??Decrease 21.6%. Right hip BMD: 0.751 g/cm2 T-Score: - 2.0 Z-Score: + 0.0 Change from prior in 2013: ??Decrease 14.3%. WHO criteria: Normal: T-score at or above -1 SD Osteopenia: T-score between -1.1 and -2.4 SD Osteoporosis: T-score at or below -2.5 SD Authorizing ProviderResult TypeResult StatusRobyn Scarlet Larose MDDEXAFinal Result from Last 3 Months or Most Recently Relevant to Health Maintenance Insurance * Guarantor: Maryellen Garland TypeRelation to PatientDate of BirthPhone Billing AddressPersonal/KzyhnkWbxv90/08/1946 ([place]) [id number] [place] [address] * Guarantor: Maryellen Garland TypeRelation to PatientDate of BirthPhone Billing AddressMotor HyvfsgjFdrr75/08/1946 ([place]) [address] [place] [id number] Advance Directives * Full Code (Latest Code Status on File) Date ActivatedDate InactivatedComments07/05/2018 2:00 PM07/06/2018 2:10 AM * Full Code Date ActivatedDate InactivatedComments06/21/2018 1:10 PM06/22/2018 2:15 AM * Full Code Date ActivatedDate InactivatedComments02/18/2016 6:45 AM02/18/2016 11:14 AM * Full Code Date ActivatedDate UrqnrbhumsfRfduublr49/23/2015 7:35 AM10/08/2015 2:37 PM * Full Code Date ActivatedDate YtahdoiisnkZqtbhglj56/3/2014 8:04 AM09/18/2014 12:50 PM Care Teams Team MemberRelationshipSpecialtyStart DateEnd Date Rommel Larose MD [address] [place] [address] PCP - GeneralFamily Hbbheehv87/17/22
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
--- OUTSIDE RECORDS SUMMARY | 2025-11-01 22:05 | XMS_ITS | Clinical Summary ---
Author Organization [facility] Address [address] [place] [address] Care Team Providers Care Perfect Binder Feeder Offbearer Name Role Phone No Ref-Primary, Physician Primary Care Provider Allergies Active AllergyReactionsCriticalityNoted DateCommentsAdhesive TapeRashMedium 06/21/2018AmoxicillinMuscle Pain (Myalgia)Urczuh2401/20/2017No Known Allergies 10/25/2003 Medications MedicationSigDispense QuantityRefillsLast FilledStart DateEnd DateStatus apixaban ANTICOAGULANT (ELIQUIS) 5 MG tablet Take 5 mg by mouth 2 times dailyActive atorvastatin (LIPITOR) 40 MG tablet Take 40 mg by mouth dailyActive diltiazem ER COATED BEADS (CARDIZEM CD/CARTIA XT) 120 MG 24 hr capsule Take 120 mg by mouth daily.12/08/2023ctive acetaminophen (TYLENOL) 500 MG tablet Take 1,000 mg by mouth 3 times daily.Active diltiazem ER COATED BEADS (CARDIZEM CD/CARTIA XT) 120 MG 24 hr capsule Take 240 mg by mouth at bedtime.Active Lidocaine (LIDOCARE) 4 % Patch Place 1 patch onto the skin every 24 hours. To prevent lidocaine toxicity, patient should be patch free for 12 hrs daily.Active methocarbamol (ROBAXIN) 500 MG tablet Take 500 mg by mouth every 6 hours as needed for muscle spasms.Active nitroGLYcerin (NITROSTAT) 0.[address] 0.4 mg under the tongue every 5 minutes as needed for chest pain. For chest pain place 1 tablet under the tongue every 5 minutes for 3 doses. If symptoms persist 5 minutes after 1st dose call 911.Active omeprazole 20 MG tablet Take 20 mg by mouth daily.Active polyethylene glycol (MIRALAX) 17 g packet Take 17 g by mouth daily as needed for constipation.Active senna-docusate (SENOKOT-S/PERICOLACE) 8.6-50 MG tablet Take 1 tablet by mouth 2 times daily as needed for constipation.Active oxyCODONE (ROXICODONE) 5 MG tablet Indications:Hematoma of skinTake 1-2 tablets (5-10 mg) by mouth every 6 hours as needed for severe pain. For pain 1-5 - 5mg, for pain 6-10 - 10mg 6 tablet 08/06/2024ctive diclofenac (VOLTAREN) 1 % topical gel Indications:Closed nondisplaced fracture of pelvis with routine healing, unspecified part of pelvis, subsequentencounterApply 2 g topically 4 times daily as needed.08/06/2024ctive Active Problems ProblemNoted DateDiagnosed DateInfected tlmiisyb88/20/2024 Encounters DateTypeDepartmentCare PucrYmzbeyjzqsk01/17/2025Telephone [facility] [address] [place] [phone] Juaquin Alvarado, RN Follow Upfrom Last 3 Months Immunizations ImmunizationAdministration DatesNext DueInfluenza Vaccine 65+ (FLUAD)09/05/2022, 08/14/2021 Social History Tobacco UseTypesPacks/DayYears UsedDateSmoking Tobacco: FormerSmokeless [...] in an abandoned building, in an overnight prison, or couch-surfing.)Yes08/05/2024re you worried about losing your [...] Last Filed Vital Signs Vital SignReadingTime TakenCommentsBlood Vbczjyai827/5909 3:23 PM CDT Cysvt001208/06/2024 3:23 PM LVJMuswxaeytsq03.4 ??C (97.6 ??F)08/06/2024 3:23 PM CDTRespiratory Rtgv469108/06/2024 3:23 PM CDTOxygen Xzgetylhgv18%08/06/2024 3:23 PM CDTInhaled Oxygen Concentration--Vqzbac25.5 kg (144 lb 6.4 oz)08/05/2024 9:01 AM ASTTegyco718.5 cm (5' 2)08/05/2024 9:01 AM CDTBody Mass Index26.4109 9:01 AM CDT Plan of Treatment Health MaintenanceDue DateLast DoneCommentsANNUAL REVIEW OF HM WLDOFK61 1945 LIPID1944FALL RISK MGYTJJBHPB20/08/2010RSV VACCINE (1 - 1-dose 75+ series) 2019MEDICARE ANNUAL WELLNESS VISIT3112/02/2021, 1PHQ-2 (once per calendar year)5COVID-19 VACCINE ( season) , 02/01/2021, 01/04/2021INFLUENZA VACCINE (#1)2025 07/17/2023, 12/14/2022, 09/05/2022, Additional history existsDIABETES SCREENING , 08/05/2024, 12/03/2022, Additional history existsDEXA /DVANCE CARE HYCZMYIL194DTAP/TDAP/TD VACCINE (3 - Td or Tdap), 08/03/2012, 05/13/2006PNEUMOCOCCAL VACCINE 50+ JGQKIWozckkjfs38/18/2015, 05/28/2010ZOSTER VACCINECompleted 09/27/2019, 01/06/2019, 08/03/2012MAMMO XDHFUMSEUDcxbpkysdoud03/25/2023, 05/27/2022, 03/21/2021, Additional history existsLUNG CANCER SCREENING Yodcyicotvab12/07/2024HPV VACCINE (No Doses Required)CompletedMENINGITIS VACCINE Aged OutNo longer eligible based on patient's age to complete this topic Procedures Procedure NamePriorityDate/TimeAssociated DiagnosisCommentsBASIC METABOLIC PANEL Diazicq8808/06/2024 5:11 AM CDT from Last 3 Months or Most Recently Relevant to Health Maintenance Results * (ABNORMAL) Basic metabolic panel (08/06/2024 5:11 AM CDT)ComponentValueRef RangeTest MethodAnalysis TimePerformed AtPathologist ItvlhlyewYuodrg353627 - 145 mmol/L08/06/2024 5:51 AM CDTRH LABORATORYPotassium4.13.4 - 5.3 mmol/L 08/06/2024 5:51 AM CDTRH NFBMEJDXUGDceowzvu12504 - 107 mmol/L08/06/2024 5:51 AM CDTRH LABORATORYCarbon Dioxide (CO2)2422 - 29 mmol/L08/06/2024 5:51 AM CDT RH LABORATORYAnion Gap97 - 15 mmol/L08/06/2024 5:51 AM CDTRH LABORATORYUrea Ebyjhemh29.88.0 - 23.0 mg/dL08/06/2024 5:51 AM CDTRH LABORATORYCreatinine0.59 0.51 - 0.95 mg/dL08/06/2024 5:51 AM CDTRH LABORATORYGFR Estimate>90>60 mL/min/1.79m55408/06/2024 5:51 AM CDTRH LABORATORYComment:eGFR calculated using 2020 CKD-EPI equation.Calcium8.7(L)8.8 - 10.4 mg/dL08/06/2024 5:51 AM CDTRH LABORATORYComment:Reference intervals for this test were updated on 05/31/2024 to reflect our healthy population more accurately. There may be differences in the flagging of prior results with similar values performed with this method. Those prior results can be interpreted in the context of the updated reference intervals.Tdwlaii102(H)70 - 99 mg/dL08/06/2024 5:51 AM CDTRH LABORATORY Specimen (Source)Anatomical Location / LateralityCollection Method / Volume Collection TimeReceived TimeBloodSTRUCTURE OF LEFT HAND / UnknownVenipuncture / Purgtlb0508/06/2024 5:11 AM CDT08/06/2024 5:26 AM CDT Narrative Authorizing ProviderResult TypeResult StatusDerek Hayden Fuller MDLAB - BLOOD ORDERABLESFinal ResultPerforming OrganizationAddressCity/State/ZIP CodePhone Number [facility] [address] [place] [facility] (1st floor, no room number) [place] [address], [facility] from Last 3 Months or Most Recently Relevant to Health Maintenance Insurance * Guarantor: CHASE 10-17-03 WRITE ONAccount TypeRelation to PatientDate of PhoneBilling AddressWorker's CompensationEmployer [id number] [place] [address] Advance Directives For more information, please contact: [phone] * Full Code (Latest Code Status on File) Date ActivatedDate InactivatedComments08/06/2024 10:54 AMQuestionAnswerComments Code status determined by:* Discussion with patient/ legal decision maker * Full Code Date ActivatedDate InactivatedComments08/05/2024 5:33 AM08/06/2024 10:54 AMAll basic and advanced life-sustaining interventions are performed as appropriate QuestionAnswerCommentsCode status determined by:* Discussion with patient/ legal decision maker * Full Code Date ActivatedDate InactivatedComments12/03/2022 10:30 PM12/04/2022 12:06 PMAll basic and advanced life-sustaining interventions are performed as appropriate QuestionAnswerCommentsCode status determined by:* Discussion with patient/ legal decision maker Care Teams Team MemberRelationshipSpecialtyStart DateEnd Date No Ref-Primary, Physician PCP - General08/09/24
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
[2025-11-01 22:07] VITALS: BP 165/78; PULSE 63; RESP 20; TEMP 36.5; O2SAT 97; BMI 24.5
[2025-11-01 22:23] LABS: Appearance Urine Clear (Clear)
--- NOTE | 2025-11-01 22:30 | ED.ABDPAIN ---
HPI - Abdominal Pain General Chief Complaint: Abdominal Pain Stated Complaint: abdominal pain Time Seen by Provider: 11/01/25 22:15 History of Present Illness HPI narrative: This 79-year-old female comes in with her reporting abdominal pain that got worse over the past 4 5 hours. She states that the pain is 10/10 in severity but does not appear to be in much acute distress. She reports the pain is diffuse throughout her abdomen. She has been having abdominal pain and had a CT scan with normal findings about a month ago. She had another 1 about 3 months ago. She also had a upper endoscopy 5 days ago. She does not report any nausea. She has been taking some medicine like MiraLax because she does report chronic constipation. She states that she had a small stool that was somewhat hard this morning. She does not report any vomiting or diarrhea. She has not had any fevers. Related Data Home Medications ?Medication ?Instructions ?Recorded ?Confirmed apixaban 5 mg tablet (Eliquis) 5 mg PO Q12H 11/24/22 09/27/25 atorvastatin 40 mg tablet 40 mg PO DAILY 11/24/22 09/27/25 estradiol 0.01% (0.1 mg/gram) 1 appful vaginal 11/24/22 vaginal cream diltiazem HCl 120 mg 120 mg PO DAILY 06/04/23 09/27/25 capsule,extended release 24 hr alendronate 70 mg tablet mg PO 09/27/25 budesonide 1 mg/2 mL suspension mg BID 09/27/25 for nebulization losartan 25 mg tablet 25 mg PO DAILY 09/27/25 09/27/25 nitroglycerin 0.4 mg sublingual 0.4 mg sublingual DAILY 09/27/25 09/27/25 tablet pantoprazole 40 mg tablet,delayed 40 mg PO DAILY 09/27/25 09/27/25 release Previous Rx's ?Medication ?Instructions ?Recorded omeprazole 40 mg capsule,delayed 40 mg PO DAILY #30 caps 09/27/25 release Allergies Allergy/AdvReac Type Severity Reaction Status Date / Time amoxicillin Allergy Unknown Verified 10/27/25 12:11 silicone tapes AdvReac Unknown Uncoded 10/27/25 12:11 Review of Systems Status of ROS Reports: 10 or more systems reviewed and unremarkable except as noted in History and below Narrative Constitutional: No fevers, no weight gain or loss. Eyes: No discharge. No vision changes. HENT: No congestion, no sore throat, no ear pain. Cardiovascular: No chest pain, no palpitations. Respiratory: No shortness of breath, no wheezes, no cough. Gastrointestinal: No vomiting, no diarrhea. Abdominal pain as described above. Genitourinary: No dysuria, no hematuria. Musculoskeletal: Normal range of motion. Skin: No rashes, no pruritis. Neurological: No dizziness, weakness, sensory change, speech change. Endo/Heme/Allergies: No bruising or bleeding. No polydipsia. Pysch: no suicidality, no anxiety, no insomnia. All other systems reviewed and are negative. [facility] Social History Smoking Status: Former smoker Do you use any of these nicotine containing products: None How often do you have a drink containing alcohol: monthly or less How often do you have six or more drinks on one occasion: Never AUDIT-C Alcohol total score: 1 Non-prescribed substance use: denies use Exam Narrative: Exam Narrative: Constitutional: Well-developed, well-nourished, no acute distress. HEENT: Normocephalic, atraumatic. Neck: Normal range of motion. Nontender. Supple. Heart: Regular. No murmurs. Normal rate. Intact distal pulses. Lungs: Clear to auscultation. No chest discomfort. No wheezes, rhonchi, or rales. Abdomen: Normal bowel sounds. Diffuse pain throughout the abdomen. No rebound tenderness. Genitalia: Deferred. Back: No midline tenderness. Normal range of motion. Extremities: Normal range of motion. No injury. Skin: Intact. No rash. Warm. No erythema or pallor. Neurologic: No altered sensation. No weakness. Alert and oriented. Psychiatric: No suicidality. No anxiety or depression. No insomnia. Nursing notes and vitals signs are reviewed. Const: Vital Signs, click to edit/add: Vital Signs - 24 hr 11/01/25 22:07 Temperature 97.7 F Pulse Rate [Pulse Oximeter] 63 Respiratory Rate 20 Blood Pressure [Le ft Upper Arm] 165/78 H Pulse Oximetry 97 Oxygen Delivery Me thod Room Air Course Vital Signs Vital signs: Initial Vital Signs Temperature 97.7 F 11/01/25 22:07 Temperature Source Temporal Artery Scan 11/01/25 22:07 Pulse Rate 63 11/01/25 22:07 Respiratory Rate 20 11/01/25 22:07 Blood Pressure 165/78 H 11/01/25 22:07 Blood Pressure Mean 107 H 11/01/25 22:07 Blood Pressure Position Sitting 11/01/25 22:07 Pulse Oximetry 97 11/01/25 22:07 Oxygen Delivery Method Room Air 11/01/25 22:07 Vital Signs Temperature 97.7 F 11/01/25 22:07 Pulse Rate 63 11/01/25 22:07 Respiratory Rate 20 11/01/25 22:07 Blood Pressure 165/78 H 11/01/25 22:07 Pulse Oximetry 97 11/01/25 22:07 Oxygen Delivery Method Room Air 11/01/25 22:07 Temperature 97.7 F 11/01/25 22:07 Pulse Rate 63 11/01/25 22:07 Respiratory Rate 20 11/01/25 22:07 Blood Pressure 165/78 H 11/01/25 22:07 Pulse Oximetry 97 11/01/25 22:07 Oxygen Delivery Method Room Air 11/01/25 22:07 Medications Administered Medications: Discontinued Medications Generic Name Dose Route Start Last Admin Trade Name Freq PRN Reason Stop Dose Admin Hydrocodone Bitart/Acetaminophen 1 tab 11/01/25 22:29 11/01/25 22:35 Hydrocodone-Acetamin 5-325 Mg 1 Tab PO 11/01/25 22:30 1 tab ONCE ONE Administration Lidocaine/Aluminum/Magnesium/Simeth 30 ml 11/01/25 22:29 11/01/25 22:35 Gi Cocktail (Visc [place]/Antacid) 30 Ml PO 11/01/25 22:30 30 ml ONCE ONE Administration MDM - Abdominal Pain MDM Narrative Medical decision making narrative: This patient comes in reporting abdominal pain as described above. I did review recent notes and lab and imaging results. She did have CT scan 1 month ago and 3 months ago with similar complaints of abdominal pain at that time. I did discuss with the patient and her reassurance is with regard to her exam and vital signs and did nevertheless offer another CT scan but indicated that we may likely not find any cause for her abdominal pain. She has been having abdominal pain and has had testing without significant findings to explain it. The patient preferred to have some treatments to help her with her pain and initially at least forego repeating any lab or imaging studies. The patient received a [place] tablet orally and a GI cocktail. This brought sufficient relief to her pain. She does not appear to have any signs of an acute abdomen. I did re-examine her and her abdomen seems rather benign. She is okay to go home and did receive a prescription for tramadol. She is on Eliquis and would not be a candidate for any and states. She understands that this medicine can be constipating and she does have medicines that she can use to prevent that. Lab Data Labs: Lab Results 11/01/25 Range/Units 22:14 Urine Color Yellow (Yellow) Urine Appearance Clear (Clear) Urine pH 7.0 (5.0-8.5) Ur Specific [place] 1.010 (1.000-1.030) Urine Protein Negative (Negative) Urine Glucose (UA) Negative (Negative) Urine Ketones Negative (Negative) Urine Blood Negative (Negative) Urine Nitrite Negative (Negative) Urine Bilirubin Negative (Negative) Urine Urobilinogen 0.2 (0.2-1.0) Ur Leukocyte Esterase Negative (Negative) Urine RBC 0-2 (0-2) Urine WBC 0-2 (0-5) Ur Squamous Epith Cells Few (None-Few) Urine Bacteria None (None) Discharge Plan Discharge Clinical Impression: Abdominal pain Patient Disposition: Home w/ Parent or Adult Condition: Improved Additional Instructions: Take medication as needed and directed for pain. Continue with other medications as prescribed. Follow up with MD return if worsening. Prescriptions: No Action alendronate 70 mg tablet PO pantoprazole 40 mg tablet,delayed release (DR/EC) 40 mg PO DAILY losartan 25 mg tablet 25 mg PO DAILY nitroglycerin 0.4 mg tablet, sublingual 0.4 mg sublingual DAILY budesonide 1 mg/2 mL suspension for nebulization BID omeprazole 40 mg capsule,delayed release(DR/EC) 40 mg PO DAILY Qty: 30 2RF Eliquis 5 mg tablet 5 mg PO Q12H Patient Comments: TAKE 1 TABLET BY MOUTH TWICE DAILY atorvastatin 40 mg tablet 40 mg PO DAILY Patient Comments: TAKE 1 TABLET BY MOUTH EVERY DAY estradiol 0.01 % (0.1 mg/gram) cream 1 appful VAGINAL Patient Comments: PLACE A PEA-SIZED AMOUNT INSIDE THE VAGINAL CANAL NIGHTLY FOR 2 WEEKS THEN 2 NIGHTS PER WEEK AFTER diltiazem HCl 120 mg capsule,extended release 24hr 120 mg PO DAILY Follow Up/Referrals: Kathy Larose MD [Primary Care Provider, Obstetrics] Stand Alone Forms: DermApproved Info Instructions
[2025-11-01] MEDS: GI COCKTAIL (VISC LIDO/ANTACID) 30 ML PO (22:35)
[2025-11-01] MEDS: HYDROCODONE-ACETAMIN 5-325 MG 1 TAB PO (22:35)
== END 2025-11-01 23:29 | disposition home or self-care (01) ==
PROVIDERS: Emergency Provider Emergency Medicine Emergency Medical Services; PCP Family Medicine
DX: R10.9 Unspecified abdominal pain (principal); K59.09 Other constipation; Z79.01 Long term (current) use of anticoagulants
CPT/HCPCS: 81001; 99283; 99284; A9270